=== PATIENT | female | born 1950 | race Caucasian/White ===

== ENCOUNTER 2020-05-12 12:24 | Outpatient (CLI) | payer MEDICARE, OTHER, SELFPAY ==
[2020-05-12 12:57] LABS: Hematocrit 37.7 % (37.0-47.0); Hemoglobin 12.9 g/dL (12.0-15.0); Mean Corpuscular HGB Conc 34.2 g/dl (32-36); Mean Corpuscular Hemoglobin 32.7 pg (26-34); Mean Corpuscular Volume 95.4 fl (80-100); Mean Platelet Volume 9.7 fl (7.4-10.4); Platelet Count Result 253 k/mm3 (150-375); Red Blood Count 3.95 M/mm3 (4.2-5.4); Red Cell Distribution Width 12.2 % (11.5-14.5); White Blood Count 6.7 K/mm3 (4.5-10.0)
[2020-05-12 13:00] LABS: Hemoglobin A1C 5.9 % (<5.7)
[2020-05-12 13:06] LABS: Alanine Aminotransferase 15 U/L (4-35); Albumin Level 4.2 g/dL (3.5-5.1); Alkaline Phosphatase 93 U/L (38-126); Anion Gap 4 mmol/L (8-16); Aspartate Amino Transferase 22 U/L (14-36); Bilirubin,Total 0.6 mg/dL (0.2-1.3); Blood Urea Nitrogen 18 mg/dL (7-17); Calcium 9.1 mg/dL (8.4-10.2); Carbon Dioxide 35 mmol/L (22-30); Chloride 94 mmol/L (98-107); Cholesterol 136 mg/dL (0-200); Estimated Glomerular Filt Rate 49; Glucose 95 mg/dL (65-105); HDL Direct 84 mg/dL; Potassium 5.2 mmol/L (3.4-5.0); Sodium 133 mmol/L (137-145); Triglycerides 80 mg/dL (<150)
[2020-05-12 13:17] LABS: LDL Cholesterol Direct 44 mg/dL
[2020-05-12 13:37] LABS: Vitamin D 25 Hydroxy 61.6 ng/mL
== END 2020-05-12 12:25 | disposition home or self-care (01) ==
PROVIDERS: PCP Internal Medicine; Referring Provider Nurse Practitioner; Visit Provider Internal Medicine
DX: E78.5 Hyperlipidemia, unspecified (principal); D64.9 Anemia, unspecified; E55.9 Vitamin D deficiency, unspecified; R73.9 Hyperglycemia, unspecified
CPT/HCPCS: 36415; 80053; 80061; 82306; 83036; 85027

== ENCOUNTER 2020-05-24 10:23 | Outpatient (CLI) | payer MEDICARE, OTHER, SELFPAY ==
--- NOTE | ~2020-05-24 | CT_ITS ---
EXAMINATION: CT thoracic lumbar wo con EXAM DATE: 05/24/2020 11:48 INDICATION: Postlaminectomy syndrome. Lumbar radiculopathy. TECHNIQUE: Spiral CT thoracolumbar spine was performed without contrast. Axial, coronal and sagittal images of the thoracic spine were reviewed. Axial, coronal and sagittal images of the lumbar spine we re reviewed. The dose-length product (DLP) for this examination was 794.81 mGy-cm. The exposure was tailored according to patient size (auto mA exposure control), and iterative reconstruction (ASIR) wa s used as additional dose reduction technique. Comparison is made to prior examination from 10/11/2018 . FINDINGS: THORACIC SPINE: Again there is lower cervical fusion hardware. There is 2 to 3 mm anterolisthesis C7 on T1. Chronic moderate compression fracture of T7, unchanged compared to prior study, contributing t o some mid thoracic kyphosis. Mild chronic compression fractures at the superior endplates of T11 and T12. Mild to moderate thoracic dextroscoliosis. There are no osteoblastic or osteolytic lesions iden tified. There is moderate lower thoracic neural foraminal stenosis, left T10-11 and 11-12 most narrow ed on exam. Mild thoracic disc disease. Pacemaker. Sternotomy wires. Paraspinal soft tissue is unrema rkable. Mild to moderate emphysema. LUMBAR SPINE: Transitional L5 segment which is fused to the sacrum. There is mild thoracic levoscolio sis. No more than than mild to moderate neural foraminal stenosis at any given lumbar level. Paraspin al soft tissue is unremarkable. There is no significant interval change. There is pain pump device entering at the L4-5 level, tip at the T12-L1 level. There is moderate to severe chronic central comp ression of L3, some retropulsion of the superior endplate up to 4 mm, burst fracture has been treated with methylmethacrylate injection. The other lumbar vertebral bodies appear maintained. No spondylol ysis. Lumbar disc heights are maintained. The vertebral bodies are aligned in the AP dimension. Left iliac bone harvest site. IMPRESSION: 1. Thoracolumbar scoliosis. 2. Chronic thoracic compression fracture and L2 burst fracture. 3. No appreciable interval change. Reviewed, dictated and finalized at location A.
== END 2020-05-24 10:24 | disposition home or self-care (01) ==
PROVIDERS: PCP Internal Medicine; Visit Provider Physician Assistant
DX: M96.1 Postlaminectomy syndrome, not elsewhere classified (principal); M54.17 Radiculopathy, lumbosacral region; G89.29 Other chronic pain; M41.85 Other forms of scoliosis, thoracolumbar region; M48.54XA Collapsed vertebra, not elsewhere classified, thoracic region, initial encounter for fracture
CPT/HCPCS: 72128; 72131

== ENCOUNTER 2020-07-14 14:56 | Outpatient (CLI) | payer MEDICARE, OTHER, SELFPAY ==
--- NOTE | ~2020-07-14 | XR_ITS ---
EXAMINATION: XR knee LT 3V EXAM DATE: 07/14/2020 15:30 INDICATION: Initial encounter following injury, with pain of the left knee. Injury 3 weeks ago. TECHNIQUE: Left knee lateral, frontal AP, frontal PA tunnel, sunrise projections. There is no prior study for comparison. FINDINGS: No evidence osteochondral defect or joint body in the left knee joint. There is mild tric ompartmental left knee primary osteoarthritis. No joint effusion. There are no acute fractures or dis locations identified. There is no subcutaneous gas. There are arterial calcifications, arterioscler osis. There are no radiopaque foreign bodies. IMPRESSION: Mild left knee osteoarthritis. Reviewed, dictated and finalized at location A. [facility]
--- NOTE | ~2020-07-14 | XR_ITS ---
EXAMINATION: XR hip LT min 2V EXAM DATE: 07/14/2020 15:30 INDICATION: Initial encounter following injury, with pain of the left hip. TECHNIQUE: Left hip frontal, crosstable lateral and 'frog-leg' projections for interpretation. Compar justino is made to prior examination from 03/29/2016. FINDINGS: There is total left hip arthroplasty. Hardware is in expected position. There are no acute fractures identified. There is pain pump overlying the left iliac crest. There are arterial calcific ations, arteriosclerosis. IMPRESSION: Intact left hip arthroplasty. No acute findings or interval change. Reviewed, dictated and finalized at location A. DIGGER IMPRESSION: Intact left hip arthroplasty. No acute findings or interval change .
== END 2020-07-14 14:57 | disposition home or self-care (01) ==
LOC: ANHIMG 15:04
PROVIDERS: PCP Internal Medicine; Visit Provider Nurse Practitioner
DX: M25.552 Pain in left hip (principal); M17.12 Unilateral primary osteoarthritis, left knee
CPT/HCPCS: 73502; 73562

== ENCOUNTER 2020-12-22 11:56 | Inpatient (IN) | payer MEDICARE, OTHER, SELFPAY ==
[2020-12-22] VITALS (26 sets, daily range): BP systolic 71–163; BP diastolic 50–91; PULSE 75–109; RESP 11–26; TEMP 36.6–36.7; O2SAT 89–100; BMI 22.7
--- NOTE | ~2020-12-22 | XR_ITS ---
XR chest port-a-cath/central 12/22/2020 17:07 Indication: Central line placement Procedure: Supine view of the chest Comparison: Comparison to multiple prior studies sequentially, with oldest reviewed study dated 09/2016. Findings: Status post median sternotomy for CABG. Heart size upper normal. Central venous catheter ti p in the SVC. Patchy bilateral infiltrates. No significant pleural effusion or pneumothorax. Pacemake r leads are stable. No acute osseous abnormality. There are surgical changes consistent with cervical fusion. Impression: 1: Patchy bilateral airspace disease which may represent pneumonia or asymmetric edema. Reviewed, dictated and finalized at location A. Impression: 1: Patchy bilateral airspace disease which may represent pneumonia or asymmetri c edema.
--- NOTE | ~2020-12-22 | CT_ITS ---
EXAMINATION: CT abdomen pelvis wo con DATE: 12/23/2020 12:07 INDICATION: Fall, assess position pain pump TECHNIQUE: Computed tomography (CT) of the abdomen and pelvis was performed without intravenous contr ast. The dose-length product (DLP) was 628.39 mGy-cm. Automated exposure control and iterative recons truction technique were employed. COMPARISON: 10/10/2018 FINDINGS: There is mild atelectasis of the lung bases. Cardiomegaly is noted. There are changes of pr ior cardiac surgery. Small pleural effusions are noted. The liver, spleen, pancreas, and adrenal glan ds are normal. Stones or sludge are present in the nondistended gallbladder. There is mild atrophy of the kidneys. The bladder is decompressed by Cedeno catheter. There is calcified atherosclerosis of th e aorta and many of the other arteries. A pain pump is present in the subcutaneous tissues of the lef t lower abdominal wall. The pump appears to be intact. Tubing courses into the central spinal canal a t the level of L3 on the left. There is fat stranding adjacent to the descending colon. Streak artifa ct from bilateral hip arthroplasties obscures visualization of the pelvis. There is a moderate volume of colonic stool. No pathologically enlarged abdominal or pelvic lymph nodes are identified. There i s no free intraperitoneal gas or evidence of bowel obstruction. There is atrophy of the left iliopsoa s muscle. There is an L3 compression fracture with vertebroplasty change. A chronic L1 compression fr acture is stable. There are chronic bilateral sacral insufficiency fractures. IMPRESSION: 1. Patent, grossly unchanged in position. 2. Bilateral inflammatory change adjacent to the descending colon which could reflect colitis. Reviewed, dictated and finalized at location A. IMPRESSION: 1. Patent, grossly unchanged in position. 2. Bilateral inflammatory change adjacent to the descending colon which could r eflect colitis.
--- NOTE | ~2020-12-22 | CT_ITS ---
EXAMINATION: CT cervical spine wo con DATE: 12/22/2020 13:04 INDICATION: Neck injury. TECHNIQUE: Computed tomography (CT) of the cervical spine was performed without intravenous contrast. Automated exposure control and iterative reconstruction technique were employed. The dose-length pro duct was 262.45 mGy-cm. COMPARISON: None FINDINGS: There is mild emphysema. There is 2 mm anterolisthesis of C7 on T1. There are changes of an terior fusion procedure from C3 to C7 with healed interbody bone graft and anterior plate and screws. Vertebral body heights are normal. No fracture. Intervertebral disc heights are normal. There is a b enign bone island in T1 spinous process. The following disc levels are specifically discussed: C2-C3: There is mild bilateral uncovertebral joint osteoarthritis. There is severe bilateral facet shakir int osteoarthritis. There is mild right neural foraminal stenosis. There is mild central canal stenos is. C3-C4: There is mild left uncovertebral joint hypertrophy. There is severe bilateral facet joint oste oarthritis. There is mild bilateral neural foraminal stenosis. There is no central canal stenosis. C4-C5: There is mild left uncovertebral joint hypertrophy. There is mild bilateral facet joint hypert rophy. There is no neural foraminal stenosis. There is no central canal stenosis. C5-C6: There is no uncovertebral joint hypertrophy. There is no facet joint hypertrophy. There is no neural foraminal stenosis. There is no central canal stenosis. C6-C7: There is no uncovertebral joint hypertrophy. There is mild bilateral facet joint hypertrophy. There is mild bilateral neural foraminal stenosis. There is no central canal stenosis. C7-T1: There is mild bilateral uncovertebral joint hypertrophy. There is severe bilateral facet joint osteoarthritis. There is mild bilateral neural foraminal stenosis. There is no central canal stenosi s. IMPRESSION: 1. No fracture. 2. Mild cervical spondylosis. 3. Anterior fusion procedure from C3 to C7. Reviewed, dictated and finalized at location B.
--- NOTE | ~2020-12-22 | CT_ITS ---
EXAMINATION: CT brain wo con INDICATION: Dizziness and fall COMPARISON: 11/08/2018 TECHNIQUE: Standard unenhanced head CT. The dose-length product (DLP) was 1210.66 mGy-cm. The mA was adjusted according to patient size. Iterative reconstruction technique was employed. FINDINGS: There is no acute intraparenchymal hemorrhage. No evidence of mass lesion. No evidence of a cute infarction. There is mild periventricular and subcortical hypodensity probably related to small vessel ischemic disease. There is mild prominence of the sulci and ventricles related to cerebral atr ophy. Intracranial calcified cerebral atherosclerosis is noted. There are no extra-axial collections. There is no mass effect or midline shift. Changes in the globes are likely from ocular lens surgery. There are surgical changes in the sinuses. IMPRESSION: 1. No acute intracranial abnormality. 2. Age related findings. Reviewed, dictated and finalized at location A.
--- NOTE | ~2020-12-22 | XR_ITS ---
EXAMINATION: XR hip LT min 3V w AP pelvis DATE: 12/22/2020 12:52 INDICATION: Left hip pain. Fall. TECHNIQUE: An anteroposterior view of the pelvis and 3 views of left hip were obtained. COMPARISON: Left hip radiographs 07/14/2020 FINDINGS: There is a total left hip arthroplasty in near-anatomic alignment. There is a bipolar right hip hemiarthroplasty in near-anatomic alignment. No periprosthetic lucency to suggest loosening or i nfection. A pump overlies left abdomen. The pump tubing terminates to the left of midline. There are surgical clips in right thigh. There are old healed fractures of right superior and inferior pubic ra mi. No acute fracture. IMPRESSION: 1. Total left hip arthroplasty in near-anatomic alignment. 2. Bipolar right hip hemiarthroplasty in near-anatomic alignment. 3. Partially visualized pump tubing with terminus to the left of midline, which is a change from prio r imaging. Reviewed, dictated and finalized at location B. IMPRESSION: 1. Total left hip arthroplasty in near-anatomic alignment. 2. Bipolar right hip hemiarthroplasty in near-anatomic alignment. 3. Partially visualized pump tubing with terminus to the left of midline, which is a change from prior imaging.
--- NOTE | ~2020-12-22 | XR_ITS ---
EXAMINATION: XR chest 2V DATE: 12/22/2020 12:52 INDICATION: Shortness of breath. Weakness. TECHNIQUE: Frontal and lateral views of the chest were obtained. COMPARISON: Chest single view 11/08/2018, thoracic spine CT 05/24/2020 FINDINGS: Lung volumes are small. There is mild atelectasis in the lower lung zones. No pleural effus ion or pneumothorax. The heart size is normal. Median sternotomy wires and mediastinal surgical clips are seen, likely from prior coronary artery bypass grafting. There is a left chest wall pacer with l yvan in the right atrium and right ventricle. There are surgical clips in the abdomen. There are castillo ges of anterior fusion procedure in cervical spine. There is a chronic burst fracture of T7. A pump o verlies the left abdomen. IMPRESSION: 1. Small lung volumes with mild atelectasis in the lower lung zones. Reviewed, dictated and finalized at location B.
--- NOTE | 2020-12-22 12:18 | ECG_ITS ---
Measurements Intervals Irmo Rate: 79 P: 17 RI: 197 QRS: 5 QRSD: 118 T: 259 QT: 395 QTc: 455 Interpretive Statements SINUS RHYTHM INCOMPLETE RIGHT BUNDLE BRANCH BLOCK CONSIDER INFERIOR INFARCT, AGE INDETERMINATE BORDERLINE ST-T WAVE ABNORMALITY- ANTEROLAT/HIGH LAT LEADS BASELINE ARTIFACT- I, II, III, AVR, AVL, AVF, V4-V6 ABNORMAL ECG Electronically Signed On 12-22-2020 12:45:02 CDT by Marcos Figueroa D.O.
[2020-12-22 12:47] LABS: Basophils Percent Auto 0.4 % (0.2-1.2); Eosinophils Absolute Auto 0.3 K/mm3 (0-0.3); Hematocrit 35.5 % (37.0-47.0); Hemoglobin 11.6 g/dL (12.0-15.0); Immature Granulocyte Absolute 0.02 K/mm3 (0.00-0.031); Immature Granulocyte Percent A 0.2 % (0-0.5); Lymphocytes Absolute Auto 0.59 K/mm3 (0.9-3.2); Lymphocytes Percent Auto 6.4 % (18.3-44.2); Mean Corpuscular HGB Conc 32.7 g/dl (32-36); Mean Corpuscular Hemoglobin 33.3 pg (26-34); Monocytes Absolute Auto 0.4 K/mm3 (0.1-0.6); Monocytes Percent Auto 4.3 % (2.6-8.5); Neutrophils Absolute Auto 7.9 K/mm3 (1.3-6.7); Neutrophils Percent Auto 85.7 % (45.5-73.1); Platelet Count Result 262 k/mm3 (150-375); Red Blood Count 3.48 M/mm3 (4.2-5.4); Red Cell Distribution Width 13.8 % (11.5-14.5); White Blood Count 9.2 K/mm3 (4.5-10.0)
[2020-12-22 12:59] LABS: Alanine Aminotransferase 16 U/L (4-35); Alkaline Phosphatase 94 U/L (38-126); Anion Gap 10 mmol/L (8-16); Aspartate Amino Transferase 70 U/L (14-36); Bilirubin,Total 0.3 mg/dL (0.2-1.3); Blood Urea Nitrogen 57 mg/dL (7-17); Calcium 8.6 mg/dL (8.4-10.2); Carbon Dioxide 21 mmol/L (22-30); Chloride 104 mmol/L (98-107); Estimated CRCL calculation 23 ml/min; Estimated Glomerular Filt Rate 25; Glucose 90 mg/dL (65-105); Potassium 4.1 mmol/L (3.4-5.0); Sodium 135 mmol/L (137-145)
[2020-12-22] MEDS: SODIUM CHLORIDE 0.9% IV 1,000 ML 999 ML IV CONT (13:20)
[2020-12-22 13:46] LABS: Add Urine Microscopic? YES; Appearance Urine Clear (Clear); Bacteria Urine Trace /hpf; Bilirubin Urine Negative (Negative); Blood Urine 1+ (Negative); Color Urine Yellow (Yellow); Glucose Urine UA Negative (Negative); Ketones Urine Negative (Negative); Leukocyte Esterase Ur Negative LEU/UL (Negative); Nitrate Urine Negative (Negative); Protein Urine Negative (Negative); RBC Urine 0-2 /hpf (0-2); Specific Grav Ur 1.012 (1.001-1.035); Urobilinogen Urine Negative mg/dL (<2.0); WBC Urine 0-3 /hpf
--- NOTE | 2020-12-22 14:39 | ED.GENADULT ---
HPI - General Adult General Chief complaint: Weakness Stated complaint: Falls,L hip and leg pain Time Seen by Provider: 12/22/20 12:24 Source: patient and family History of Present Illness HPI narrative: Patient is a 70 y/o female complaining of generalized weakness for 1 week. There is no alleviating or exacerbating factor. Son states that patient fell 1 week ago and has some left hip pain. Patient also hit her head. She has some right forehead bruise. She has no nausea or vomiting. Related Data Home Medications Medication Instructions Recorded Confirmed mirtazapine 30 mg tablet 30 mg PO HS 06/19/19 12/22/20 morphine 30 mg capsule,extended 30 mg PO Q12H cap 06/19/19 12/22/20 release 24 hr multiphase duloxetine 30 mg capsule,delayed 30 mg PO DAILY cap 07/04/19 12/22/20 release naloxegol 25 mg tablet 25 mg PO QAM 07/04/19 12/22/20 quetiapine 300 mg tablet 100 mg PO BID 07/04/19 12/22/20 atorvastatin 40 mg PO DAILY 12/22/20 12/22/20 bisacodyl 5 mg PO BID 12/22/20 12/22/20 buspirone 7.5 mg PO TID 12/22/20 12/22/20 carvedilol 6.25 mg PO Q12H 12/22/20 12/22/20 cetirizine 10 mg PO DAILY 12/22/20 12/22/20 cholecalciferol (vitamin D3) 50 mcg PO DAILY 12/22/20 12/22/20 [Vitamin D3] cyclobenzaprine 10 mg PO TID 12/22/20 12/22/20 diclofenac sodium 75 mg PO BID 12/22/20 12/22/20 duloxetine 60 mg PO DAILY 12/22/20 12/22/20 ferrous sulfate 325 mg PO DAILY 12/22/20 12/22/20 furosemide 20 mg PO DAILY 12/22/20 12/22/20 hydrocodone-acetaminophen 1 tablet PO Q4-6H PRN 12/22/20 12/22/20 lisinopril 5 mg PO DAILY 12/22/20 12/22/20 nabumetone 500 mg PO DAILY 12/22/20 12/22/20 oxycodone-acetaminophen 1 tablet PO Q8H 12/22/20 12/22/20 pantoprazole 40 mg PO DAILY 12/22/20 12/22/20 quetiapine 200 mg PO DAILY 12/22/20 12/22/20 Allergies Allergy/AdvReac Type Severity Reaction Status Date / Time ciprofloxacin Allergy Severe Unresponsiv Verified 10/28/20 08:44 e Review of Systems Constitutional: Constitutional: Denies chills, Denies fever(s), Denies headache(s) and Reports weakness Eyes: Eyes: Denies blurry vision ENT: Denies headache(s) and Denies neck pain Cardiovascular: Cardiovascular: Denies chest pain and Denies dyspnea Respiratory: Respiratory: Denies cough and Denies dyspnea Gastrointestinal: Gastrointestinal: Denies abdominal pain, Denies diarrhea, Denies nausea and Denies vomiting Genitourinary: Genitourinary: Denies hematuria and Denies dysuria Musculoskeletal: Musculoskeletal: Denies back pain, Reports arthralgias (hip pain) and Denies neck pain Neurologic: Denies headache(s) and Reports weakness PMFSH Past Medical History Medical History Anemia, unspecified Anxiety Cervical fusion syndrome Chronic pain Hyperlipidemia Hyponatremia 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) Serum potassium elevated Surgical History Surgical History Cataract extraction status H/O abdominal hysterectomy H/O colonoscopy H/O laminectomy H/O lumbar discectomy H/O Spinal surgery History of bilateral hip arthroplasty I am not sure if they replaced or repaired Hx of cholecystectomy S/P CABG (coronary artery bypass graft) S/P CABG x 3 Family History Family History Mother Depression Cerebrovascular accident Sibling Depression Father Cerebrovascular accident, Onset Age: 83 Family history of coronary artery disease Patient's father is Other Diabetes mellitus Family history of arthritis Hypertension Social History Social History Social History: The patient tells me that she recently quit smoking. She denies any alcohol except she does occasionally have a beer 2. She has 2 sons. She is disabled. She desires to be a full code. She says her sons are the durable power at
[2020-12-22] MEDS: oxyCODONE/ACETAMINOPHEN (*CRX) 5-325 MG TABLET 1 TABLET PO (15:38)
--- NOTE | 2020-12-22 15:55 | PC.NURSE ---
Report given to IMU, however pt blood pressure still low and Dr Forde stating that pt may have to go to ICU
--- NOTE | 2020-12-22 16:31 | PC.NURSE ---
called pharmacy about Lyrica. They state they will send it up
[2020-12-22] MEDS: PREGABALIN (*CRX) 50 MG CAPSULE PO ×2 (17:16→21:04)
[2020-12-22 17:37] LABS: Acetaminophen < 10 ug/mL (10-30)
[2020-12-22] MEDS: NOREPINEPHRINE 8 MG/D5W 250 ML 8 MG/250 ML BAG 15 MG IV CONT (17:48)
[2020-12-22] MEDS: SODIUM CHLORIDE 0.9% IV 1,000 ML 125 ML IV CONT (17:48)
[2020-12-22 17:50] LABS: Troponin I 0.013 ng/mL (0.000-0.034)
--- NOTE | 2020-12-22 18:00 | PC.NURSE ---
This patient, Domonique Gonzales, was admitted to Intensive Care Unit-6. Patient/family oriented to hospital policies and general routines including ID bracelet, bed and alarms, visiting hours, pain management, procedures, bathroom and other care routines, personal items, smoking policy, room service/diet, and visiting hours. Information on how to activate the Rapid Response Team has been discussed. Patient/Family are encouraged to report perceived risks to care and to ask questions if they do not understand what they are told or what they should do.
[2020-12-22 18:15] LABS: Lactic Acid Reflex < 0.5 mmol/L (0.7-2.1)
[2020-12-22] MEDS: NOREPINEPHRINE 8 MG/D5W 250 ML 8 MG/250 ML BAG 13.13 MG IV CONT (18:30)
[2020-12-22] MEDS: hydrOXYzine HCL 25 MG TABLET PO (19:45)
--- NOTE | 2020-12-22 20:00 | PM.IMHP ---
H&P: HPI History of Present Illness Date/Time: 12/22/20 20:00 this is a 70-year-old female who has a history of chronic pain and has a pain pump. The patient tells me that she has fallen several times over last couple days. She has a bruise to her right forehead her knees and her right foot. The patient has chronic pain medication. She said she fell and hurt her hip last week she hit her head and is confused. The patient is quite anxious today. Her speech is slurred. Intracranial abnormality. Age-related findings. Spine was read as no fracture mild cervical spondylosis. Anterior fusion procedure from C3-C7. Chest x-ray was read as patchy bilateral airspace disease which may represent pneumonia or asymmetric edema. The patient was given IV fluids, Lyrica, Percocet and then started on Levophed drip from the emergency room. A central line was placed in the emergency room. Patient's creatinine is 2.0 which was last reported as 1.1 a year ago. Was normal and her troponin was normal. The patient is very anxious and her bed. The patient stated that she quit smoking several weeks ago. The patient is being admitted to ICU observation on the date of service of 12/22/2020 Chief Complaint: Confusion Review of Systems Review of Systems: All systems reviewed & are unremarkable except as noted in HPI and below Constitutional: Constitutional: Reports as per HPI and Reports no additional constitutional complaints Eyes: Eyes: Reports as per HPI and Reports no additional eye complaints ENT: Reports system reviewed and no additional complaints, except as documented and Reports Normal hearing present Cardiovascular: Cardiovascular: Reports no additional cardiovascular complaints Respiratory: Respiratory: Reports no additional respiratory complaints and Reports no additional respiratory complaints Gastrointestinal: Gastrointestinal: Reports as per HPI and Reports no additional gastrointestinal complaints Musculoskeletal: Musculoskeletal: Reports no additional musculoskeletal complaints Integumentary/Breasts: Skin/Breast: Reports system reviewed and no additional complaints, except as docu and Reports as per HPI Neurologic: Reports system reviewed and no additional complaints, except as documented, Reports as per HPI and Reports Normal hearing present Psychiatric: Psychiatric: Reports no additional psychiatric complaints and Reports as per HPI Endocrine: Endocrine: Reports no additional endocrine complaints Hematologic/Lymphatic: Hematologic/Lymphatic: Reports no additional hematologic/lymphatic complaints Allergic/Immunologic: Allergic/Immunologic: Reports no additional allergic/immunologic complaints [facility] Past Medical History Medical History (Updated 12/22/20 @ 20:17 by Jessica Epstein NP) Anemia, unspecified Anxiety Cervical fusion syndrome Chronic pain Hyperlipidemia Hyponatremia 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) Serum potassium elevated Surgical History Surgical History (Updated 12/22/20 @ 20:10 by Jessica Epstein NP) Cataract extraction status H/O abdominal hysterectomy H/O colonoscopy H/O laminectomy H/O lumbar discectomy H/O Spinal surgery History of bilateral hip arthroplasty I am not sure if they replaced or repaired Hx of cholecystectomy S/P CABG (coronary artery bypass graft) S/P CABG x 3 Family History Family History Mother Depression Cerebrovascular accident Sibling Depression Father Cerebrovascular accident, Onset Age: 83 Family history of coronary artery disease Patient's father is Other Diabetes mellitus Family history of arthritis Hypertension Social History Social History (Updated 12/22/20 @ 20:11 by Jessica Epstein NP) Social History: The patient tells me that she recently quit smoking. She denies any alcohol except she does occasionally have a beer 2. She has 2 sons. She is disabled. She d
[2020-12-22] MEDS: LORazepam INJ (*CRX) 2 MG/ML VIAL IV PUSH (21:05)
[2020-12-22 21:59] LABS: Troponin I 0.101 ng/mL (0.000-0.034)
--- NOTE | 2020-12-22 23:22 | PC.NURSE ---
Addendum entered by Vance Lawson RN 12/22/20 23:26: 2040 12/22/20 Original Note: Dr. Yates notified of anxiety complaint, patient trying to get out of bed and seems very anxious. States she just can't sit still. Patient noted to have extreme random movements and cannot remain in bed. Order for PRN ativan received. Continue to titrate down levophed. Patient also unable to void after multiple attempts on bed crowe. May place mejía catheter.
[2020-12-23] VITALS (20 sets, daily range): BP systolic 88–125; BP diastolic 54–84; PULSE 66–98; RESP 11–20; TEMP 36.2–36.9; O2SAT 90–100
[2020-12-23] MEDS: SODIUM CHLORIDE 0.9% IV 1,000 ML 125 ML IV CONT ×3 (01:43→18:20)
[2020-12-23] MEDS: ONDANSETRON INJ 4 MG/2 ML VIAL IV PUSH (03:50)
[2020-12-23 04:05] LABS: Hematocrit 31.6 % (37.0-47.0); Hemoglobin 10.2 g/dL (12.0-15.0); Mean Corpuscular HGB Conc 32.3 g/dl (32-36); Mean Corpuscular Hemoglobin 33.4 pg (26-34); Mean Corpuscular Volume 103.6 fl (80-100); Mean Platelet Volume 9.7 fl (7.4-10.4); Platelet Count Result 223 k/mm3 (150-375); Red Blood Count 3.05 M/mm3 (4.2-5.4); Red Cell Distribution Width 13.7 % (11.5-14.5)
[2020-12-23 04:28] LABS: Alanine Aminotransferase 18 U/L (4-35); Albumin Level 3.2 g/dL (3.5-5.1); Alkaline Phosphatase 83 U/L (38-126); Anion Gap 7 mmol/L (8-16); Aspartate Amino Transferase 88 U/L (14-36); Bilirubin,Total 0.3 mg/dL (0.2-1.3); Blood Urea Nitrogen 36 mg/dL (7-17); Carbon Dioxide 23 mmol/L (22-30); Chloride 111 mmol/L (98-107); Estimated CRCL calculation 30 ml/min; Estimated Glomerular Filt Rate 35; Glucose 83 mg/dL (65-105); Lactate Dehydrogenase 687 U/L (313-618); Magnesium 1.8 mg/dL (1.6-2.3); Potassium 3.8 mmol/L (3.4-5.0); Sodium 141 mmol/L (137-145)
[2020-12-23 05:13] LABS: Troponin I 0.091 ng/mL (0.000-0.034)
--- NOTE | 2020-12-23 07:46 | ECHO_ITS ---
Patient Info Name: Domonique Gonzales Age: 70 years : 1950 Gender: Female Ht: 66 in Wt: 144 lbs BSA: 1.75 m2 HR: 92 bpm BP: 94 / 56 mmHg Heart Rhythm: Sinus Rhythm Technical Quality: Good Exam Date: 12/23/2020 8:13 AM Exam Location: [facility] Pulmonary Patient Status: Inpatient Admit Date: 12/22/2020 Staff Ordering Physician: Benjamín Yates MD Field Handyman: Hipolito Levin RDCS, RT Attending Provider: Dave Reyes MD Referring Physician: Milan FARFAN; Exam Type: CA echo dop color flow w con Study Info Indications I50.9 - Heart failure, unspecified Complete two-dimensional, color flow and Doppler transthoracic echocardiogram is performed with contrast to opacify the left ventricle and to improve the deliniation of the left ventricle endocardial borders. Strain analysis performed. Summary 1. Left ventricular chamber size, systolic function and diastolic function are normal with no regional wall motion abnormalities with an estimated ejection fraction of >70%. Calculated ejection fraction 76%. Mild LVH. Normal global longitudinal strain,-20%. 2. Right ventricular chamber dimension is mildly enlarged with normal systolic function. 3. Left atrial chamber dimension is moderately enlarged. 4. There is mild to moderate mitral valve regurgitation. 5. Mild pulmonary hypertension, estimated pulmonary arterial systolic pressure is 39 mmHg. 6. There is moderate tricuspid valve regurgitation which appears induced by the pacing wire. 7. Normal sinus rhythm. 8. Somewhat technically difficult study, IV definity echo contrast used. Left Ventricle Left ventricular chamber dimension is normal. Left ventricular systolic function is normal, estimated at Empty. There is mildly increased left ventricular wall thickness. Left ventricular septal wall motion is normal. The left ventricular diastolic function is normal. Global longitudinal strain is normal at -20 %. Left ventricular chamber size, systolic function and diastolic function are normal with no regional wall motion abnormalities with an estimated ejection fraction of >70%. Calculated ejection fraction 76%. Mild LVH. Normal global longitudinal strain,-20%. Right Ventricle Right ventricular chamber dimension is mildly enlarged with normal systolic function. Right ventricular systolic function is normal. Left Atria Left atrial chamber dimension is moderately enlarged. Right Atria Right atrial chamber dimension is normal. Linear artifact in the right atrium suggestive of catheter(s), pacemaker lead(s), or ICD lead(s). Aortic Valve The aortic valve is trileaflet. There is mild aortic valve sclerosis. There is no aortic valve stenosis. There is no aortic valve regurgitation. Pulmonic Valve The pulmonic valve is normal. There is no pulmonic valve stenosis. There is no pulmonic regurgitation. Mitral Valve The mitral valve has normal leaflets. There is no mitral valve stenosis. There is mild to moderate mitral valve regurgitation. Tricuspid Valve The tricuspid valve leaflets are normal. There is no significant tricuspid valve stenosis. There is moderate tricuspid valve regurgitation which appears induced by the pacing wire. Mild pulmonary hypertension, estimated pulmonary arterial systolic pressure is 39 mmHg. Pericardium/Pleural The pericardium appears normal. There is no pericardial effusion. Inferior Vena Cava Normal inferior vena cava with >50% collapse upon inspiration c
[2020-12-23] MEDS: SODIUM CHLORIDE 0.9% IV 1,000 ML 999 ML IV CONT (08:15)
[2020-12-23] MEDS: PERFLUTREN LIPID MICROSPHERES 1.5 ML VIAL DILUTED TO 10 ML TOTAL VOLUME IV PUSH (08:45)
[2020-12-23] MEDS: FERROUS SULFATE 324 MG TABLET PO (09:20)
[2020-12-23] MEDS: PREGABALIN (*CRX) 50 MG CAPSULE PO ×3 (09:20→17:45)
[2020-12-23] MEDS: ATORVASTATIN 40 MG TABLET PO (09:20)
[2020-12-23] MEDS: DULoxetine HCL 60 MG CAPSULE.DR PO (09:20)
[2020-12-23] MEDS: BISACODYL 5 MG TABLET EC PO ×2 (09:20→17:44)
[2020-12-23] MEDS: PANTOPRAZOLE 40 MG TABLET PO (09:20)
--- NOTE | 2020-12-23 11:50 | WPDCNINT ---
Assessment and Plan Assessment and plan (1) Shock: Code(s): R57.9 - Shock, unspecified Status: Acute Assessment and Plan: Patient presented with generalized weakness, was hypotensive in the ER requiring 30 mL/kilogram body weight IV fluids -hypotension was refractory to fluids central line inserted and patient was started on Levophed -Levophed was discontinued early this morning, blood pressures are stable but borderline with adequate mean arterial pressures -will continue to monitor in ICU today -shows partially visualized pain pump tubing with terminus to the left of midline which is a change from prior imaging. -will obtain CT scan of the abdomen and pelvis is to see if there is any rupture of the tubing from the pain pump. Which may be the cause of her hypotension (2) Dehydration: Code(s): E86.0 - Dehydration Status: Acute Assessment and Plan: Patient could also be dehydrated because her creatinine was much elevated from baseline -patient has been adequately fluid-resuscitated and now tolerating p.o. diet (3) Acute kidney injury: Code(s): N17.9 - Acute kidney failure, unspecified Status: Acute Assessment and Plan: Could be related to hypotension, shock, hypovolemia -patient adequately fluid-resuscitated with improvement in creatinine and urine function -additional IV fluids were given this morning -continue to monitor renal function, electrolytes and urine output (4) Chronic pain: Code(s): G89.29 - Other chronic pain Status: Chronic Assessment and Plan: Patient has had multiple back surgeries, has chronic back pain, on a pain pump Additional Plan Nutrition: Tolerating p.o. diet DVT prophylaxis: SCD, lovenox Discussed with patient updated her with her condition and plan of care. I answered all questions Code status: Full code Critical care time spent: 45 minutes This dictation may have been done utilizing a voice recognition system. Attempts have been made to correct errors. However, there may be uncorrected grammatical, spelling, and recognition errors present. Due to a high probability of clinically significant, life threatening deterioration, the patient required my highest level of preparedness to intervene emergently and I personally spent this critical care time directly and personally managing the patient. This critical care time included obtaining a history; examining the patient; pulse oximetry; ordering and review of studies; arranging urgent treatment with development of a management plan; evaluation of patient's response to treatment; frequent reassessment; and discussions with other providers. It was exclusive of separately billable procedures and treating other patients and teaching time. Please see Assessment and Plan section and the rest of the note for further information on patient assessment and treatment [employer] Inspector Consult Note Consult date: 12/23/20 Time Seen: 07:03 Reason for consult: Hypotension, shock, fall HPI: Domonique Gonzales is a 70 year old female multiple spine surgeries on a pain pump with oral narcotics at home, CABG, presented to the ED on 12/22/2020 complains of generalized weakness for a week. She also had a fall has been complaining of some left hip pain. She did hit her head and has a bruise on the right side of the forehead. Denied nausea vomiting, no fevers, no chills. CT brain did not show any acute intracranial abnormalities, volumes with mild atelectasis in the lower lung zones. Left hip x-ray showed Total left hip arthroplasty in near-anatomic alignment.2. Bipolar right hip hemiarthroplasty in near-anatomic alignment.3. Partially visualized pump tubing with terminus to the left of midline, which is a change from prior imaging. Cervical CT spine with no fracture, mild cervical spondylosis, anterior fusion procedure from C3 to C7 in the ER despite giving her IV fluids at 30 mL/kilogram of body weight. Patient was
[2020-12-23] MEDS: CENTRAL LINE FLUSH 10 ML IV PUSH ×3 (14:27→17:45)
--- NOTE | 2020-12-23 15:11 | PM.IMPN ---
Progress Note: A&P Assessment and Plan (1) Shock: Code(s): R57.9 - Shock, unspecified Status: Acute Assessment and Plan: Patient with BP dropping to 71/50 requiring central line placement. Levophed started and patient admitted to the ICU. Consider related to dehydration and/or sepsis and/or narcotics. Levophed able to be weaned off. Remains in the ICU due to BP still being soft. Contineu close observation. (2) Altered mental state: Code(s): R41.82 - Altered mental status, unspecified Status: Acute Assessment and Plan: Mental status better overall but still confused. Unclear if related to the shock/dehydration or from the narcotics. May need to turn down the pain pump. Continue to monitor (3) Elevated troponin: Code(s): R77.8 - Other specified abnormalities of plasma proteins Status: Acute Assessment and Plan: Troponin peaked at 0.10. SHe does have chronic chest pain associates with anxiety and feel less likely related to ischemia. Nik repeat EKG and compare. Repeat Trop to see if it is climbing again. Echo ordered and is pending - follow up on echo results. Add ASA. Contineu tele. COnsider ischemic eval before discharge. Repeat Trop normal. EKG showing no change. Continue to folow. (4) Colitis: Code(s): K52.9 - Noninfective gastroenteritis and colitis, unspecified Status: Acute Assessment and Plan: CT scan showing possible descending colitis. Suspect this is either a false reading or related to ischemia from the HoTN. Agree with abx at this time given the HoTN. Monitor. Stool studies if she develops diarrhea. (5) Acute kidney injury: Code(s): N17.9 - Acute kidney failure, unspecified Status: Acute Assessment and Plan: Creatinine is 2.0 on admission. She was treated with IV fluids and Cr better today. Suspect related to dehydration/pre-renal. continue with IV fluid. Avoid any nephrotoxic medications. Continue to monitor (6) Anxiety: Code(s): F41.9 - Anxiety disorder, unspecified Status: Chronic Assessment and Plan: Mode stable but does have anxiety at times. Cymbalta resumed. Seroquel added back. Lorazepam available as needed. Resume Buspirone. Monitor. (7) Anemia, unspecified: Code(s): D64.9 - Anemia, unspecified Status: Chronic Assessment and Plan: Hgb 11.6 on admission. Has normal Hgb in the past. Macrocytosis noted. No signs and symptoms of bleeding at this time. Check B12/folate. Will continue to monitor. (8) Chronic pain: Code(s): G89.29 - Other chronic pain Status: Chronic Assessment and Plan: Pain appears to be reasonably well controlled. Lyrica resumed. Still has pain pump in place with hip xray showing that tubing may have been displaced. Abd CT showing that pump and tubing appeared to be intact. May need to have pump turned down/off if no change in her mental status. (9) Essential (primary) hypertension: Code(s): I10 - Essential (primary) hypertension Status: Acute Assessment and Plan: The patient is hypotensive on presentation. As above. Lisinopril. Coreg and Lasix on hold. (10) DVT prophylaxis: Code(s): Z29.9 - Encounter for prophylactic measures, unspecified Status: Acute Assessment and Plan: Lovenox Subjective Date/time seen: 12/23/20 15:11 Interval history: 70yo female with chronic pain syndrome and pain pump in place here for generalized weakness and falls and found to be HoTN. Patient slept okay last night. She is complaining of chest pain that comes and goes and feels like pressure. She has had this for 2 weeks. Patient alert but confuse. Chest pain worse when she is nervous/upset. She is unclear if she has had a stress test (later states she has a 'stress test' in her chest and points to her pacemaker). Review of Syste
--- NOTE | 2020-12-23 15:15 | ECG_ITS ---
Measurements Intervals [place] Rate: 71 P: 60 IA: 205 QRS: 33 QRSD: 123 T: 73 QT: 439 QTc: 480 Interpretive Statements SINUS RHYTHM BORDERLINE T WAVE ABNORMALITY- ANT/HIGH LAT LEADS BASELINE ARTIFACT- I, II, III, AVR, AVL, AVF BORDERLINE ECG Electronically Signed On 12-23-2020 16:20:25 CDT by Marcos Figueroa D.O.
[2020-12-23 16:34] LABS: Troponin I 0.032 ng/mL (0.000-0.034)
[2020-12-23] MEDS: busPIRone HCL 2.5 MG TABLET PO (17:44)
[2020-12-23] MEDS: ASPIRIN 81 MG CHEWABLE TABLET PO (17:44)
[2020-12-23] MEDS: busPIRone HCL 5 MG TABLET PO (17:45)
--- NOTE | 2020-12-23 21:21 | PC.NURSE ---
This patient, Domonique Gonzales, was transferred to [facility] on 12/23/20 at 2121. Personal belongings sent with patient. Report given to LISA Herrera.
[2020-12-24] VITALS (18 sets, daily range): BP systolic 100–148; BP diastolic 56–89; PULSE 60–72; RESP 12–18; TEMP 36.6–36.9; O2SAT 91–99
[2020-12-24] MEDS: ACETAMINOPHEN 500 MG TABLET 1000 MG PO (00:41)
[2020-12-24] MEDS: SODIUM CHLORIDE 0.9% IV 1,000 ML 125 ML IV CONT (03:16)
[2020-12-24 05:15] LABS: Basophils Percent Auto 0.5 % (0.2-1.2); Eosinophils Absolute Auto 0.5 K/mm3 (0-0.3); Eosinophils Percent Auto 8.9 % (0-4.4); Hematocrit 26.8 % (37.0-47.0); Hemoglobin 8.6 g/dL (12.0-15.0); Immature Granulocyte Absolute 0.01 K/mm3 (0.00-0.031); Immature Granulocyte Percent A 0.2 % (0-0.5); Lymphocytes Absolute Auto 0.87 K/mm3 (0.9-3.2); Lymphocytes Percent Auto 15.8 % (18.3-44.2); Mean Corpuscular HGB Conc 32.1 g/dl (32-36); Mean Corpuscular Hemoglobin 33.6 pg (26-34); Mean Corpuscular Volume 104.7 fl (80-100); Mean Platelet Volume 10.1 fl (7.4-10.4); Monocytes Absolute Auto 0.4 K/mm3 (0.1-0.6); Monocytes Percent Auto 7.4 % (2.6-8.5); Neutrophils Absolute Auto 3.7 K/mm3 (1.3-6.7); Neutrophils Percent Auto 67.2 % (45.5-73.1); Platelet Count Result 181 k/mm3 (150-375); Red Blood Count 2.56 M/mm3 (4.2-5.4); Red Cell Distribution Width 14.3 % (11.5-14.5); White Blood Count 5.5 K/mm3 (4.5-10.0)
[2020-12-24 05:43] LABS: Alanine Aminotransferase 15 U/L (4-35); Albumin Level 2.7 g/dL (3.5-5.1); Alkaline Phosphatase 63 U/L (38-126); Anion Gap 3 mmol/L (8-16); Aspartate Amino Transferase 58 U/L (14-36); Bilirubin,Total 0.2 mg/dL (0.2-1.3); Blood Urea Nitrogen 18 mg/dL (7-17); Calcium 7.8 mg/dL (8.4-10.2); Carbon Dioxide 27 mmol/L (22-30); Chloride 111 mmol/L (98-107); Estimated CRCL calculation 41 ml/min; Estimated Glomerular Filt Rate 49; Glucose 82 mg/dL (65-105); Magnesium 1.6 mg/dL (1.6-2.3); Phosphorus 2.5 mg/dL (2.5-4.5); Potassium 3.7 mmol/L (3.4-5.0); Sodium 141 mmol/L (137-145)
[2020-12-24] MEDS: CENTRAL LINE FLUSH 10 ML IV PUSH ×4 (05:55→21:20)
[2020-12-24 06:28] LABS: Thyroid Stimulating Hormone Reflex 0.897 uIU/mL (0.465-4.68)
[2020-12-24 06:35] LABS: Folic Acid 6.7 ng/mL (2.76->20)
[2020-12-24] MEDS: ASPIRIN 81 MG CHEWABLE TABLET PO (08:07)
[2020-12-24] MEDS: FERROUS SULFATE 324 MG TABLET PO (08:07)
[2020-12-24] MEDS: PREGABALIN (*CRX) 50 MG CAPSULE PO ×3 (08:07→16:57)
[2020-12-24] MEDS: BISACODYL 5 MG TABLET EC PO ×2 (08:08→16:57)
[2020-12-24] MEDS: busPIRone HCL 2.5 MG TABLET PO ×3 (08:08→16:57)
[2020-12-24] MEDS: DULoxetine HCL 60 MG CAPSULE.DR PO (08:08)
[2020-12-24] MEDS: ENOXAPARIN 40 MG/0.4 ML SYRINGE SUB-Q (08:08)
[2020-12-24] MEDS: ATORVASTATIN 40 MG TABLET PO (08:08)
[2020-12-24] MEDS: PANTOPRAZOLE 40 MG TABLET PO (08:08)
[2020-12-24] MEDS: busPIRone HCL 5 MG TABLET PO ×3 (08:09→16:57)
[2020-12-24 08:21] LABS: Iron 28 ug/dL (37-170)
[2020-12-24 08:30] LABS: Percent Iron Saturation 14 % (20-50)
[2020-12-24] MEDS: ACETAMINOPHEN 325 MG TABLET 650 MG PO ×2 (09:36→19:22)
--- NOTE | 2020-12-24 11:00 | PCOTNOTE ---
Attempted to see patient twice this am. First attempt, patient was eating. Second attempt, patient was with physical therapy.
[2020-12-24] MEDS: SODIUM CHLORIDE 0.9% IV 1,000 ML 75 ML IV CONT (11:23)
[2020-12-24] MEDS: LORazepam INJ (*CRX) 2 MG/ML VIAL IV PUSH (12:01)
--- NOTE | 2020-12-24 12:07 | WPDINTPN ---
Progress Note: A&P Assessment and Plan (1) Shock: Code(s): R57.9 - Shock, unspecified Status: Acute Assessment and Plan: Patient presented with generalized weakness, was hypotensive in the ER requiring 30 mL/kilogram body weight IV fluids -hypotension was refractory to fluids central line inserted and patient was started on Levophed -Off Levophed for > 36 hrs, CT abdomen and pelvis 12/23: Bilateral inflammatory change adjacent to the descending colon which could reflect colitis - Started on Zosyn on 12/23 (2) Dehydration: Code(s): E86.0 - Dehydration Status: Acute Assessment and Plan: Resolved Patient could also be dehydrated because her creatinine was much elevated from baseline -patient has been adequately fluid-resuscitated and now tolerating p.o. diet (3) Acute kidney injury: Code(s): N17.9 - Acute kidney failure, unspecified Status: Acute Assessment and Plan: Could be related to hypotension, shock, hypovolemia. -patient adequately fluid-resuscitated with improvement in creatinine and urine function -continue to monitor renal function, electrolytes and urine output (4) Chronic pain: Code(s): G89.29 - Other chronic pain Status: Chronic Assessment and Plan: Patient has had multiple back surgeries, has chronic back pain, on a pain pump Additional Plan Nutrition: Tolerating p.o. diet DVT prophylaxis: SCD, lovenox Discussed with patient updated her with her condition and plan of care. I answered all questions Code status: Full code Critical care time spent: 31 minutes This dictation may have been done utilizing a voice recognition system. Attempts have been made to correct errors. However, there may be uncorrected grammatical, spelling, and recognition errors present. Due to a high probability of clinically significant, life threatening deterioration, the patient required my highest level of preparedness to intervene emergently and I personally spent this critical care time directly and personally managing the patient. This critical care time included obtaining a history; examining the patient; pulse oximetry; ordering and review of studies; arranging urgent treatment with development of a management plan; evaluation of patient's response to treatment; frequent reassessment; and discussions with other providers. It was exclusive of separately billable procedures and treating other patients and teaching time. Please see Assessment and Plan section and the rest of the note for further information on patient assessment and treatment Subjective Date/time seen: 12/24/20 12:07 Interval history: Reason for consult: Hypotension, shock, fall, colitis 12/24/20: Pt seen and examined in the ICU, remains off Levophed for > 36 hours. Very good UO, Good PO intake. Complains of headache. On room air with good O2 sats. Patient has been awake, alert. States she is hungry. Denies any chest pain, abdominal pain, nausea vomiting at this time Review of Systems Review of Systems: All systems reviewed & are unremarkable except as noted in HPI and below Exam Const: General: comfortable and no acute distress HENMT: Mouth: Yes moist mucous membranes Eyes: Sclera: sclerae normal Pupils: Equal, round and reactive pupils present Neck: Neck: supple Resp: Effort & Inspection: normal respiratory effort Auscultation: clear to auscultation bilaterally and diminished lung sounds Cardio: Rate: regular rate Rhythm: regular rhythm GI: Inspection: non-distended GI Palp: Yes Soft to palpation and No Tenderness to palpation present (GI) Auscultation: normal bowel sounds : Other: Cedeno catheter in place Urinary Catheter: Urinary Catheter: patent and draining and urine clear Skin: General skin exam: normal color and no rashes or lesions noted Neuro: Cranial nerves: Yes Equal, round and reactive pupils present Other: Patient is awake, alert, oriented x3, follow
--- NOTE | 2020-12-24 13:36 | PM.IMPN ---
Progress Note: A&P Assessment and Plan (1) Shock: Code(s): R57.9 - Shock, unspecified Status: Acute Assessment and Plan: Patient with BP dropping to 71/50 requiring central line placement. Levophed started and patient admitted to the ICU. Consider related to dehydration and/or sepsis and/or narcotics. Levophed able to be weaned off stenotypist hours of 12/23. Okay to move out of ICU. Will need tele. (2) Bacteremia: Code(s): R78.81 - Bacteremia Status: Acute Assessment and Plan: BCx have returned positive with Gram positive cocci in clusters from aerobic bottle only in 1 of 2 bottles. Vanco added. Could explain some of her symptoms. Echo showing no obvious vegetations. Follow up on final culture (3) Altered mental state: Code(s): R41.82 - Altered mental status, unspecified Status: Acute Assessment and Plan: Mental status better overall. Unclear if related to the shock/dehydration and/or from the narcotics. Continue to monitor. (4) Elevated troponin: Code(s): R77.8 - Other specified abnormalities of plasma proteins Status: Acute Assessment and Plan: Troponin peaked at 0.10. She does have chronic chest pain associates with anxiety and feel less likely related to ischemia. Repeat EKGshowing no change. Repeat Trop trending down. Echo showing EF 76% with no wall motion abnormalities, mild-mod MR, mild pulm HTN and moderate TR. Continue ASA. Continue tele. Consider ischemic evaluation before discharge. (5) Colitis: Code(s): K52.9 - Noninfective gastroenteritis and colitis, unspecified Status: Acute Assessment and Plan: CT scan showing possible descending colitis. Suspect this is either a false reading or related to ischemia from the HoTN. WBC normal. Will continue with abx at this time given the HoTN. Monitor. Stool studies if she develops diarrhea. (6) Acute kidney injury: Code(s): N17.9 - Acute kidney failure, unspecified Status: Acute Assessment and Plan: Creatinine is 2.0 on admission. She was treated with IV fluids and Cr better today at 1.1. Suspect related to dehydration/pre-renal. Will stop IV fluid. Avoid any nephrotoxic medications. Continue to monitor (7) Anxiety: Code(s): F41.9 - Anxiety disorder, unspecified Status: Chronic Assessment and Plan: Mode stable but does have anxiety at times. Continue Cymbalta, Buspar and Seroquel. Lorazepam available as needed. Contineu to monitor. (8) Anemia, unspecified: Code(s): D64.9 - Anemia, unspecified Status: Chronic Assessment and Plan: Hgb 11.6 on admission. Has normal Hgb in the past. Macrocytosis noted. B12/folate normal. No signs and symptoms of bleeding at this time. Hgb dropped to 8.6 today. Will continue to monitor. (9) Chronic pain: Code(s): G89.29 - Other chronic pain Status: Chronic Assessment and Plan: Pain appears to be reasonably well controlled. Lyrica resumed. Still has pain pump in place with hip xray showing that tubing may have been displaced. Abd CT showing that pump and tubing appeared to be intact and well positioned. Pain worsening and she is requesting that her oral pain medications be resumed. BP better but will still monitor for now. (10) Essential (primary) hypertension: Code(s): I10 - Essential (primary) hypertension Status: Acute Assessment and Plan: The patient is hypotensive on presentation. As above. Lisinopril, Coreg and Lasix on hold. (11) DVT prophylaxis: Code(s): Z29.9 - Encounter for prophylactic measures, unspecified Status: Acute Assessment and Plan: Lovenox Subjective Date/time seen: 12/24/20 13:36 Interval history: 70yo female with chronic pain syndrome and pain pump in place here for generalized weakness and falls and found to be HoTN. Up t
--- NOTE | 2020-12-24 14:15 | PCOTNOTE ---
Attempted therapy session with patient, but patient declined as she was eating lunch.
--- NOTE | 2020-12-24 21:11 | PC.NURSE ---
This patient, Domonique Gonzales, was received from [ ICU] on 12/24/20 at 2100. Patient/family oriented to unit policies and routines
--- NOTE | 2020-12-24 21:16 | PC.NURSE ---
transferred to [facility] in a wheel chair on room air one assist to bed
[2020-12-24 21:50] LABS: IFOB Positive Control Positive; Immunochemical Fecal Occult Bl Negative (N)
[2020-12-25] VITALS (11 sets, daily range): BP systolic 138–165; BP diastolic 73–90; PULSE 64–79; RESP 16–22; TEMP 35.7–37.1; O2SAT 94–99
[2020-12-25] MEDS: ACETAMINOPHEN 325 MG TABLET 650 MG PO (02:49)
[2020-12-25] MEDS: LORazepam INJ (*CRX) 2 MG/ML VIAL IV PUSH ×2 (04:38→23:30)
[2020-12-25] MEDS: CENTRAL LINE FLUSH 10 ML IV PUSH ×4 (04:40→21:31)
[2020-12-25] MEDS: CENTRAL LINE FLUSH 20 ML IV PUSH (04:40)
[2020-12-25 04:42] LABS: Basophils Absolute Auto 0.1 K/mm3 (0.0-0.1); Basophils Percent Auto 0.9 % (0.2-1.2); Eosinophils Absolute Auto 0.5 K/mm3 (0-0.3); Eosinophils Percent Auto 5.9 % (0-4.4); Hematocrit 28.6 % (37.0-47.0); Hemoglobin 9.5 g/dL (12.0-15.0); Immature Granulocyte Absolute 0.02 K/mm3 (0.00-0.031); Immature Granulocyte Percent A 0.2 % (0-0.5); Lymphocytes Absolute Auto 0.58 K/mm3 (0.9-3.2); Lymphocytes Percent Auto 7.2 % (18.3-44.2); Mean Corpuscular HGB Conc 33.2 g/dl (32-36); Mean Corpuscular Hemoglobin 33.5 pg (26-34); Mean Corpuscular Volume 100.7 fl (80-100); Mean Platelet Volume 9.7 fl (7.4-10.4); Monocytes Absolute Auto 0.5 K/mm3 (0.1-0.6); Monocytes Percent Auto 5.9 % (2.6-8.5); Neutrophils Absolute Auto 6.5 K/mm3 (1.3-6.7); Neutrophils Percent Auto 79.9 % (45.5-73.1); Platelet Count Result 205 k/mm3 (150-375); Red Blood Count 2.84 M/mm3 (4.2-5.4); Red Cell Distribution Width 13.7 % (11.5-14.5); White Blood Count 8.1 K/mm3 (4.5-10.0)
[2020-12-25 04:53] LABS: Alanine Aminotransferase 17 U/L (4-35); Albumin Level 3.4 g/dL (3.5-5.1); Alkaline Phosphatase 73 U/L (38-126); Anion Gap 5 mmol/L (8-16); Aspartate Amino Transferase 56 U/L (14-36); Bilirubin,Total 0.4 mg/dL (0.2-1.3); Blood Urea Nitrogen 13 mg/dL (7-17); CRP 2.5 mg/dL (<1.0); Calcium 8.5 mg/dL (8.4-10.2); Carbon Dioxide 27 mmol/L (22-30); Chloride 106 mmol/L (98-107); Estimated CRCL calculation 45 ml/min; Estimated Glomerular Filt Rate 55; Glucose 96 mg/dL (65-105); Magnesium 1.5 mg/dL (1.6-2.3); Phosphorus 2.1 mg/dL (2.5-4.5); Potassium 3.3 mmol/L (3.4-5.0); Sodium 138 mmol/L (137-145)
[2020-12-25] MEDS: POTASSIUM CHLORIDE 20 MEQ TABLET 40 MEQ PO (07:51)
[2020-12-25] MEDS: DULoxetine HCL 60 MG CAPSULE.DR PO (07:52)
[2020-12-25] MEDS: PANTOPRAZOLE 40 MG TABLET PO (07:53)
[2020-12-25] MEDS: busPIRone HCL 5 MG TABLET PO ×3 (07:53→16:26)
[2020-12-25] MEDS: busPIRone HCL 2.5 MG TABLET PO ×3 (07:56→16:25)
[2020-12-25] MEDS: ASPIRIN 81 MG CHEWABLE TABLET PO (07:56)
[2020-12-25] MEDS: FERROUS SULFATE 324 MG TABLET PO (07:56)
[2020-12-25] MEDS: ENOXAPARIN 40 MG/0.4 ML SYRINGE SUB-Q (07:57)
[2020-12-25] MEDS: ATORVASTATIN 40 MG TABLET PO (07:57)
[2020-12-25] MEDS: BISACODYL 5 MG TABLET EC PO ×2 (07:57→16:26)
[2020-12-25] MEDS: PREGABALIN (*CRX) 50 MG CAPSULE PO ×3 (08:03→16:28)
--- NOTE | 2020-12-25 10:37 | PM.IMPN ---
Progress Note: A&P Assessment and Plan (1) Shock: Code(s): R57.9 - Shock, unspecified Status: Acute Assessment and Plan: Patient with BP dropping to 71/50 requiring central line placement. Levophed started and patient admitted to the ICU. Consider related to dehydration and/or sepsis and/or narcotics. Levophed able to be weaned off early childhood director hours of 12/23. Moved out of ICU on 12/24. Monitor BP closely. (2) Bacteremia: Code(s): R78.81 - Bacteremia Status: Acute Assessment and Plan: BCx have returned positive with Gram positive cocci in clusters from aerobic bottle only in 1 of 2 bottles. Vanco added. Could explain some of her symptoms. Could also be contaminate Echo showing no obvious vegetations. Follow up on final culture (3) Altered mental state: Code(s): R41.82 - Altered mental status, unspecified Status: Acute Assessment and Plan: Mental status better overall. Unclear if related to the shock/dehydration/infection and/or from the narcotics. Continue to monitor. (4) Elevated troponin: Code(s): R77.8 - Other specified abnormalities of plasma proteins Status: Acute Assessment and Plan: Troponin peaked at 0.10 felt related to the HoTN. She does have chronic chest pain that her diet supervisor is aware of. Repeat EKG showing no change. Repeat Trop trending down. Echo showing EF 76% with no wall motion abnormalities, mild-mod MR, mild pulm HTN and moderate TR. Tele showing ?AFib. Continue ASA. Continue tele. Interrogate the PM. Cards consult. Replace Mag and Potassium. (5) Colitis: Code(s): K52.9 - Noninfective gastroenteritis and colitis, unspecified Status: Acute Assessment and Plan: CT scan showing possible descending colitis. Suspect this is either a false reading or related to ischemia from the HoTN. WBC normal. Will continue with abx at this time given the HoTN and positive BCx. Monitor. Stool studies if she develops diarrhea. (6) Acute kidney injury: Code(s): N17.9 - Acute kidney failure, unspecified Status: Acute Assessment and Plan: Creatinine is 2.0 on admission. She was treated with IV fluids and Cr better today at 1.0. Suspect related to dehydration/pre-renal. IV fluids stopped. Avoid any nephrotoxic medications. Continue to monitor (7) Depression with anxiety: Code(s): F41.8 - Other specified anxiety disorders Status: Acute Assessment and Plan: Mode stable but still anxious. Continue Cymbalta, Buspar. Lorazepam available as needed. Seroquel started but has since been stopped. Continue to monitor. Resume Seroquel. (8) Anemia, unspecified: Code(s): D64.9 - Anemia, unspecified Status: Chronic Assessment and Plan: Hgb 11.6 on admission. Has normal Hgb in the past. Macrocytosis noted. B12/folate normal. No signs and symptoms of bleeding at this time. Hgb dropped to 8.6 yesterday but better now at 9.5. Will continue to monitor. (9) Chronic pain: Code(s): G89.29 - Other chronic pain Status: Chronic Assessment and Plan: Pain becoming worse overnight. Lyrica resumed. Still has pain pump in place with hip xray showing that tubing may have been displaced. Abd CT showing that pump and tubing appeared to be intact and well positioned. Pt is requesting that her oral pain medications be resumed. BP better so will add back prn meds. Add back slowly. Will need to have home meds clarified as well (10) Essential (primary) hypertension: Code(s): I10 - Essential (primary) hypertension Status: Acute Assessment and Plan: The patient is hypotensive on presentation. As above. Lisinopril, Coreg and Lasix remain on hold. (11) DVT prophylaxis: Code(s): Z29.9 - Encounter for prophylactic measures, unspecified Status: Acute Assessment and Plan: Lovenox
[2020-12-25] MEDS: MAGNESIUM SULF 2 GM/WATER 50ML 2 GM/50 ML BAG IVPB (11:43)
--- NOTE | 2020-12-25 11:59 | PC.NURSE ---
Call to Dr. Jacobsen to request current medication prescriptions.
[2020-12-25] MEDS: DICLOFENAC SOD 75 MG TABLET.EC PO ×2 (12:55→16:26)
[2020-12-25] MEDS: CYCLOBENZAPRINE HCL 10 MG TABLET PO ×2 (12:55→16:26)
--- NOTE | 2020-12-25 13:09 | PM.CNCAR ---
Assessment and Plan Assessment and plan (1) Atrial fibrillation, transient: Code(s): I48.91 - Unspecified atrial fibrillation Status: Acute Assessment and Plan: Questionable atrial fibrillation noted on telemetry this morning. It does look like there were two periods of time where the patient was in Afib with RVR. It does appear that she began pacing and regained sinus rhythm. Currently, remains is in normal sinus rhythm. Upon telemetry review throughout the day she has not sustained any more episodes of possible AFib or arrhythmias of any sort. She does have some frequent PVCs. Pacemaker internal rotation complaint. She does have a dual-chamber pacemaker/ICD. pacemaker mode is DDDR with VVI backup at 60. settings for ventricular arrhythmias are as follows: 190 beats per minute, 170 beats per minute for ventricular fibrillation and ventricular tachycardia respectively. For bradycardia shows a lower rate limit of 60, maximum tracking rate of 120. She has not had any ventricular episodes since her last reset. She has less than 1% of atrial arrhythmias in the last year on her device interrogation. In sinus rhythm now. It appears that her pacemaker is functioning properly and mediated her atrial arrhythmia noted on telemetry today. I do not have any cardiac recommendations for her at this time. (2) History of implantable cardioverter-defibrillator (ICD) placement: Code(s): Z95.810 - Presence of automatic (implantable) cardiac defibrillator Status: Acute Assessment and Plan: See above. When she is discharged from the hospital she certainly needs to follow up with her sales development executive. Is unable to identify who follows her for her device care. Additional Plan I saw this patient at the request of the hospitalist in consultation for possible atrial fibrillation. she did have 2 brief episodes of atrial fibrillation on telemetry this morning. She is in sinus rhythm now. It appears that her pacemaker is functioning properly and mediated her atrial arrhythmia noted on telemetry today. I do not have any cardiac recommendations for her at this time. We will sign off. Thank you for the consultation. We appreciate the opportunity to participate in the care of this patient. Please do not hesitate to contact us if you require assistance with the care of this patient in the future. MANE Trejo- History of Present Illness History of Present Illness Consult date/time: 12/25/20 13:09 Cardiology consultation for questionable AFib noted on telemetry. This is a 70-year-old patient with a past medical history of chronic pain with a pain pump, cervical fusion syndrome, hyperlipidemia, anxiety, permanent pacemaker. She presented to the emergency department following a fall. She tells me that the reason that she was admitted to the hospital with was because she had low blood pressure. She seems a bit confused and very drowsy, occasionally falling asleep during this interview. History is somewhat difficult to obtain. Upon questioning she does state that she has a history of a permanent pacemaker. She states that she received a permanent pacemaker following 3 episodes of what she describes as her heart just stopping. She is unable to tell me exactly when the pacemaker was placed but she states it was a long time ago. She is unsure if it has defibrillator capabilities. She is also unsure the brand of the pacemaker. Aside from having this pacemaker she denies any other cardiac history. However, chart review revealed that she does have a history of coronary artery disease and had a CABG x2 in 2013. I was unable to find who follows her for her pacemaker care. She denies any chest pain, palpitations, shortness of breath. Reason For Visit: martha/hypotension Review of Systems Constitutional: Constitutional: Reports body ache(s) and Reports fatigue Eyes: Eyes: Denies blurry vision ENT:
[2020-12-25] MEDS: HYDROcodone/acetaminophen (*CRX) 5-325 MG TABLET 1 TAB PO ×2 (14:04→21:31)
--- NOTE | 2020-12-25 15:52 | PC.NURSE ---
On 12/25/20, the student, [Mone Sheppard ], provided care and completed [facility] documentation on this patient. I have reviewed the student's documentation and agree with the findings.
--- NOTE | 2020-12-25 15:53 | PC.NURSE ---
On 12/25/20, the student, [ Nu Gilmore], provided care and completed [facility] documentation on this patient. I have reviewed the student's documentation and agree with the findings.
[2020-12-25] MEDS: QUEtiapine FUMARATE 100 MG TABLET PO (16:27)
[2020-12-25] MEDS: QUEtiapine FUMARATE XR 200 MG TAB.ER.24H PO (21:31)
[2020-12-26] VITALS (13 sets, daily range): BP systolic 138–157; BP diastolic 75–94; PULSE 60–89; RESP 14–18; TEMP 36.3–36.6; O2SAT 95–97
[2020-12-26] MEDS: HYDROcodone/acetaminophen (*CRX) 5-325 MG TABLET 1 TAB PO ×3 (05:13→18:36)
[2020-12-26] MEDS: CENTRAL LINE FLUSH 10 ML IV PUSH ×4 (05:17→21:35)
[2020-12-26] MEDS: CENTRAL LINE FLUSH 20 ML IV PUSH (05:17)
[2020-12-26 05:42] LABS: Hematocrit 31.5 % (37.0-47.0); Hemoglobin 10.6 g/dL (12.0-15.0); Mean Corpuscular HGB Conc 33.7 g/dl (32-36); Mean Corpuscular Hemoglobin 33.4 pg (26-34); Mean Corpuscular Volume 99.4 fl (80-100); Mean Platelet Volume 10.4 fl (7.4-10.4); Platelet Count Result 252 k/mm3 (150-375); Red Blood Count 3.17 M/mm3 (4.2-5.4); Red Cell Distribution Width 13.6 % (11.5-14.5); White Blood Count 5.7 K/mm3 (4.5-10.0)
[2020-12-26 05:57] LABS: Anion Gap 3 mmol/L (8-16); Blood Urea Nitrogen 12 mg/dL (7-17); Calcium 8.8 mg/dL (8.4-10.2); Carbon Dioxide 32 mmol/L (22-30); Chloride 105 mmol/L (98-107); Estimated CRCL calculation 41 ml/min; Estimated Glomerular Filt Rate 49; Glucose 89 mg/dL (65-105); Potassium 3.6 mmol/L (3.4-5.0); Sodium 140 mmol/L (137-145)
[2020-12-26] MEDS: ATORVASTATIN 40 MG TABLET PO (09:00)
[2020-12-26] MEDS: DULoxetine HCL 60 MG CAPSULE.DR PO (09:00)
[2020-12-26] MEDS: PREGABALIN (*CRX) 50 MG CAPSULE PO ×3 (09:00→16:12)
[2020-12-26] MEDS: FERROUS SULFATE 324 MG TABLET PO (09:00)
[2020-12-26] MEDS: CYCLOBENZAPRINE HCL 10 MG TABLET PO ×3 (09:00→16:12)
[2020-12-26] MEDS: ASPIRIN 81 MG CHEWABLE TABLET PO (09:00)
[2020-12-26] MEDS: BISACODYL 5 MG TABLET EC PO ×2 (09:00→16:12)
[2020-12-26] MEDS: busPIRone HCL 2.5 MG TABLET PO ×3 (09:00→16:12)
[2020-12-26] MEDS: DICLOFENAC SOD 75 MG TABLET.EC PO ×2 (09:01→16:12)
[2020-12-26] MEDS: QUEtiapine FUMARATE 100 MG TABLET PO ×2 (09:01→16:15)
[2020-12-26] MEDS: ENOXAPARIN 40 MG/0.4 ML SYRINGE SUB-Q (09:01)
[2020-12-26] MEDS: busPIRone HCL 5 MG TABLET PO ×3 (09:01→16:12)
[2020-12-26] MEDS: PANTOPRAZOLE 40 MG TABLET PO (09:01)
--- NOTE | 2020-12-26 10:51 | PM.IMPN ---
Progress Note: A&P Assessment and Plan (1) Shock: Code(s): R57.9 - Shock, unspecified Status: Acute Assessment and Plan: Patient with BP dropping to 71/50 requiring central line placement. Levophed started and patient admitted to the ICU. Consider related to dehydration and/or sepsis and/or narcotics. Levophed able to be weaned off medical physiologist hours of 12/23. Moved out of ICU on 12/24. BP now robust. (2) Bacteremia: Code(s): R78.81 - Bacteremia Status: Acute Assessment and Plan: BCx have returned positive with Gram positive cocci in clusters from aerobic bottle only in 1 of 2 bottles. Vanco added. Could explain some of her symptoms. Could also be contaminate Echo showing no obvious vegetations. 12/26 only results still 1/2 with GPC in clusters. Follow up on final culture (3) Altered mental state: Code(s): R41.82 - Altered mental status, unspecified Status: Acute Assessment and Plan: Mental status better overall. Unclear if related to the shock/dehydration/infection and/or from the narcotics. (4) Elevated troponin: Code(s): R77.8 - Other specified abnormalities of plasma proteins Status: Acute Assessment and Plan: Troponin peaked at 0.10 felt related to the HoTN. 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 Repeat EKG showing no change. Repeat Trop trending down. Echo showing EF 76% with no wall motion abnormalities, mild-mod MR, mild pulm HTN and moderate TR. Tele showing ?AFib. Continue ASA. Continue tele. Interrogate the PM. Cards consult noted. Mag and Potassium replaced (5) Colitis: Code(s): K52.9 - Noninfective gastroenteritis and colitis, unspecified Status: Acute Assessment and Plan: CT scan showing possible descending colitis. Suspect this is either a false reading or related to ischemia from the HoTN. WBC normal. Will continue with abx at this time given the HoTN and positive BCx. Monitor. Stool studies if she develops diarrhea. (6) Acute kidney injury: Code(s): N17.9 - Acute kidney failure, unspecified Status: Acute Assessment and Plan: Creatinine is 2.0 on admission. She was treated with IV fluids and Cr better today at 1.0. Suspect related to dehydration/pre-renal. IV fluids stopped. Avoid any nephrotoxic medications. Continue to monitor (7) Depression with anxiety: Code(s): F41.8 - Other specified anxiety disorders Status: Acute Assessment and Plan: Continue home regimen. Reviewed with charge nurse and son. (8) Anemia, unspecified: Code(s): D64.9 - Anemia, unspecified Status: Chronic Assessment and Plan: Hgb 11.6 on admission. Has normal Hgb in the past. Macrocytosis noted. B12/folate normal. No signs and symptoms of bleeding at this time. 12/26 10.6 (9) Chronic pain: Code(s): G89.29 - Other chronic pain Status: Chronic Assessment and Plan: Continue home regimen (10) Essential (primary) hypertension: Code(s): I10 - Essential (primary) hypertension Status: Acute Assessment and Plan: 12/26 BP robust Lisinopril, Coreg and Lasix remain on hold Continue to monitor (11) DVT prophylaxis: Code(s): Z29.9 - Encounter for prophylactic measures, unspecified Status: Acute Assessment and Plan: Lovenox Subjective Date/time seen: 12/26/20 10:51 Interval history: 70yo female with chronic pain syndrome and pain pump in place here for generalized weakness and falls and found to be hypotensive. Blood cultre / with GPC in clusters. Zosyn 12/23, Vanc 12/24. 12/26: Chronic back pain. No other c/o. Tolerated AM meal and OT. Review of Systems Review of Systems: All systems reviewed & are unremarkable except as noted in HPI and below Exam Narrative: Exam Narrative: AF 98.0 156/88 77 16 94% RA Gen - Alert. NAD.
[2020-12-26] MEDS: carvediloL 6.25 MG TABLET PO ×2 (11:48→21:33)
[2020-12-26] MEDS: lisinopriL 5 MG TABLET PO (11:48)
[2020-12-26] MEDS: LORazepam INJ (*CRX) 2 MG/ML VIAL IV PUSH (21:33)
[2020-12-26] MEDS: QUEtiapine FUMARATE XR 200 MG TAB.ER.24H PO (21:33)
[2020-12-27] VITALS (11 sets, daily range): BP systolic 153–174; BP diastolic 76–87; PULSE 60–112; RESP 18; TEMP 36.2–36.8; O2SAT 94–96
[2020-12-27] MEDS: HYDROcodone/acetaminophen (*CRX) 5-325 MG TABLET 1 TAB PO ×5 (00:37→22:29)
[2020-12-27] MEDS: CENTRAL LINE FLUSH 10 ML IV PUSH ×4 (06:15→22:32)
[2020-12-27] MEDS: PREGABALIN (*CRX) 50 MG CAPSULE PO ×3 (08:18→16:33)
[2020-12-27] MEDS: lisinopriL 5 MG TABLET PO (08:18)
[2020-12-27] MEDS: CYCLOBENZAPRINE HCL 10 MG TABLET PO ×3 (08:18→16:32)
[2020-12-27] MEDS: DICLOFENAC SOD 75 MG TABLET.EC PO ×2 (08:19→16:33)
[2020-12-27] MEDS: carvediloL 6.25 MG TABLET PO ×2 (08:19→20:58)
[2020-12-27] MEDS: QUEtiapine FUMARATE 100 MG TABLET PO ×2 (08:19→16:33)
[2020-12-27] MEDS: DULoxetine HCL 60 MG CAPSULE.DR PO (08:19)
[2020-12-27] MEDS: ATORVASTATIN 40 MG TABLET PO (08:19)
[2020-12-27] MEDS: BISACODYL 5 MG TABLET EC PO ×2 (08:19→16:33)
[2020-12-27] MEDS: busPIRone HCL 5 MG TABLET PO ×3 (08:19→16:33)
[2020-12-27] MEDS: ASPIRIN 81 MG CHEWABLE TABLET PO (08:19)
[2020-12-27] MEDS: PANTOPRAZOLE 40 MG TABLET PO (08:19)
[2020-12-27] MEDS: busPIRone HCL 2.5 MG TABLET PO ×3 (08:19→16:32)
[2020-12-27] MEDS: FERROUS SULFATE 324 MG TABLET PO (08:19)
[2020-12-27] MEDS: ENOXAPARIN 40 MG/0.4 ML SYRINGE SUB-Q (08:20)
--- NOTE | 2020-12-27 12:59 | PM.IMPN ---
Progress Note: A&P Assessment and Plan (1) Shock: Code(s): R57.9 - Shock, unspecified Status: Acute Assessment and Plan: Patient with BP dropping to 71/50 requiring central line placement. Levophed started and patient admitted to the ICU. Consider related to dehydration and/or sepsis and/or narcotics. Levophed able to be weaned off work manager hours of 12/23. Moved out of ICU on 12/24. BP now robust. (2) Bacteremia: Code(s): R78.81 - Bacteremia Status: Acute Assessment and Plan: BCx have returned positive with Gram positive cocci in clusters from aerobic bottle only in 1 of 2 bottles. Vanco added. Could explain some of her symptoms. Could also be contaminate Echo showing no obvious vegetations. 12/27 only results still /2 with GPC in clusters. Follow up on final culture (3) Altered mental state: Code(s): R41.82 - Altered mental status, unspecified Status: Acute Assessment and Plan: Mental status better overall. Unclear if related to the shock/dehydration/infection and/or from the narcotics. (4) Elevated troponin: Code(s): R77.8 - Other specified abnormalities of plasma proteins Status: Acute Assessment and Plan: Troponin peaked at 0.10 felt related to the HoTN. She does have chronic chest pain that her order runner is aware of. Repeat EKG showing no change. Repeat Trop trending down. Echo showing EF 76% with no wall motion abnormalities, mild-mod MR, mild pulm HTN and moderate TR. Tele showing ?AFib. Continue ASA. Continue tele. Interrogate the PM. Cards consult noted. Mag and Potassium replaced (5) Colitis: Code(s): K52.9 - Noninfective gastroenteritis and colitis, unspecified Status: Acute Assessment and Plan: CT scan showing possible descending colitis. Suspect this is either a false reading or related to ischemia from the HoTN. WBC normal. Will continue with abx at this time given the HoTN and positive BCx. Monitor. Stool studies if she develops diarrhea. (6) Acute kidney injury: Code(s): N17.9 - Acute kidney failure, unspecified Status: Acute Assessment and Plan: Creatinine is 2.0 on admission. She was treated with IV fluids and Cr better today at 1.0. Suspect related to dehydration/pre-renal. IV fluids stopped. Avoid any nephrotoxic medications. Continue to monitor (7) Depression with anxiety: Code(s): F41.8 - Other specified anxiety disorders Status: Acute Assessment and Plan: Continue home regimen. Reviewed with charge nurse and son. (8) Anemia, unspecified: Code(s): D64.9 - Anemia, unspecified Status: Chronic Assessment and Plan: Hgb 11.6 on admission. Has normal Hgb in the past. Macrocytosis noted. B12/folate normal. No signs and symptoms of bleeding at this time. 12/26 10.6 (9) Chronic pain: Code(s): G89.29 - Other chronic pain Status: Chronic Assessment and Plan: Continue home regimen (10) Essential (primary) hypertension: Code(s): I10 - Essential (primary) hypertension Status: Acute Assessment and Plan: 12/26 BP robust Lisinopril, Coreg and Lasix remain on hold Continue to monitor (11) DVT prophylaxis: Code(s): Z29.9 - Encounter for prophylactic measures, unspecified Status: Acute Assessment and Plan: Lovenox Subjective Date/time seen: 12/27/20 12:59 Interval history: 70yo female with chronic pain syndrome and pain pump in place here for generalized weakness and falls and found to be hypotensive. Blood cultre 1/2 with GPC in clusters. Zosyn 12/23, Vanc 12/24. 12/27: Chronic back pain. Chronic left chest wall pain with pressure to the area or use of the left arm. No other c/o. Eating well. Some RIBEIRO with ambulation, otherwise tolerated PT/OT well. Review of Systems Review of Systems: All systems reviewed & are unremarkabl
[2020-12-27] MEDS: CENTRAL LINE FLUSH 20 ML IV PUSH (13:54)
[2020-12-27 14:28] LABS: Vancomycin Trough 9.5 ug/mL (10.0-20.0)
[2020-12-27] MEDS: LORazepam INJ (*CRX) 2 MG/ML VIAL IV PUSH (18:42)
[2020-12-27] MEDS: QUEtiapine FUMARATE XR 200 MG TAB.ER.24H PO (20:58)
[2020-12-28] VITALS (11 sets, daily range): BP systolic 130–166; BP diastolic 65–89; PULSE 60–98; RESP 16; TEMP 36.2–36.6; O2SAT 93–97
[2020-12-28] MEDS: LORazepam INJ (*CRX) 2 MG/ML VIAL IV PUSH ×2 (02:08→20:09)
[2020-12-28] MEDS: HYDROcodone/acetaminophen (*CRX) 5-325 MG TABLET 1 TAB PO ×2 (05:27→10:41)
[2020-12-28] MEDS: CENTRAL LINE FLUSH 10 ML IV PUSH ×4 (05:27→20:10)
[2020-12-28] MEDS: CENTRAL LINE FLUSH 20 ML IV PUSH (05:27)
[2020-12-28 05:52] LABS: Hematocrit 28.8 % (37.0-47.0); Hemoglobin 9.7 g/dL (12.0-15.0); Mean Corpuscular HGB Conc 33.7 g/dl (32-36); Mean Platelet Volume 10.4 fl (7.4-10.4); Platelet Count Result 240 k/mm3 (150-375); Red Blood Count 2.94 M/mm3 (4.2-5.4); Red Cell Distribution Width 13.3 % (11.5-14.5); White Blood Count 5.5 K/mm3 (4.5-10.0)
[2020-12-28 06:03] LABS: Anion Gap 7 mmol/L (8-16); Blood Urea Nitrogen 7 mg/dL (7-17); Calcium 8.8 mg/dL (8.4-10.2); Carbon Dioxide 30 mmol/L (22-30); Chloride 98 mmol/L (98-107); Estimated CRCL calculation 45 ml/min; Estimated Glomerular Filt Rate 55; Glucose 89 mg/dL (65-105); Potassium 2.9 mmol/L (3.4-5.0); Sodium 135 mmol/L (137-145)
[2020-12-28] MEDS: POTASSIUM CHLORIDE 20 MEQ TABLET 40 MEQ PO (09:19)
[2020-12-28] MEDS: ASPIRIN 81 MG CHEWABLE TABLET PO (09:20)
[2020-12-28] MEDS: BISACODYL 5 MG TABLET EC PO ×2 (09:20→17:31)
[2020-12-28] MEDS: PANTOPRAZOLE 40 MG TABLET PO (09:20)
[2020-12-28] MEDS: DULoxetine HCL 60 MG CAPSULE.DR PO (09:20)
[2020-12-28] MEDS: CYCLOBENZAPRINE HCL 10 MG TABLET PO ×3 (09:20→17:30)
[2020-12-28] MEDS: lisinopriL 5 MG TABLET PO (09:20)
[2020-12-28] MEDS: busPIRone HCL 5 MG TABLET PO ×3 (09:20→17:31)
[2020-12-28] MEDS: FERROUS SULFATE 324 MG TABLET PO (09:21)
[2020-12-28] MEDS: ATORVASTATIN 40 MG TABLET PO (09:21)
[2020-12-28] MEDS: busPIRone HCL 2.5 MG TABLET PO ×3 (09:21→17:31)
[2020-12-28] MEDS: DICLOFENAC SOD 75 MG TABLET.EC PO ×2 (09:21→17:32)
[2020-12-28] MEDS: QUEtiapine FUMARATE 100 MG TABLET PO ×2 (09:22→17:31)
[2020-12-28] MEDS: ENOXAPARIN 40 MG/0.4 ML SYRINGE SUB-Q (09:22)
[2020-12-28] MEDS: carvediloL 6.25 MG TABLET PO ×2 (09:22→20:10)
[2020-12-28] MEDS: PREGABALIN (*CRX) 50 MG CAPSULE PO ×3 (09:24→17:30)
--- NOTE | 2020-12-28 14:05 | PM.IMPN ---
Progress Note: A&P Assessment and Plan (1) Shock: Code(s): R57.9 - Shock, unspecified Status: Acute Assessment and Plan: Patient with BP dropping to 71/50 requiring central line placement. Levophed started and patient admitted to the ICU. Consider related to dehydration and/or sepsis and/or narcotics. Levophed able to be weaned off indexer hours of 12/23. Moved out of ICU on 12/24. BP now robust. 12/28/20 14:05 patient is 70-year-old female with history multiple spinal surgeries on chronic pain medication and pain pump however patient is not receiving any pain medication from the Pump, presented emergency depart with complaint of weakness status post fall and patient was found to have hypotension, patient was started on IV fluid, central line was placed, started on Levophed, since then patient blood pressure has improved and patient is now out of ICU, most likely hypotension secondary to dehydration as well as chronic pain medications, there is also concern for sepsis as 1 of the blood culture bottle is growing Gram-positive cocci in clusters the patient is being treated Zosyn and vancomycin, patient blood pressure now close to normal, patient still complains of pain which is not controlled as patient had been taking morphine 30 mg twice a day and for breakthrough pain patient was taking [place] as needed every 6 hours currently patient is only receiving [place] 5 mg every 6 hours as needed and no morphine, patient is also receiving cyclobenzaprine and Cymbalta, diclofenac, will continue to monitor may start patient on morphine lower dose possibly tomorrow and reassess. (2) Bacteremia: Code(s): R78.81 - Bacteremia Status: Acute Assessment and Plan: BCx have returned positive with Gram positive cocci in clusters from aerobic bottle only in 1 of 2 bottles. Vanco added. Could explain some of her symptoms. Could also be contaminate Echo showing no obvious vegetations. 12/27 only results still 1/2 with GPC in clusters. Follow up on final culture (3) Altered mental state: Code(s): R41.82 - Altered mental status, unspecified Status: Acute Assessment and Plan: Mental status better overall. Unclear if related to the shock/dehydration/infection and/or from the narcotics. (4) Elevated troponin: Code(s): R77.8 - Other specified abnormalities of plasma proteins Status: Acute Assessment and Plan: Troponin peaked at 0.10 felt related to the HoTN. 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 Repeat EKG showing no change. Repeat Trop trending down. Echo showing EF 76% with no wall motion abnormalities, mild-mod MR, mild pulm HTN and moderate TR. Tele showing ?AFib. Continue ASA. Continue tele. Interrogate the PM. Cards consult noted. Mag and Potassium replaced (5) Colitis: Code(s): K52.9 - Noninfective gastroenteritis and colitis, unspecified Status: Acute Assessment and Plan: CT scan showing possible descending colitis. Suspect this is either a false reading or related to ischemia from the HoTN. WBC normal. Will continue with abx at this time given the HoTN and positive BCx. Monitor. Stool studies if she develops diarrhea. (6) Acute kidney injury: Code(s): N17.9 - Acute kidney failure, unspecified Status: Acute Assessment and Plan: Creatinine is 2.0 on admission. She was treated with IV fluids and Cr better today at 1.0. Suspect related to dehydration/pre-renal. IV fluids stopped. Avoid any nephrotoxic medications. Continue to monitor (7) Depression with anxiety: Code(s): F41.8 - Other specified anxiety disorders Status: Acute Assessment and Plan: Continue home regimen. Reviewed with charge nurse and son. (8) Anemia, unspecified: Code(s): D64.9 - Anemia, unspecified Status: Chronic Assessment and Plan: Hgb 11.6 on admission. Has norm
[2020-12-28 15:04] LABS: Anion Gap 6 mmol/L (8-16); Blood Urea Nitrogen 6 mg/dL (7-17); Calcium 8.9 mg/dL (8.4-10.2); Carbon Dioxide 27 mmol/L (22-30); Chloride 102 mmol/L (98-107); Estimated CRCL calculation 49 ml/min; Estimated Glomerular Filt Rate > 60; Glucose 115 mg/dL (65-105); Magnesium 1.9 mg/dL (1.6-2.3); Sodium 135 mmol/L (137-145)
[2020-12-28] MEDS: HYDROcodone/acetaminophen (*CRX) 7.5-325 MG TABLET 1 TAB PO ×2 (15:13→21:42)
[2020-12-28] MEDS: QUEtiapine FUMARATE XR 200 MG TAB.ER.24H PO (20:09)
[2020-12-29] VITALS (9 sets, daily range): BP systolic 147–166; BP diastolic 62–86; PULSE 60–76; RESP 16; TEMP 35.9–36.6; O2SAT 93–98
[2020-12-29] MEDS: HYDROcodone/acetaminophen (*CRX) 7.5-325 MG TABLET 1 TAB PO ×4 (03:41→22:11)
[2020-12-29] MEDS: CENTRAL LINE FLUSH 20 ML IV PUSH (05:26)
[2020-12-29] MEDS: CENTRAL LINE FLUSH 10 ML IV PUSH ×2 (05:26→12:20)
[2020-12-29 05:41] LABS: Hematocrit 27.1 % (37.0-47.0); Hemoglobin 9.2 g/dL (12.0-15.0); Mean Corpuscular HGB Conc 33.9 g/dl (32-36); Mean Corpuscular Hemoglobin 33.7 pg (26-34); Mean Corpuscular Volume 99.3 fl (80-100); Mean Platelet Volume 10.1 fl (7.4-10.4); Platelet Count Result 221 k/mm3 (150-375); Red Blood Count 2.73 M/mm3 (4.2-5.4); Red Cell Distribution Width 13.6 % (11.5-14.5); White Blood Count 4.7 K/mm3 (4.5-10.0)
[2020-12-29 05:52] LABS: Anion Gap 7 mmol/L (8-16); Blood Urea Nitrogen 7 mg/dL (7-17); Calcium 8.4 mg/dL (8.4-10.2); Carbon Dioxide 28 mmol/L (22-30); Chloride 99 mmol/L (98-107); Estimated CRCL calculation 45 ml/min; Estimated Glomerular Filt Rate 55; Glucose 114 mg/dL (65-105); Magnesium 1.8 mg/dL (1.6-2.3); Potassium 3.2 mmol/L (3.4-5.0); Sodium 134 mmol/L (137-145)
[2020-12-29] MEDS: PREGABALIN (*CRX) 50 MG CAPSULE PO ×3 (08:24→16:04)
[2020-12-29] MEDS: MAGNESIUM SULF 2 GM/WATER 50ML 2 GM/50 ML BAG IVPB (08:24)
[2020-12-29] MEDS: POTASSIUM CHLORIDE 20 MEQ TABLET 40 MEQ PO (08:24)
[2020-12-29] MEDS: carvediloL 6.25 MG TABLET PO ×2 (08:25→20:26)
[2020-12-29] MEDS: ATORVASTATIN 40 MG TABLET PO (08:25)
[2020-12-29] MEDS: QUEtiapine FUMARATE 100 MG TABLET PO ×2 (08:25→16:06)
[2020-12-29] MEDS: ENOXAPARIN 40 MG/0.4 ML SYRINGE SUB-Q (08:25)
[2020-12-29] MEDS: FERROUS SULFATE 324 MG TABLET PO (08:25)
[2020-12-29] MEDS: PANTOPRAZOLE 40 MG TABLET PO (08:25)
[2020-12-29] MEDS: busPIRone HCL 5 MG TABLET PO ×3 (08:25→16:05)
[2020-12-29] MEDS: CYCLOBENZAPRINE HCL 10 MG TABLET PO ×3 (08:25→16:05)
[2020-12-29] MEDS: BISACODYL 5 MG TABLET EC PO ×2 (08:26→16:05)
[2020-12-29] MEDS: ASPIRIN 81 MG CHEWABLE TABLET PO (08:26)
[2020-12-29] MEDS: DULoxetine HCL 60 MG CAPSULE.DR PO (08:26)
[2020-12-29] MEDS: lisinopriL 5 MG TABLET PO (08:27)
[2020-12-29] MEDS: busPIRone HCL 2.5 MG TABLET PO ×3 (08:27→16:05)
[2020-12-29] MEDS: hydrOXYzine HCL 10 MG TABLET PO (08:27)
[2020-12-29] MEDS: DICLOFENAC SOD 75 MG TABLET.EC PO ×2 (08:34→16:06)
--- NOTE | 2020-12-29 12:09 | PCNWS ---
Weekly nutritional screen. Patient is tolerating current diet with adequate intake. No weight loss reported. No nutritional needs at this time.
--- NOTE | 2020-12-29 12:14 | PCNSR ---
On 12/29/20, the student,Birgit Plascencia, provided care and completed [facility] documentation on this patient. I have reviewed the student's documentation and agree with the findings.
--- NOTE | 2020-12-29 14:20 | PM.IMPN ---
Progress Note: A&P Assessment and Plan (1) Shock: Code(s): R57.9 - Shock, unspecified Status: Acute Assessment and Plan: Patient with BP dropping to 71/50 requiring central line placement. Levophed started and patient admitted to the ICU. Consider related to dehydration and/or sepsis and/or narcotics. Levophed able to be weaned off poultry tender hours of 12/23. Moved out of ICU on 12/24. BP now robust and her anti-HTN medications able to added back. (2) Bacteremia: Code(s): R78.81 - Bacteremia Status: Acute Assessment and Plan: BCx have returned positive with Gram positive cocci in clusters from aerobic bottle only in 1 of 2 bottles. Vanco added 12/24 to Zosyn 12/23. Could explain some of her symptoms. Could also be contaminate Echo showing no obvious vegetations. Called lab and the BCx had to be sent out (prelim result was Dolosigranulum pigrum). Remove central line. (3) Altered mental state: Code(s): R41.82 - Altered mental status, unspecified Status: Acute Assessment and Plan: Mental status better overall. Unclear if related to the shock/dehydration/infection and/or from the narcotics. (4) Elevated troponin: Code(s): R77.8 - Other specified abnormalities of plasma proteins Status: Acute Assessment and Plan: Troponin peaked at 0.10 felt related to the HoTN. 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 Repeat EKG showing no change. Repeat Trop trending down. Echo showing EF 76% with no wall motion abnormalities, mild-mod MR, mild pulm HTN and moderate TR. Tele showing AFib and Cardiology did not have any further recommendations. Continue ASA. Okay to stop tele. (5) Colitis: Code(s): K52.9 - Noninfective gastroenteritis and colitis, unspecified Status: Acute Assessment and Plan: CT scan showing possible descending colitis. Suspect this is either a false reading or related to ischemia from the HoTN. WBC normal. Will continue with abx at this time given the HoTN and positive BCx. Monitor. (6) Acute kidney injury: Code(s): N17.9 - Acute kidney failure, unspecified Status: Acute Assessment and Plan: Creatinine is 2.0 on admission. She was treated with IV fluids and Cr better today at 1.0. Suspect related to dehydration/pre-renal. Avoid any nephrotoxic medications. Continue to monitor (7) Depression with anxiety: Code(s): F41.8 - Other specified anxiety disorders Status: Acute Assessment and Plan: Continue home regimen. (8) Anemia, unspecified: Code(s): D64.9 - Anemia, unspecified Status: Chronic Assessment and Plan: Hgb 11.6 on admission. Has normal Hgb in the past. Macrocytosis noted. B12/folate normal. No signs and symptoms of bleeding at this time. Hgb stable in the 9-10 range now (9) Chronic pain: Code(s): G89.29 - Other chronic pain Status: Chronic Assessment and Plan: Continue a majority of her home regiment. (10) Essential (primary) hypertension: Code(s): I10 - Essential (primary) hypertension Status: Acute Assessment and Plan: BP robust. Lisinopril, Coreg resumed. Lasix remains on hold. Continue to monitor (11) DVT prophylaxis: Code(s): Z29.9 - Encounter for prophylactic measures, unspecified Status: Acute Assessment and Plan: Lovenox Subjective Date/time seen: 12/29/20 14:20 Interval history: 70yo female with chronic pain syndrome and pain pump in place here for generalized weakness and falls and found to be hypotensive. Blood cultre 1/2 with GPC in clusters. Zosyn 12/23, Vanc 12/24. Feels well. No CP or SOB. She is up walking to the BR. Complains of diffuse pain Exam Narrative: Exam Narrative: AF 97.9 147/62 73 16 93% ra Gen - NARD Chest - CTA bilaterally CV - RRR S1/S2; Tele showing PVCs GI - soft,
[2020-12-29] MEDS: NEOMYCIN/POLYMYXIN/BACITRACIN OINTMENT PACKET 1 PACKET (16:04)
[2020-12-29] MEDS: ACETAMINOPHEN 325 MG TABLET 650 MG PO (19:52)
[2020-12-29] MEDS: LORazepam INJ (*CRX) 2 MG/ML VIAL IV PUSH (19:54)
[2020-12-29 20:23] LABS: Vancomycin Trough 14.6 ug/mL (10.0-20.0)
[2020-12-29] MEDS: QUEtiapine FUMARATE XR 200 MG TAB.ER.24H PO (20:26)
[2020-12-29] MEDS: MIRTAZAPINE 30 MG TABLET PO (20:26)
[2020-12-30] MEDS: HYDROcodone/acetaminophen (*CRX) 7.5-325 MG TABLET 1 TAB PO ×2 (04:21→10:43)
[2020-12-30 05:08] VITALS: BP 146/72; PULSE 77; RESP 16; TEMP 36.8; O2SAT 97
[2020-12-30 05:42] LABS: Hematocrit 28.5 % (37.0-47.0); Hemoglobin 9.5 g/dL (12.0-15.0); Mean Corpuscular HGB Conc 33.3 g/dl (32-36); Mean Corpuscular Hemoglobin 33.2 pg (26-34); Mean Corpuscular Volume 99.7 fl (80-100); Mean Platelet Volume 10.5 fl (7.4-10.4); Platelet Count Result 248 k/mm3 (150-375); Red Blood Count 2.86 M/mm3 (4.2-5.4); Red Cell Distribution Width 13.7 % (11.5-14.5); White Blood Count 4.7 K/mm3 (4.5-10.0)
[2020-12-30 05:56] LABS: Anion Gap 6 mmol/L (8-16); Blood Urea Nitrogen 9 mg/dL (7-17); Calcium 8.6 mg/dL (8.4-10.2); Carbon Dioxide 26 mmol/L (22-30); Chloride 102 mmol/L (98-107); Estimated CRCL calculation 45 ml/min; Estimated Glomerular Filt Rate 55; Glucose 92 mg/dL (65-105); Magnesium 2.2 mg/dL (1.6-2.3); Phosphorus 4.4 mg/dL (2.5-4.5); Potassium 3.8 mmol/L (3.4-5.0); Sodium 134 mmol/L (137-145)
[2020-12-30] MEDS: busPIRone HCL 2.5 MG TABLET PO ×3 (08:37→17:23)
[2020-12-30] MEDS: DULoxetine HCL 60 MG CAPSULE.DR PO (08:37)
[2020-12-30] MEDS: ENOXAPARIN 40 MG/0.4 ML SYRINGE SUB-Q (08:37)
[2020-12-30] MEDS: ATORVASTATIN 40 MG TABLET PO (08:37)
[2020-12-30] MEDS: CHOLECALCIFEROL 1,000 UNITS TABLET 2000 UNITS PO (08:37)
[2020-12-30] MEDS: ASPIRIN 81 MG CHEWABLE TABLET PO (08:37)
[2020-12-30] MEDS: CYCLOBENZAPRINE HCL 10 MG TABLET PO ×3 (08:38→17:23)
[2020-12-30] MEDS: QUEtiapine FUMARATE 100 MG TABLET PO ×2 (08:38→17:23)
[2020-12-30] MEDS: lisinopriL 5 MG TABLET PO (08:38)
[2020-12-30] MEDS: PANTOPRAZOLE 40 MG TABLET PO (08:38)
[2020-12-30] MEDS: PREGABALIN (*CRX) 50 MG CAPSULE PO ×3 (08:38→17:23)
[2020-12-30] MEDS: busPIRone HCL 5 MG TABLET PO ×3 (08:38→17:23)
[2020-12-30 08:39] VITALS: PULSE 80
[2020-12-30] MEDS: FERROUS SULFATE 324 MG TABLET PO (08:39)
[2020-12-30] MEDS: DICLOFENAC SOD 75 MG TABLET.EC PO ×2 (08:39→17:23)
[2020-12-30] MEDS: BISACODYL 5 MG TABLET EC PO ×2 (08:39→17:23)
[2020-12-30] MEDS: carvediloL 6.25 MG TABLET PO (08:39)
[2020-12-30] MEDS: LORazepam INJ (*CRX) 2 MG/ML VIAL IV PUSH (10:01)
--- NOTE | 2020-12-30 12:39 | WPDINFPN2 ---
Progress Note: A&P Assessment and Plan (1) Bacteremia: Code(s): R78.81 - Bacteremia Status: Acute Assessment and Plan: Bacteremia, preliminary ident = a respiratory commensal. Immunocompetent. Analgesic pump and AICD in place REC Repeat BCs now that CVC is out. No antibiotics needed unless still +. Call if Qs Subjective Date/time seen: 12/30/20 12:39 Objective Data Vital Signs Vital Signs: Vital Signs - 24 hr 12/29/20 14:00 12/29/20 20:03 12/29/20 20:26 Temperature 35.9 C L 36.4 C Pulse Rate 66 76 70 Respiratory Rate 16 16 Blood Pressure 166/86 H 147/75 H Pulse Oximetry 98 94 12/30/20 05:08 12/30/20 08:39 Temperature 36.8 C Pulse Rate 77 80 Respiratory Rate 16 Blood Pressure 146/72 H Pulse Oximetry 97 Intake/Output Intake/Output: Intake & Output 12/27/20 12/28/20 12/29/20 12/30/20 23:59 23:59 23:59 23:59 Intake Total 1999 3520 2040 890 Output Total 1675 2850 4950 1900 Balance 325 670 -2910 -1010 Meds/Results Medications: Active Medications Generic Name Dose Route Start Last Admin Trade Name Freq PRN Reason Stop Dose Admin Acetaminophen 650 mg 12/24/20 09:22 12/29/20 19:52 Acetaminophen 325 Mg Tablet PO 650 mg Q6H PRN Administration Mild Pain (1-3) or Fever Hydrocodone Bitart/Acetaminophen 1 tab 12/25/20 11:05 12/28/20 10:41 Hydrocodone/Acetaminophen (*Crx) 5-325 Mg Tablet PO 1 tab Q4-6H PRN Administration Pain RATED 4-6 Hydrocodone Bitart/Acetaminophen 1 tab 12/28/20 14:50 12/30/20 10:43 Hydrocodone/Acetaminophen (*Crx) 7.5-325 Mg Tablet PO 1 tab Q6H PRN Administration Pain Rated 7-10 Aspirin 81 mg 12/23/20 15:50 12/30/20 08:37 Aspirin 81 Mg Chewable Tablet PO 81 mg DAILY@0800 PADMINI Administration Atorvastatin Calcium 40 mg 12/23/20 09:00 12/30/20 08:37 Atorvastatin 40 Mg Tablet PO 40 mg DAILY PADMINI Administration Bisacodyl 5 mg 12/23/20 09:00 12/30/20 08:39 Bisacodyl 5 Mg Tablet Ec PO 5 mg BID PADMINI Administration Buspirone HCl 2.5 mg 12/23/20 17:00 12/30/20 08:37 Buspirone Hcl 2.5 Mg Tablet PO 2.5 mg TID PADMINI Administration Buspirone HCl 5 mg 12/23/20 17:00 12/30/20 08:38 Buspirone Hcl 5 Mg Tablet PO 5 mg TID PADMINI Administration Carvedilol 6.25 mg 12/26/20 11:20 12/30/20 08:39 Carvedilol 6.25 Mg Tablet PO 6.25 mg Q12HR PADMINI Administration Cyclobenzaprine HCl 10 mg 12/25/20 13:00 12/30/20 08:38 Cyclobenzaprine Hcl 10 Mg Tablet PO 10 mg TID PADMINI Administration Diclofenac Sodium 75 mg 12/25/20 11:05 12/30/20 08:39 Diclofenac Sod 75 Mg Tablet.Ec PO 75 mg BID PADMINI Administration Duloxetine HCl 60 mg 12/23/20 09:00 12/30/20 08:37 Duloxetine Hcl 60 Mg Capsule.Dr PO 60 mg DAILY PADMINI Administration Enoxaparin Sodium 40 mg 12/24/20 09:00 12/30/20 08:37 Enoxaparin 40 Mg/0.4 Ml Syringe SUB-Q 40 mg DAILY PADMINI Administration Ferrous Sulfate 324 mg 12/23/20 08:00 12/30/20 08:39 Ferrous Sulfate 324 Mg Tablet PO 324 mg DAILY@0800 PADMINI Administration Hydroxyzine HCl 10 mg 12/22/20 19:45 12/29/20 08:27 Hydroxyzine Hcl 10 Mg Tablet PO 10 mg Q6H PRN Administration Itching Lisinopril 5 mg 12/26/20 09:00 12/30/20 08:38 Lisinopril 5 Mg Tablet PO 5 mg DAILY PADMINI Administration Lorazepam 2 mg 12/22/20 20:41 12/30/20 10:01 Lorazepam Inj (*Crx) 2 Mg/Ml Vial IV PUSH 2 mg Q6H PRN Administration Anxiety Mirtazapine 30 mg 12/29/20 21:00 12/29/20 20:26 Mirtazapine 30 Mg Tablet PO 30 mg HS PADMINI Administration Non-Formulary Medication 25 mg 12/30/20 09:00 Naloxegol [Movantik] PO 01/29/21 09:01 QAM PADMINI Ondansetron HCl 4 mg 12/23/20 04:07 12/23/20 03:50 Ondansetron Inj 4 Mg/2 Ml Vial IV PUSH 4 mg Q6H PRN Administration Nausea And Vomiting Pantoprazole Sodium 40 mg 12/23/20 09:00 12/30/20 08:38 Pantoprazole 40 Mg Tablet PO 40 mg DAILY PADMINI
[2020-12-30 13:40] VITALS: BP 160/91; PULSE 70; RESP 18; TEMP 36.3; O2SAT 97
--- NOTE | 2020-12-30 14:16 | PM.DS ---
DS: Admitting Diagnosis Admitting Diagnosis Admitting Diagnosis: Falls DS: Discharge Diagnosis Discharge Diagnosis (1) Shock: Code(s): R57.9 - Shock, unspecified Status: Acute Assessment and Plan: Patient with BP dropping to 71/50 requiring central line placement. Levophed started and patient admitted to the ICU. [place] related to dehydration and/or sepsis and/or narcotics. 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 Moved out of ICU on 12/24. BP now robust and her anti-HTN medications able to added back. (2) Bacteremia: Code(s): R78.81 - Bacteremia Status: Acute Assessment and Plan: BCx have returned positive with Gram positive cocci in clusters from aerobic bottle only in 1 of 2 bottles. Vanco added 12/24 to Zosyn 12/23. Could explain some of her symptoms. Could also be contaminate. Echo showing no obvious vegetations. BCx had to be sent out to another lab (prelim result was Dolosigranulum pigrum). ID consulted who felt this was either a skin contaminant vs transient bacteremia of no clinical consequence. Abx stopped. (3) Altered mental state: Code(s): R41.82 - Altered mental status, unspecified Status: Acute Assessment and Plan: Mental status better overall. Unclear if related to the shock/dehydration/infection and/or from the narcotics. We slowly added back her narcotics and her mental status remained stable. We used [place] but did not add back her morphine or Percocet. (4) Elevated troponin: Code(s): R77.8 - Other specified abnormalities of plasma proteins Status: Acute Assessment and Plan: Troponin peaked at 0.10 felt related to the HoTN. She does have chronic chest pain that her rand sewer is aware of. Repeat EKG showing no change. Repeat Trop trending down. Echo showing EF 76% with no wall motion abnormalities, mild-mod MR, mild pulm HTN and moderate TR. Tele showing brief AFib and Cardiology did not have any further recommendations. Continue ASA. (5) Colitis: Code(s): K52.9 - Noninfective gastroenteritis and colitis, unspecified Status: Acute Assessment and Plan: CT scan showing possible descending colitis. Suspect this is either a false reading or related to ischemia from the HoTN. WBC normal. She was treated with abx given the HoTN and positive BCx. She completed a course of abx. (6) Acute kidney injury: Code(s): N17.9 - Acute kidney failure, unspecified Status: Acute Assessment and Plan: Creatinine is 2.0 on admission. She was treated with IV fluids and Cr improved. Suspect related to dehydration/pre-renal. (7) Depression with anxiety: Code(s): F41.8 - Other specified anxiety disorders Status: Acute Assessment and Plan: Mood remained stable majority of the time. She did have some anxiety at times. Ativan available prn and she used this 1-2x/day on average. We continued home regimen. (8) Anemia, unspecified: Code(s): D64.9 - Anemia, unspecified Status: Chronic Assessment and Plan: Hgb 11.6 on admission. Has normal Hgb in the past. Macrocytosis noted. B12/folate normal. No signs and symptoms of bleeding at this time. Hgb stable in the 9-10 range now (9) Chronic pain: Code(s): G89.29 - Other chronic pain Status: Chronic Assessment and Plan: As above. We continued a majority of her home regiment. (10) Essential (primary) hypertension: Code(s): I10 - Essential (primary) hypertension Status: Acute Assessment and Plan: BP robust. Lisinopril, Coreg resumed. Lasix remained on hold. We added back lasix at discharge. DS: Summary Hospital Course Reason for hospitalization: 70yo female with chronic pain syndrome here for falls and had HoTN in the ED requiring central line placement and Levophed started. Please see H&P for details. Hospital Cou
--- NOTE | 2020-12-30 14:57 | CONS_ITS ---
DATE OF CONSULTATION: 12/30/2020 REASON FOR CONSULTATION: Bacteremia. HISTORY OF PRESENT ILLNESS: 70-year-old female known to me from the past. She was recently admitted to the hospital on December 22 with several falls, confusion, anxiety, and apparently slurred speech as well. She had abnormal chest x-ray on admission and required pressors. Her hospital course has been complicated by resolution in her hypotension, resolution in her altered mental status, elevated troponin, renal insufficiency, now resolved, stable anemia. Due to her presenting illness, she was started on piperacillin tazobactam after positive blood cultures on December 23 and vancomycin was added the following day. She remains on both now. Identity of the blood cultures is not yet available, but preliminary analysis from microbiology indicates dolosigranulum pigrum. To my recollection, patient has had no previous bacteremias. The patient denies fever, chills, sweats. Her pain pump was last refilled about 31 days ago. By her report, the AICD has been in place for about 1 year, has not been exhibiting any cutaneous symptoms. The patient denies shortness of breath, cough, or dyspnea on exertion. ALLERGIES: CIPROFLOXACIN, DECREASED LEVEL OF CONSCIOUSNESS. PRESENT MEDICATIONS: List reviewed. No immunosuppressants. HABITS: Tobacco until recently. Occasional alcohol. PAST MEDICAL HISTORY: CABG, cholecystectomy, hip arthroplasties, spinal surgery, hysterectomy, hyperlipidemia, chronic pain, cervical fusion, anemia, and anxiety. FAMILY HISTORY: Diabetes, hypertension, stroke, depression. SOCIAL HISTORY: She is , lives locally. Does not work outside the home. REVIEW OF SYSTEMS: 14-point review otherwise negative other than recent right dorsal foot operation with residual pain. PHYSICAL EXAMINATION: GENERAL: This is a middle age female, who appears older than her actual age. No acute distress. VITAL SIGNS: Afebrile since arrival, 77, 16, 146/72, 96% on room air. SKIN: Few ecchymoses consistent with phlebotomy. No rashes. Warm and dry. She has no ulcerations. The right dorsal foot is normal to inspection and palpation. NODES: No cervical adenopathy. EENT: Conjunctivae are normal. Oropharynx, oral mucosa normal. NECK: No masses, thyromegaly, or meningismus. LUNGS: Clear to auscultation and percussion. CARDIAC: Regular rate and rhythm. No murmur or gallop. Pulses are 2+ and equal. ABDOMEN: Nontender, soft. No organomegaly. No masses. Nondistended. EXTREMITIES: No clubbing, cyanosis, or edema. CHEST: AICD in place without hematoma, fluctuance, or skin breakdown. Analgesic pump, left upper quadrant, also without skin breakdown, fluctuance, or tenderness. LABORATORY DATA: Blood culture 1 out of 2 sets for the above gram-positive cocci in clusters. Blood culture #2 final no growth. White count has been consistently normal. Hemoglobin 9.5, platelets are 248. She has mild hyponatremia. Remainder of chemistry panel is normal. Urinalysis, no evidence of infection. CRP 4 days ago was 2.5. RADIOLOGY: Abdomen and pelvic CT, no acute changes, chronic changes seen as described. Chest x-ray, patchy bilateral airspace disease. ASSESSMENT: 1. Gram-positive bacteremia. Suspect a skin contaminant versus a transient bacteremia of no clinical consequence. This organism has only recently been identified and appears to be a respiratory commensal organism. A brief literature search indicated no observed bacteremias in immunocompetent patients. 2. Gait disturbance and weakness and decreased level of consciousness, perhaps due to narcotic. She also was hypotensive, but in retrospect I doubt septic shock. 3. AICD and analgesic pump in place uninfected by exam.
[2020-12-30] MEDS: HYDROcodone/acetaminophen (*CRX) 5-325 MG TABLET 1 TAB PO (15:37)
[2020-12-30] MEDS: ONDANSETRON INJ 4 MG/2 ML VIAL IV PUSH (15:37)
--- NOTE | 2021-01-07 13:02 | PC.NURSE ---
Blood cx / are negative. Dr. Amy melvin.
--- NOTE | 2021-01-20 12:14 | PC.NURSE ---
Called [facility] to obtain ID for Aerobic bottle. ID was DOLOSIGRANULUM PIGRUM. Dr. Reyes aware of findings.
== END 2020-12-30 17:30 | DRG 641 ==
LOC: ANHED 12:43 → ANHICU 19:48 → ANH3MED 12-24 22:50 → ANHICU 12-31 16:05 → ANHIMU 12-31 16:05
PROVIDERS: Internal Medicine; Nurse Practitioner; Admitting Provider Family Medicine; Emergency Provider Emergency Medicine; PCP Internal Medicine; Visit Provider Internal Medicine
DX: E86.0 Dehydration (principal); R57.9 Shock, unspecified; N17.9 Acute kidney failure, unspecified; R78.81 Bacteremia; R41.82 Altered mental status, unspecified; R77.8 Other specified abnormalities of plasma proteins; K52.9 Noninfective gastroenteritis and colitis, unspecified; F41.8 Other specified anxiety disorders; D64.9 Anemia, unspecified; G89.4 Chronic pain syndrome; I10 Essential (primary) hypertension; I48.91 Unspecified atrial fibrillation; I25.10 Atherosclerotic heart disease of native coronary artery without angina pectoris; S00.83XA Contusion of other part of head, initial encounter; M25.552 Pain in left hip; W19.XXXA Unspecified fall, initial encounter; F41.9 Anxiety disorder, unspecified; R53.1 Weakness; E78.5 Hyperlipidemia, unspecified; Z79.899 Other long term (current) drug therapy; Z87.891 Personal history of nicotine dependence; Z98.1 Arthrodesis status; Z98.49 Cataract extraction status, unspecified eye; Z95.1 Presence of aortocoronary bypass graft; Z95.810 Presence of automatic (implantable) cardiac defibrillator; Z96.89 Presence of other specified functional implants
CPT/HCPCS: 36415; 36556; 51701; 70450; 71046; 72125; 73502; 74176; 80048; 80053; 80202; 80307; 81001; 82274; 82607; 82746; 83540; 83550; 83605; 83615; 83735; 84100; 84443; 84484; 85025; 85027; 86140; 87040; 93005; 93306; 96360; 97110; 97116; 97162; 97165; 97530; 97535; 99285; A9270; C1751; C8929; J1650; J2060; J2405; J2543; J3370; J3475; J3480; J7030; J7120; Q9957

== ENCOUNTER 2021-02-04 14:20 | Outpatient (CLI) | payer MEDICARE, OTHER, SELFPAY ==
--- NOTE | ~2021-02-04 | CT_ITS ---
EXAMINATION: CT abdomen wo con DATE: 02/04/2021 14:53 INDICATION: Ventral hernia without obstruction or gangrene TECHNIQUE: Computed tomography (CT) of the abdomen was performed without intravenous contrast. Automa марина exposure control and iterative reconstruction technique were employed. Exam dose: 253.37 mGy-cm total exam DLP. COMPARISON: 12/23/[address] abdomen pelvis FINDINGS: Status post sternotomy. Cardiac pacemaker with right atrial and ventricular leads. Normal heart size. No pericardial or pleural effusion. There is minimal atelectasis at the lung bases. Advanced healing of anterior sixth rib fracture. Left anterior abdominal subcutaneous pump device with tubing extending into lower thoracic spinal can al. No hepatic, splenic, pancreatic space-occupying mass lesion is evident. Some pancreatic calcification s suggesting chronic pancreatitis. The gallbladder is present. No bile duct or pancreatic duct dilata tion. Normal morphology of the adrenal glands. Bilateral renal atrophy. No renal calculus or hydroureteronephrosis is detected. There is diffuse irr egularity of the outline of both kidneys which may be due to chronic pyelonephritis persistent lobation. Abdominal aortic calcification, without aneurysm. Common iliac artery calcifications are noted as wel l. There are surgical clips in the central abdomen at base of the mesentery anterior to the distal abdom inal aorta and inferior vena cava. No bowel obstruction or intraperitoneal free air is detected. No ventral abdominal wall hernia is det ected. Diffuse osteopenia. The following findings are stable since 12/23/2020: Prominent burst fracture deformity and vertebroplasty at L3. Mild to moderate burst fracture deformity of L1. Mild to moderate anterior wedge compression fracture deformity of T12. Probable old sacral fracture deformities. IMPRESSION: No significant change since 12/23/2020 Reviewed, dictated and finalized at [facility]. Reviewed, dictated and finalized at [facility].
== END 2021-02-04 14:21 | disposition home or self-care (01) ==
PROVIDERS: PCP Internal Medicine; Visit Provider Internal Medicine
DX: K46.9 Unspecified abdominal hernia without obstruction or gangrene (principal)
CPT/HCPCS: 74150

== ENCOUNTER 2021-05-14 12:19 | Inpatient (IN) | payer MEDICARE, OTHER, SELFPAY ==
[2021-05-14] VITALS (8 sets, daily range): BP systolic 79–118; BP diastolic 40–88; PULSE 68–91; RESP 16–20; TEMP 36.1–37.4; O2SAT 92–100; BMI 25.0
--- NOTE | ~2021-05-14 | XR_ITS ---
EXAMINATION: XR chest 1V portable EXAM DATE: 05/14/2021 13:23 INDICATION: Cough, low blood sugar. TECHNIQUE: Portable AP frontal chest x-ray was obtained. Comparison is made to prior examination from 12/22/2020. FINDINGS: There is a dual lead pacemaker/AICD seen with leads projecting over the expected locations of the right atrial appendage and right ventricle. Sternotomy wires are present without findings to s uggest sternal dehiscence. There is some linear bibasilar airspace disease most consistent with atele ctasis. There are no pleural effusions. Cardiac silhouette is prominent but magnified on this AP yoan hnique. There is no pneumothorax suspected. The bones and soft tissues are unremarkable. Cervica l fusion hardware. IMPRESSION: Basilar subsegmental atelectasis. Reviewed, dictated and finalized at [facility].
--- NOTE | ~2021-05-14 | CT_ITS ---
EXAMINATION: CT abdomen pelvis wo con EXAM DATE: 05/14/2021 15:51 INDICATION: Low blood pressure, abdominal pain, weakness. TECHNIQUE: Spiral CT of the abdomen and pelvis was performed without contrast. Axial, coronal and s agittal images of the abdomen and pelvis were reviewed. The dose-length product (DLP) for this exami nation was 621.76 mGy-cm. The exposure was tailored according to patient size (auto mA exposure cont rol), and iterative reconstruction (ASIR) was used as additional dose reduction technique. Comparison is made to prior examination from 02/04/2021. FINDINGS: The bladder is severely distended, measuring about 16 x 16 x 10 cm. There is mild to modera te right and mild left hydronephrosis which could be from the distended bladder. Clinical correlation for possible outlet obstruction or neurogenic bladder, consider Cedeno catheter. Patient may have had hysterectomy, but pelvis poorly evaluated due to artifact from bilateral hip replacements. Mild righ t perinephric fat stranding. The liver, spleen, adrenal glands and pancreas are unremarkable. Gallbladder is distended, could be from no recent ingestion of food but check for right upper quadrant tenderness. No calcified cholelit hiasis. There is no retroperitoneal or pelvic lymphadenopathy. There is moderate scattered arterio sclerotic disease. There are no findings to suggest appendicitis. The stomach and small bowel are unremarkable. There is moderate amount of colonic stool. No free intraperitoneal gas. There are sternotomy wires. Heart is normal in size. Bibasilar linear atelectasis with progression co mpared to prior study. Pacemaker/AICD leads. Mild emphysema. There are old right rami fractures. T reated L3 burst fracture unchanged. Mild chronic burst fracture L1. Other mild compression fractures. With methylmethacrylate injection. Pain pump and catheter, tip at T7 level. There is moderate to sev ere chronic appearing anterior wedging of T8. IMPRESSION: 1. Development of severely distended bladder, could be neurogenic or outlet obstruction. Recommend m icturition attempt if able, Cedeno catheter if not. 2. Mild to moderate right, mild left hydronephrosis probably from bladder. Mild right perinephric fa t stranding. Correlate with urinalysis. 3. Development of distended gallbladder, could be from not eating recently but check for tenderness. 4. Moderate amount of colonic stool, constipation. 5. Increase in bibasilar subsegmental atelectasis. Reviewed, dictated and finalized at location [facility]. IMPRESSION: 1. Development of severely distended bladder, could be neurogenic or outlet ob struction. Recommend micturition attempt if able, Cedeno catheter if not. 2. Mild to moderate right, mild left hydronephrosis probably from bladder. Mil d right perinephric fat stranding. Correlate with urinalysis. 3. Development of distended gallbladder, could be from not eating recently but check for tenderness. 4. Moderate amount of colonic stool, constipation. 5. Increase in bibasilar subsegmental atelectasis.
--- NOTE | ~2021-05-14 | US_ITS ---
US right upper quadrant INDICATION: Gallbladder distention PROCEDURE: Realtime right upper abdominal ultrasound. COMPARISON: No prior studies for comparison. FINDINGS: Pancreas not visualized due to bowel gas. Liver echotexture is normal without focal mass o r intrahepatic biliary dilatation. There is normal directional flow in the portal vein. There is a small right pleural effusion. There is trace free fluid in the right upper abdomen. Gallbl adder is distended with gallbladder wall thickening and pericholecystic fluid. Common bile duct maxi ures 7 mm. No sonographic Levin's sign. IMPRESSION: 1: Gallbladder distention with gallbladder wall thickening and pericholecystic fluid. No definite gal lstones. Mildly dilated common duct. Findings suspicious for acalculous cholecystitis. 2: Trace ascites. Small right pleural effusion. Reviewed, dictated and finalized at location A. IMPRESSION: 1: Gallbladder distention with gallbladder wall thickening and pericholecystic fluid. No definite gallstones. Mildly dilated common duct. Findings suspicious for acalculous cholecystitis. 2: Trace ascites. Small right pleural effusion.
--- NOTE | ~2021-05-14 | NM_ITS ---
EXAMINATION: NM hepatobiliary w pharm DATE: 05/17/2021 09:40 INDICATION: Cholecystitis. COMPARISON: Ultrasound 05/16/2021, CT abdomen and pelvis 05/14/2021 TECHNIQUE: 5.34 mCi Tc-99m mebrofenin (Choletec) was administered intravenously. Scintigraphic image s of the abdomen were obtained for one hour. Then, 1.27 mcg sincalide (Kinevac) IV was administered, and imaging was continued for 30 minutes. FINDINGS: There is normal clearance of radiotracer from the blood pool. There is homogeneous tracer u ptake by the liver. Activity progresses to the bowel and gallbladder. Gallbladder ejection fraction (GBEF) was 25%. Note that most patients with gallbladder dysfunction have GBEF < 35%, which overlaps with the broad normal range of 10-90%. IMPRESSION: 1. Gallbladder ejection fraction in the lower range of normal. Note that this value overlaps with th e range of values that may be seen with gallbladder dysfunction and/or chronic cholecystitis if there is appropriate clinical correlation. Reviewed, dictated and finalized at location A. IMPRESSION: 1. Gallbladder ejection fraction in the lower range of normal. Note that this value overlaps with the range of values that may be seen with gallbladder dysfu nction and/or chronic cholecystitis if there is appropriate clinical correlatio nGermain
--- NOTE | ~2021-05-14 | US_ITS ---
US renal BI 05/18/2021 16:38 Procedure: Realtime transabdominal ultrasound of the kidneys and bladder. Indication: Bilateral hydronephrosis. Comparison: Ultrasound dated 05/16/2021 Findings: Renal echotexture is normal bilaterally without hydronephrosis, contour deforming mass or r enal calculus. The right kidney measures 10.3 cm and left kidney measures 7.5 cm. Bladder not well v isualized due to catheterization. Impression: 1: Unremarkable renal ultrasound. No stones, masses or hydronephrosis. Reviewed, dictated and finalized at location B. Impression: 1: Unremarkable renal ultrasound. No stones, masses or hydronephrosis.
--- NOTE | ~2021-05-14 | US_ITS ---
US renal BI 05/16/2021 11:28 Procedure: Realtime transabdominal ultrasound of the kidneys and bladder. Indication: Hydronephrosis Comparison: CT dated 05/14/2021 Findings: There is bilateral hydronephrosis. No focal renal masses are identified. No cysts. No stone s. There is a Cedeno catheter in the bladder which is decompressed. Bladder wall is thickened. The rig ht kidney measures 9.3 cm and left kidney measures 7.3 cm. Bladder within normal limits. Impression: 1: Bilateral hydronephrosis. 2: Bladder wall thickening measuring 1.2 cm. Reviewed, dictated and finalized at location A. Impression: 1: Bilateral hydronephrosis. 2: Bladder wall thickening measuring 1.2 cm.
--- NOTE | 2021-05-14 12:33 | ECG_ITS ---
Measurements Intervals [place] Rate: 83 P: 14 [place]: 156 QRS: 6 QRSD: 117 T: 90 QT: 391 QTc: 461 Interpretive Statements SINUS RHYTHM CONSIDER INFERIOR INFARCT, AGE INDETERMINATE ST-T WAVE ABNORMALITY IN ANTERIOR LEADS- CONSIDER ISCHEMIA BASELINE ARTIFACT- I, II, III, AVR, AVL, AVF, V3-V5 ABNORMAL ECG Electronically Signed On 05-14-2021 13:06:25 CDT by Marcos Figueroa D.O.
[2021-05-14] MEDS: SODIUM CHLORIDE 0.9% IV 1,000 ML 999 ML (12:43)
--- NOTE | 2021-05-14 12:59 | ED.WEAKNESS ---
HPI - Weakness General Chief complaint: Weakness Stated complaint: WEAK, LOW BP Time Seen by Provider: 05/14/21 12:43 Source: RN notes reviewed History of Present Illness HPI Narrative: Patient presents to the emergency department from home for weakness. History is per the patient as well as her son is present the patient's home health nurse came to the patient's house today and noted the patient does appear more weak and pale at that time she took her blood pressure and blood pressure was noted to be in the 60s. Patient does not live at home by herself per the son the patient had a history of similar episodes before with dehydration and admission as well as having urinary tract infection. Patient states she has not been eating as well she denies any fevers or chills chest pain shortness of breath nausea or vomiting states she does have some lower abdominal pain patient does states that she takes oxycodone 3 times a day for chronic back pain that she has been taking Related Data Home Medications Medication Instructions Recorded Confirmed mirtazapine 30 mg tablet 30 mg PO HS 06/19/19 05/14/21 quetiapine 300 mg tablet 100 mg PO BID 07/04/19 05/14/21 bisacodyl 5 mg PO BID 12/22/20 05/14/21 cetirizine 10 mg PO DAILY 12/22/20 05/14/21 cholecalciferol (vitamin D3) 50 mcg PO DAILY 12/22/20 05/14/21 [Vitamin D3] diclofenac sodium 75 mg PO BID 12/22/20 05/14/21 duloxetine 60 mg PO DAILY 12/22/20 05/14/21 ferrous sulfate 325 mg PO DAILY 12/22/20 05/14/21 furosemide 20 mg PO DAILY 12/22/20 05/14/21 nabumetone 500 mg PO DAILY 12/22/20 05/14/21 oxycodone-acetaminophen 10 mg-325 1 tablet PO Q8H PRN tablet 05/11/21 05/14/21 mg tablet buspirone [BuSpar] 10 mg PO TID 05/14/21 05/14/21 Allergies Allergy/AdvReac Type Severity Reaction Status Date / Time ciprofloxacin Allergy Severe Unresponsiv Verified 05/11/21 14:21 e Review of Systems Review of Systems: Gen.: Denies fevers or chills ENT: Denies congestion Respiratory: Denies shortness of breath or cough CV: Denies chest pain or palpitations GI: Denies abdominal pain nausea, emesis or diarrhea Musculoskeletal: Denies back pain or muscle pain Neuro: Reports weakness Skin: Denies rash Except as documented, all other systems reviewed and negative [facility] Past Medical History Medical History Anemia, unspecified Anxiety Cervical fusion syndrome Chronic pain Hyperlipidemia Hyponatremia Pain 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 patient-controlled analgesia (FIRER MARINE) Serum potassium elevated Surgical History Surgical History Cataract extraction status H/O abdominal hysterectomy H/O colonoscopy H/O laminectomy H/O lumbar discectomy H/O Spinal surgery History of bilateral hip arthroplasty I am not sure if they replaced or repaired Hx of cholecystectomy S/P CABG (coronary artery bypass graft) S/P CABG x 3 Family History Family History Mother Depression Cerebrovascular accident Sibling Depression Father Cerebrovascular accident, Onset Age: 83 Family history of coronary artery disease Patient's father is Other Diabetes mellitus Family history of arthritis Hypertension Social History Social History Social History: The patient tells me that she recently quit smoking. She denies any alcohol except she does occasionally have a beer 2. She has 2 sons. She is disabled. She desires to be a full code. She says her sons are the durable power attorney at law for healthcare. She is . Smoking packs per day: 0.5 Smoking cigarettes per day: 10.0 Years smoked: 30 Smoking pack-years: 15.00 Smoking status: Former smoker Second hand tobacco smoke exposure: No Alcohol intake: former Substance use: never Substance use type: does not use Gender id
[2021-05-14 13:27] LABS: Hematocrit 28.9 % (37.0-47.0); Hemoglobin 9.7 g/dL (12.0-15.0); Mean Corpuscular HGB Conc 33.6 g/dl (32-36); Mean Corpuscular Hemoglobin 33.7 pg (26-34); Mean Corpuscular Volume 100.3 fl (80-100); Mean Platelet Volume 9.4 fl (7.4-10.4); Platelet Count Result 202 k/mm3 (150-375); Red Blood Count 2.88 M/mm3 (4.2-5.4); Red Cell Distribution Width 13.3 % (11.5-14.5); White Blood Count 11.3 K/mm3 (4.5-10.0)
[2021-05-14] MEDS: SODIUM CHLORIDE 0.9% IV 1,000 ML 999 ML IV CONT (13:34)
[2021-05-14 13:40] LABS: INR 1.3; Prothrombin Time 15.5 Seconds (11.1-14.7)
[2021-05-14 13:41] LABS: Partial Thromboplastin Time 32.6 SECONDS (22.3-36.8)
[2021-05-14 13:43] LABS: Lactic Acid Reflex 0.9 mmol/L (0.7-2.1)
[2021-05-14 13:44] LABS: Alanine Aminotransferase 170 U/L (4-35); Albumin Level 3.6 g/dL (3.5-5.1); Alkaline Phosphatase 68 U/L (38-126); Anion Gap 8 mmol/L (8-16); Aspartate Amino Transferase 95 U/L (14-36); Bilirubin,Total 0.7 mg/dL (0.2-1.3); Blood Urea Nitrogen 48 mg/dL (7-17); Calcium 8.2 mg/dL (8.4-10.2); Carbon Dioxide 24 mmol/L (22-30); Chloride 89 mmol/L (98-107); Estimated CRCL calculation 23 ml/min; Estimated Glomerular Filt Rate 30; Glucose 82 mg/dL (65-110); Magnesium 1.6 mg/dL (1.6-2.3); Sodium 121 mmol/L (137-145)
[2021-05-14 13:55] LABS: Band Neutrophils Percent 14 % (0-6); Basophils Absolute Manual 0.11 K/mm3 (0.0-0.1); Basophils Percent Manual 1 % (0-1); Lymphocytes Absolute Manual 0.11 K/mm3 (1.1-4.5); Monocytes Absolute Manual 0.33 K/mm3 (0.1-0.90); Monocytes Percent Manual 3 % (3-9); Neutrophils Absolute Manual 10.73 K/mm3 (1.7-7.2); Neutrophils Percent Manual 81 % (46-73); Platelet Estimate Adequate (Adequate); Total Cells Counted 100
[2021-05-14] MEDS: SODIUM CHLORIDE 0.9% IV 500 ML 999 ML IV CONT ×2 (14:26→15:55)
[2021-05-14 14:33] LABS: Lipase 25 U/L (23-300)
[2021-05-14 15:20] LABS: Add Urine Microscopic? YES; Appearance Urine Cloudy (Clear); Bacteria Urine Trace /hpf; Bilirubin Urine Negative (Negative); Blood Urine 1+ (Negative); Color Urine Yellow (Yellow); Glucose Urine UA Negative (Negative); Ketones Urine Negative (Negative); Leukocyte Esterase Ur 3+ LEU/UL (Negative); Nitrate Urine Negative (Negative); Protein Urine 1+ mg/dL (Negative); RBC Urine 0-2 /hpf (0-2); Specific Grav Ur 1.008 (1.001-1.035); Squamous Epithelial Cell Urine Rare /hpf (Few); Urobilinogen Urine Negative mg/dL (<2.0); WBC Clumps Urine Present /HPF; WBC Urine 16-20 /hpf
[2021-05-14 17:24] LABS: Acetaminophen < 10 ug/mL (10-30)
--- NOTE | 2021-05-14 19:03 | ADMGEN ---
This patient, Domonique Gonzales, was admitted to 3 Med Surg Room 321-01 at 1820. Patient/family oriented to hospital policies and general routines including ID bracelet, bed and alarms, visiting hours, pain management, procedures, bathroom and other care routines, personal items, smoking policy, room service/diet, and visiting hours. Information on how to activate the Rapid Response Team has been discussed. Patient/Family are encouraged to report perceived risks to care and to ask questions if they do not understand what they are told or what they should do. pt orientated to use of call light. up on phone with son, with no complaints at this time.
[2021-05-14] MEDS: SODIUM CHLORIDE 0.9% IV 1,000 ML 80 ML IV CONT (19:29)
--- NOTE | 2021-05-14 21:37 | PM.IMHP ---
H&P: HPI History of Present Illness Date/Time: 05/14/21 21:37 Chief Complaint: Weakness Narrative: This is a 71-year-old female with past medical history significant for pain pump implanted, chronic pain syndrome, iron deficiency anemia, gastroesophageal reflux disease, hypertension, coronary artery disease, coronary artery bypass graft x3 vessel disease. Patient was brought in today to the emergency room after her home health nurse went in to check on her and her vitals were abnormal she had a blood pressure of systolic below 90 and diastolic below 60. Nurse immediately suggested to call an ambulance to bring her to the emergency room and patient called her son who brought her to the emergency. In emergency room preliminary workup was significant for a urinalysis with numerous wbc's present a creatinine of 1.7 a BUN of 48. Patient denies any fevers, any rigors, any chills, any nausea, any vomiting, she has constipation, she has a distended abdomen,her appetite is poor ,no shortness of breath ,no cough ,no sputum production, she has had constipation and has been incontinent of liquid stool. In emergency room patient received IV fluids which elevated her blood pressure. Decision has been made to admit the patient for further management evaluation and treatment. Review of Systems Review of Systems: Poor appetite, abdominal distention, constipation, incontinence of liquid stool. Constitutional: Constitutional: Denies chills, Denies fatigue, Denies fever(s), Denies malaise and Denies night sweats Eyes: Eyes: Reports no additional eye complaints ENT: Reports system reviewed and no additional complaints, except as documented Cardiovascular: Cardiovascular: Reports no additional cardiovascular complaints Respiratory: Respiratory: Reports no additional respiratory complaints Gastrointestinal: Gastrointestinal: Reports constipation, Denies GI cramping, Denies dyspepsia, Reports diarrhea, Denies nausea and Denies vomiting Genitourinary: Genitourinary: Reports no additional female genitourinary complaints Musculoskeletal: Musculoskeletal: Reports back pain Integumentary/Breasts: Skin/Breast: Reports system reviewed and no additional complaints, except as docu Neurologic: Reports system reviewed and no additional complaints, except as documented Psychiatric: Psychiatric: Reports no additional psychiatric complaints Endocrine: Endocrine: Reports no additional endocrine complaints Hematologic/Lymphatic: Hematologic/Lymphatic: Reports no additional hematologic/lymphatic complaints Allergic/Immunologic: Allergic/Immunologic: Reports no additional allergic/immunologic complaints [facility] Past Medical History Medical History (Updated 05/15/21 @ 01:45 by Aamir Briceño MD) Anemia, unspecified Anxiety Cervical fusion syndrome Chronic pain Hyperlipidemia Hyponatremia Pain 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 patient-controlled analgesia (LENS CUTTER) Serum potassium elevated Surgical History Surgical History (Updated 05/15/21 @ 01:45 by Aamir Briceño MD) Cataract extraction status H/O abdominal hysterectomy H/O colonoscopy H/O laminectomy H/O lumbar discectomy H/O Spinal surgery History of bilateral hip arthroplasty I am not sure if they replaced or repaired Hx of cholecystectomy S/P CABG (coronary artery bypass graft) S/P CABG x 3 Family History Family History Mother Depression Cerebrovascular accident Sibling Depression Father Cerebrovascular accident, Onset Age: 83 Family history of coronary artery disease Patient's father is Other Diabetes mellitus Family history of arthritis Hypertension Social History Social History Social History: The patient tells me that she recently quit smoking. She denies any alcohol except she does occasionally have a beer 2. She has 2 sons. She is disabled. She desires to be a full
[2021-05-15] VITALS (8 sets, daily range): BP systolic 88–110; BP diastolic 40–68; PULSE 70–77; RESP 16–18; TEMP 36.3–36.7; O2SAT 95–96
[2021-05-15] MEDS: oxyCODONE/ACETAMINOPHEN (*CRX) 5-325 MG TABLET 1 TABLET PO ×2 (01:46→14:56)
[2021-05-15 06:28] LABS: Hematocrit 27.4 % (37.0-47.0); Hemoglobin 9.1 g/dL (12.0-15.0); Mean Corpuscular HGB Conc 33.2 g/dl (32-36); Mean Corpuscular Hemoglobin 33.6 pg (26-34); Mean Corpuscular Volume 101.1 fl (80-100); Mean Platelet Volume 9.5 fl (7.4-10.4); Platelet Count Result 163 k/mm3 (150-375); Red Blood Count 2.71 M/mm3 (4.2-5.4); Red Cell Distribution Width 13.2 % (11.5-14.5); White Blood Count 10.8 K/mm3 (4.5-10.0)
[2021-05-15 06:47] LABS: Alanine Aminotransferase 126 U/L (4-35); Albumin Level 2.8 g/dL (3.5-5.1); Alkaline Phosphatase 69 U/L (38-126); Anion Gap 8 mmol/L (8-16); Aspartate Amino Transferase 55 U/L (14-36); Bilirubin,Total 0.4 mg/dL (0.2-1.3); Blood Urea Nitrogen 35 mg/dL (7-17); Calcium 7.3 mg/dL (8.4-10.2); Carbon Dioxide 19 mmol/L (22-30); Chloride 98 mmol/L (98-107); Estimated CRCL calculation 26 ml/min; Estimated Glomerular Filt Rate 34; Glucose 99 mg/dL (65-110); Potassium 3.7 mmol/L (3.4-5.0); Sodium 125 mmol/L (137-145)
[2021-05-15 08:05] LABS: Band Neutrophils Percent 18 % (0-6); Eosinophils Percent Manual 1 % (0-4); Monocytes Absolute Manual 0.21 K/mm3 (0.1-0.90); Monocytes Percent Manual 2 % (3-9); Neutrophils Absolute Manual 2.26 K/mm3 (1.7-7.2); Neutrophils Percent Manual 3 % (46-73); Total Cells Counted 100
[2021-05-15 08:06] LABS: Crenated RBC 1+ (NORMAL); Platelet Estimate Adequate (Adequate)
[2021-05-15] MEDS: busPIRone HCL 10 MG TABLET PO ×3 (08:23→17:17)
[2021-05-15] MEDS: DULoxetine HCL 60 MG CAPSULE.DR PO (08:23)
[2021-05-15] MEDS: NABUMETONE 500 MG TABLET PO (08:23)
[2021-05-15] MEDS: PANTOPRAZOLE 40 MG TABLET PO (08:23)
[2021-05-15] MEDS: carvediloL 12.5 MG TABLET PO ×2 (08:23→19:59)
[2021-05-15] MEDS: CHOLECALCIFEROL 1,000 UNITS TABLET 2000 UNITS PO (08:24)
[2021-05-15] MEDS: DICLOFENAC SOD 75 MG TABLET.EC PO ×2 (08:24→17:17)
[2021-05-15] MEDS: ASPIRIN 81 MG CHEWABLE TABLET PO (08:24)
[2021-05-15] MEDS: POTASSIUM CHLORIDE 20 MEQ TABLET.ER PO (08:24)
[2021-05-15] MEDS: FERROUS SULFATE 324 MG TABLET PO (08:25)
[2021-05-15] MEDS: QUEtiapine FUMARATE 100 MG TABLET PO ×2 (08:25→17:17)
[2021-05-15] MEDS: LORATADINE 10 MG TABLET PO (08:25)
[2021-05-15] MEDS: ATORVASTATIN 40 MG TABLET PO (08:25)
[2021-05-15] MEDS: oxyCODONE HCL (*CRX) 5 MG TAB IR PO (08:28)
[2021-05-15] MEDS: BISACODYL 5 MG TABLET EC PO ×2 (08:28→17:16)
[2021-05-15] MEDS: PREGABALIN (*CRX) 50 MG CAPSULE PO ×3 (08:29→17:16)
--- NOTE | 2021-05-15 09:50 | PM.CNGS ---
Assessment and Plan Assessment and plan (1) Abdominal pain: Code(s): R10.9 - Unspecified abdominal pain Status: Acute Assessment and Plan: Gallbladder noted to be distended on CT scan, likely secondary to poor po intake, exam largely benign at this time, cont low fat diet (2) Acute UTI: Code(s): N39.0 - Urinary tract infection, site not specified Status: Acute Assessment and Plan: continue antibiotics, likely contributing factor to ileus and anorexia (3) Ileus: Code(s): K56.7 - Ileus, unspecified Status: Acute Assessment and Plan: multifactorial given history of chronic narcotic use, also UTI contributing factor History of Present Illness Consult details Consult date: 05/15/21 Reason for consult: abdominal pain Requesting physician: Sinai Reynolds MD Narrative: The patient is a 71-year-old female with multiple medical issues, including CAD and chronic pain syndrome, presenting to the emergency department with weakness, hypotension. The patient responded well to resuscitation in the emergency department. The patient was found by her home health nurse to be hypotensive and lethargic. The patient report she has not been feeling well over the last week. The patient reports she has really not eaten over the same time span. Patient has a history of chronic constipation and reports incontinent liquid stools. Review of Systems Constitutional: Constitutional: Reports anorexia, Reports body ache(s), Denies chills, Reports fatigue, Denies fever(s), Reports lethargy, Reports malaise, Reports poor appetite, Reports weakness, Denies weight gain and Denies weight loss Eyes: Eyes: Reports no additional eye complaints ENT: Reports system reviewed and no additional complaints, except as documented Cardiovascular: Cardiovascular: Reports no additional cardiovascular complaints Respiratory: Respiratory: Reports no additional respiratory complaints Gastrointestinal: Gastrointestinal: Reports as per HPI, Reports abdominal pain, Denies belching, Denies melena, Denies bloating, Denies hematochezia, Denies change in bowel habits, Denies change in stool character, Reports constipation, Reports fecal incontinence, Reports diarrhea, Reports loose stools, Reports nausea and Denies vomiting Genitourinary: Genitourinary: Reports no additional female genitourinary complaints Musculoskeletal: Musculoskeletal: Reports no additional musculoskeletal complaints Integumentary/Breasts: Skin/Breast: Reports system reviewed and no additional complaints, except as docu Neurologic: Reports system reviewed and no additional complaints, except as documented Psychiatric: Psychiatric: Reports no additional psychiatric complaints Endocrine: Endocrine: Reports no additional endocrine complaints Hematologic/Lymphatic: Hematologic/Lymphatic: Reports no additional hematologic/lymphatic complaints Allergic/Immunologic: Allergic/Immunologic: Reports no additional allergic/immunologic complaints PMFSH Past Medical History Medical History Anemia, unspecified Anxiety Cervical fusion syndrome Chronic pain Hyperlipidemia Hyponatremia 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
[2021-05-15] MEDS: SODIUM CHLORIDE 0.9% IV 1,000 ML 80 ML IV CONT ×2 (11:09→19:59)
--- NOTE | 2021-05-15 17:01 | PM.IMPN ---
Progress Note: A&P Assessment and Plan (1) Acute UTI: Code(s): N39.0 - Urinary tract infection, site not specified Status: Acute Assessment and Plan: Patient received ceftriaxone in the emergency room Cultures in progress Currently on Zosyn Deescalate antibiotics as needed (2) Acute renal insufficiency: Code(s): N28.9 - Disorder of kidney and ureter, unspecified Status: Acute Assessment and Plan: Likely secondary to hypotensive episode Holding lisinopril Holding Lasix IV fluid resuscitation on as needed Daily intake and output Renal failure slightly improved today (3) History of implantable cardioverter-defibrillator (ICD) placement: Code(s): Z95.810 - Presence of automatic (implantable) cardiac defibrillator Status: Acute Assessment and Plan: Unchanged Continue to monitor (4) 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): Code(s): R52 - Pain, unspecified Status: Acute Assessment and Plan: Unchanged Continue to monitor Continue pain pump Continue home meds (5) S/P CABG (coronary artery bypass graft): Code(s): Z95.1 - Presence of aortocoronary bypass graft Status: Acute Assessment and Plan: Stable Continue to monitor (6) Hypotension: Code(s): I95.9 - Hypotension, unspecified Status: Acute Assessment and Plan: IV fluid resuscitation to continue (7) Anemia: Code(s): D64.9 - Anemia, unspecified Status: Acute Assessment and Plan: chronic hemoglobin at baseline noted (8) Hyponatremia: Code(s): E87.1 - Hypo-osmolality and hyponatremia Status: Acute Assessment and Plan: sodium level on admission is 121 baseline 134 improved to 125 with hydration will recheck it again this afternoon (9) Elevated liver enzymes: Code(s): R74.8 - Abnormal levels of other serum enzymes Status: Acute Assessment and Plan: AST ALT elevated. ALT elevation is new from previous lab results. CT abdomen with distended gallbladder (10) Urinary retention: Code(s): R33.9 - Retention of urine, unspecified Status: Acute Assessment and Plan: status post Cedeno catheter placement likely from UTI associated bilateral hydronephrosis mild to moderate right mild left problem from bladder retention (11) Hydronephrosis: Code(s): N13.30 - Unspecified hydronephrosis Status: Acute Assessment and Plan: recheck renal ultrasound to ensure hydronephrosis resolved (12) Bacteremia: Code(s): R78.81 - Bacteremia Status: Acute Assessment and Plan: Gram-negative bacilli in anaerobic bottle currently on Zosyn await identification likely source urine Subjective Date/time seen: 05/15/21 17:01 Interval history: HPI:This is a 71-year-old female with past medical history significant for pain pump implanted, chronic pain syndrome, iron deficiency anemia, gastroesophageal reflux disease, hypertension, coronary artery disease, coronary artery bypass graft x3 vessel disease. Patient was brought in today to the emergency room after her home health nurse went in to check on her and her vitals were abnormal she had a blood pressure of systolic below 90 and diastolic below 60. Nurse immediately suggested to call an ambulance to bring her to the emergency room and patient called her son who brought her to the emergency. In emergency room preliminary workup was significant for a urinalysis with numerous wbc's present a creatinine of 1.7 a BUN of 48. Patient denies any fevers, any rigors, any chills, any nausea, any vomiting, she has constipation, she has a distended abdomen,her appetite is poor ,no shortness of breath ,no cough ,no sputum production, she has had constipation and has been incontinent of liquid stool. In emergency room patient received IV fluids which elevated her blood pressure. Decision has been made to admit the patient for
[2021-05-15] MEDS: SODIUM CHLORIDE 0.9% IV 500 ML 999 ML IV CONT ×3 (17:08→23:13)
[2021-05-15] MEDS: QUEtiapine FUMARATE 100 MG TABLET 200 MG PO (19:58)
[2021-05-15] MEDS: MIRTAZAPINE 30 MG TABLET PO (19:59)
[2021-05-16] VITALS (7 sets, daily range): BP systolic 88–122; BP diastolic 48–63; PULSE 71–90; RESP 16–18; TEMP 35.9–36.4; O2SAT 93–95
[2021-05-16] MEDS: SODIUM CHLORIDE 0.9% IV 1,000 ML 80 ML IV CONT ×2 (02:57→17:40)
[2021-05-16 06:38] LABS: Basophils Percent Auto 0.5 % (0.2-1.2); Eosinophils Absolute Auto 0.5 K/mm3 (0-0.3); Eosinophils Percent Auto 5.6 % (0-4.4); Hematocrit 25.4 % (37.0-47.0); Hemoglobin 8.5 g/dL (12.0-15.0); Immature Granulocyte Absolute 0.02 K/mm3 (0.00-0.031); Immature Granulocyte Percent A 0.2 % (0-0.5); Lymphocytes Percent Auto 2.4 % (18.3-44.2); Mean Corpuscular HGB Conc 33.5 g/dl (32-36); Mean Corpuscular Volume 101.6 fl (80-100); Mean Platelet Volume 9.7 fl (7.4-10.4); Monocytes Absolute Auto 0.4 K/mm3 (0.1-0.6); Monocytes Percent Auto 4.4 % (2.6-8.5); Neutrophils Absolute Auto 7.3 K/mm3 (1.3-6.7); Neutrophils Percent Auto 86.9 % (45.5-73.1); Platelet Count Result 142 k/mm3 (150-375); Red Cell Distribution Width 13.7 % (11.5-14.5); White Blood Count 8.4 K/mm3 (4.5-10.0)
[2021-05-16 06:46] LABS: Alanine Aminotransferase 94 U/L (4-35); Albumin Level 2.4 g/dL (3.5-5.1); Alkaline Phosphatase 70 U/L (38-126); Anion Gap 6 mmol/L (8-16); Aspartate Amino Transferase 41 U/L (14-36); Bilirubin,Total 0.3 mg/dL (0.2-1.3); Blood Urea Nitrogen 31 mg/dL (7-17); Calcium 7.2 mg/dL (8.4-10.2); Carbon Dioxide 18 mmol/L (22-30); Chloride 107 mmol/L (98-107); Estimated CRCL calculation 28 ml/min; Estimated Glomerular Filt Rate 37; Glucose 78 mg/dL (65-110); Potassium 3.4 mmol/L (3.4-5.0); Sodium 131 mmol/L (137-145)
[2021-05-16 07:48] LABS: Anisocytosis 1+ (NORMAL); Band Neutrophils Percent 16 % (0-6); Crenated RBC 1+ (NORMAL); Eosinophils Absolute Manual 0.08 K/mm3 (0.02-0.5); Eosinophils Percent Manual 1 % (0-4); Lymphocytes Absolute Manual 0.08 K/mm3 (1.1-4.5); Neutrophils Absolute Manual 8.23 K/mm3 (1.7-7.2); Neutrophils Percent Manual 82 % (46-73); Platelet Estimate Adequate (Adequate); Total Cells Counted 100
--- NOTE | 2021-05-16 08:44 | PM.PNGS ---
Progress Note: A&P Assessment and Plan (1) Ileus: Code(s): K56.7 - Ileus, unspecified Status: Acute Assessment and Plan: exam benign, cont to caren diet, multifactorial ileus seems to be improving, await U/S Subjective Subjective Date/Time Seen: 05/16/21 08:45 pt getting bedside U/S this am, reports some mild upper abd pain, caren low fat diet Review of Systems Review of Systems: All systems reviewed & are unremarkable except as noted in HPI and below Exam Const: General: cooperative and no acute distress Orientation/consciousness: patient oriented x3 Resp: Effort & Inspection: normal respiratory effort Auscultation: clear to auscultation bilaterally Cardio: Rate: regular rate Rhythm: regular rhythm GI: Inspection: normal to inspection and distended GI Palp: Yes Soft to palpation, Yes Tenderness to palpation present (GI), No Guarding due to palpation present (GI) and No Rigid due to palpation Objective Data Vital Signs Vital Signs: Vital Signs - 24 hr 05/15/21 16:19 05/15/21 18:14 05/15/21 19:59 Temperature 36.4 C Pulse Rate 71 72 Respiratory Rate 16 Blood Pressure 88/48 L 110/68 Pulse Oximetry 96 05/15/21 21:31 05/15/21 22:52 05/16/21 00:08 Temperature 36.3 C L Pulse Rate 77 Respiratory Rate 18 Blood Pressure 89/48 L 88/40 L 122/63 Pulse Oximetry 96 05/16/21 06:00 Temperature 35.9 C L Pulse Rate 71 Respiratory Rate 18 Blood Pressure 92/52 L Pulse Oximetry 93 Intake/Output Intake/Output: Intake & Output 05/13/21 05/14/21 05/15/21 05/16/21 23:59 23:59 23:59 23:59 Intake Total 3100 3600 1800 Output Total 2000 2850 1600 Balance 1100 750 200 Meds/Results Medications: Active Medications Generic Name Dose Route Start Last Admin Trade Name Freq PRN Reason Stop Dose Admin Acetaminophen 650 mg 05/15/21 01:25 Acetaminophen 325 Mg Tablet PO Q6H PRN Mild Pain (1-3) Or Fever Aspirin 81 mg 05/15/21 08:00 05/15/21 08:24 Aspirin 81 Mg Chewable Tablet PO 81 mg DAILY@0800 PADMINI Administration Atorvastatin Calcium 40 mg 05/15/21 09:00 05/15/21 08:25 Atorvastatin 40 Mg Tablet PO 40 mg DAILY PADMINI Administration Bisacodyl 5 mg 05/15/21 09:00 05/15/21 17:16 Bisacodyl 5 Mg Tablet Ec PO 5 mg BID PADMINI Administration Buspirone HCl 10 mg 05/15/21 09:00 05/15/21 17:17 Buspirone Hcl 10 Mg Tablet PO 10 mg TID PADMINI Administration Carvedilol 12.5 mg 05/15/21 09:00 05/15/21 19:59 Carvedilol 12.5 Mg Tablet PO 12.5 mg Q12HR PADMINI Administration Diclofenac Sodium 75 mg 05/15/21 08:00 05/15/21 17:17 Diclofenac Sod 75 Mg Tablet.Ec PO 75 mg BIDWM PADMINI Administration Duloxetine HCl 60 mg 05/15/21 09:00 05/15/21 08:23 Duloxetine Hcl 60 Mg Capsule.Dr PO 60 mg DAILY PADMINI Administration Ferrous Sulfate 324 mg 05/15/21 08:00 05/15/21 08:25 Ferrous Sulfate 324 Mg Tablet PO 324 mg DAILY@0800 PADMINI Administration Piperacillin Sod/Tazobactam Sod 2.25 gm in 50 mls @ 100 mls/hr 05/15/21 00:00 05/16/21 06:21 Zosyn 2.25 Gm/D5w 50 Ml IVPB 100 mls/hr Q6HR PADMINI Administration Sodium Chloride 1,000 mls @ 80 mls/hr 05/14/21 17:15 05/16/21 02:57 Normal Saline Iv IV CONT 80 mls/hr .[id number] PADMINI Administration Loratadine 10 mg 05/15/21 09:00 05/15/21 08:25 Loratadine 10 Mg Tablet PO 10 mg QAM PADMINI Administration Mirtazapine 30 mg 05/15/21 21:00 05/15/21 19:59 Mirtazapine 30 Mg Tablet PO 30 mg HS PADMINI Administration Nabumetone 500 mg 05/15/21 08:00 05/15/21 08:23 Nabumetone 500 Mg Tablet PO 500 mg DAILY@0800 PADMINI Administration Oxycodone HCl 5 mg 05/15/21 00:56 05/15/21 08:28 Oxycodone Hcl (*Crx) 5 Mg Tab Ir PO 5 mg Q8H PRN Administration Pain Rated 7-10 Oxycodone/Acetaminophen 1 tablet 05/15/21 00:23 05/15/21 14:56 Oxycodone/Acetaminophen (*Crx) 5-325 Mg Tablet PO 1 tablet Q8H PRN Administration Pain Rated 7-10
[2021-05-16] MEDS: QUEtiapine FUMARATE 100 MG TABLET PO (08:57)
[2021-05-16] MEDS: PANTOPRAZOLE 40 MG TABLET PO (08:57)
[2021-05-16] MEDS: busPIRone HCL 10 MG TABLET PO (08:57)
[2021-05-16] MEDS: CHOLECALCIFEROL 1,000 UNITS TABLET 2000 UNITS PO (08:57)
[2021-05-16] MEDS: FERROUS SULFATE 324 MG TABLET PO (08:57)
[2021-05-16] MEDS: DICLOFENAC SOD 75 MG TABLET.EC PO (08:57)
[2021-05-16] MEDS: NABUMETONE 500 MG TABLET PO (08:57)
[2021-05-16] MEDS: DULoxetine HCL 60 MG CAPSULE.DR PO (08:57)
[2021-05-16] MEDS: ATORVASTATIN 40 MG TABLET PO (08:57)
[2021-05-16] MEDS: ASPIRIN 81 MG CHEWABLE TABLET PO (08:58)
[2021-05-16] MEDS: PREGABALIN (*CRX) 50 MG CAPSULE PO (08:58)
[2021-05-16] MEDS: LORATADINE 10 MG TABLET PO (08:58)
[2021-05-16] MEDS: BISACODYL 5 MG TABLET EC PO ×2 (08:58→17:37)
--- NOTE | 2021-05-16 09:42 | PCPTNOTE ---
Attempted PT evaluation this date. Pt declined due to pain, will attempt at a later date/time.
--- NOTE | 2021-05-16 09:49 | PCOTNOTE ---
Attempted OT evaluation this AM. Patient declined due to pain. Will continue to attempt.
--- NOTE | 2021-05-16 10:20 | PM.IMPN ---
Progress Note: A&P Assessment and Plan (1) Acute UTI: Code(s): N39.0 - Urinary tract infection, site not specified Status: Acute Assessment and Plan: Patient received ceftriaxone in the emergency room Cultures in progress Currently on Zosyn Deescalate antibiotics as needed Urine also positive for E coli (2) Acute renal insufficiency: Code(s): N28.9 - Disorder of kidney and ureter, unspecified Status: Acute Assessment and Plan: Likely secondary to hypotensive episode Holding lisinopril Holding Lasix IV fluid resuscitation on as needed Daily intake and output Renal failure continues to improve (3) History of implantable cardioverter-defibrillator (ICD) placement: Code(s): Z95.810 - Presence of automatic (implantable) cardiac defibrillator Status: Acute Assessment and Plan: Unchanged Continue to monitor (4) 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): Code(s): R52 - Pain, unspecified Status: Acute Assessment and Plan: Unchanged Continue to monitor Continue pain pump Continue home meds (5) S/P CABG (coronary artery bypass graft): Code(s): Z95.1 - Presence of aortocoronary bypass graft Status: Acute Assessment and Plan: Stable Continue to monitor (6) Hypotension: Code(s): I95.9 - Hypotension, unspecified Status: Acute Assessment and Plan: IV fluid resuscitation to continue Improved from admission (7) Anemia: Code(s): D64.9 - Anemia, unspecified Status: Acute Assessment and Plan: chronic hemoglobin at baseline noted (8) Hyponatremia: Code(s): E87.1 - Hypo-osmolality and hyponatremia Status: Acute Assessment and Plan: sodium level on admission is 121 baseline 134 improved to 125 with hydration will recheck it again this afternoon Continues to improve 131 today (9) Elevated liver enzymes: Code(s): R74.8 - Abnormal levels of other serum enzymes Status: Acute Assessment and Plan: AST ALT elevated. ALT elevation is new from previous lab results. CT abdomen with distended gallbladder Right upper quadrant ultrasound with acute acalculous cholecystitis Will keep NPO General surgery on board likely needs cholecystectomy or at least a cholecystostomy tube placement (10) Urinary retention: Code(s): R33.9 - Retention of urine, unspecified Status: Acute Assessment and Plan: status post Cedeno catheter placement likely from UTI associated bilateral hydronephrosis mild to moderate right mild left problem from bladder retention (11) Hydronephrosis: Code(s): N13.30 - Unspecified hydronephrosis Status: Acute Assessment and Plan: recheck renal ultrasound to ensure hydronephrosis resolved (12) Bacteremia: Code(s): R78.81 - Bacteremia Status: Acute Assessment and Plan: Gram-negative bacilli in anaerobic bottle currently on Zosyn await identification likely source urine Identified as E coli Urine also positive to bacteremia could be related to your tract infection underlying Also has acute acalculous cholecystitis. And/or calculous cholecystitis with passage of gallbladder stone LFT continues to improve Subjective Date/time seen: 05/16/21 10:20 Interval history: HPI:This is a 71-year-old female with past medical history significant for pain pump implanted, chronic pain syndrome, iron deficiency anemia, gastroesophageal reflux disease, hypertension, coronary artery disease, coronary artery bypass graft x3 vessel disease. Patient was brought in today to the emergency room after her home health nurse went in to check on her and her vitals were abnormal she had a blood pressure of systolic below 90 and diastolic below 60. Nurse immediately suggested to call an ambulance to bring her to the emergency room and patient called her son who brought her to the emergency. In emergency room pr
[2021-05-16] MEDS: ACETAMINOPHEN 325 MG TABLET 650 MG PO (17:37)
[2021-05-16] MEDS: QUEtiapine FUMARATE 100 MG TABLET 200 MG PO (20:55)
[2021-05-16] MEDS: carvediloL 12.5 MG TABLET PO (20:56)
[2021-05-16] MEDS: MIRTAZAPINE 30 MG TABLET PO (20:56)
[2021-05-17 06:00] VITALS: BP 99/49; PULSE 89; RESP 18; TEMP 37.1; O2SAT 94
[2021-05-17 06:35] LABS: Hematocrit 27.4 % (37.0-47.0); Mean Corpuscular HGB Conc 32.8 g/dl (32-36); Mean Corpuscular Hemoglobin 33.6 pg (26-34); Mean Corpuscular Volume 102.2 fl (80-100); Mean Platelet Volume 9.5 fl (7.4-10.4); Platelet Count Result 151 k/mm3 (150-375); Red Blood Count 2.68 M/mm3 (4.2-5.4); Red Cell Distribution Width 14.6 % (11.5-14.5); White Blood Count 9.3 K/mm3 (4.5-10.0)
[2021-05-17 06:55] LABS: Alanine Aminotransferase 94 U/L (4-35); Albumin Level 2.6 g/dL (3.5-5.1); Alkaline Phosphatase 101 U/L (38-126); Anion Gap 10 mmol/L (8-16); Aspartate Amino Transferase 45 U/L (14-36); Bilirubin,Total 0.5 mg/dL (0.2-1.3); Blood Urea Nitrogen 23 mg/dL (7-17); Calcium 8.1 mg/dL (8.4-10.2); Carbon Dioxide 17 mmol/L (22-30); Chloride 115 mmol/L (98-107); Estimated CRCL calculation 26 ml/min; Estimated Glomerular Filt Rate 34; Glucose 79 mg/dL (65-110); Potassium 3.5 mmol/L (3.4-5.0); Sodium 142 mmol/L (137-145)
--- NOTE | 2021-05-17 07:32 | PC.NURSE ---
Medications found on floor in patients room. Voltaren, and Lyrica. Medications undone on MAR as administered and documented as not given. Provider notified
[2021-05-17 07:39] LABS: Band Neutrophils Percent 3 % (0-6); Eosinophils Absolute Manual 0.09 K/mm3 (0.02-0.5); Eosinophils Percent Manual 1 % (0-4); Lymphocytes Absolute Manual 0.55 K/mm3 (1.1-4.5); Monocytes Absolute Manual 0.09 K/mm3 (0.1-0.90); Monocytes Percent Manual 1 % (3-9); Neutrophils Absolute Manual 8.55 K/mm3 (1.7-7.2); Neutrophils Percent Manual 89 % (46-73); Platelet Estimate Adequate (Adequate); Total Cells Counted 100
[2021-05-17 07:40] LABS: Anisocytosis 1+ (NORMAL); Hypochromasia 1+ (NORMAL)
[2021-05-17 08:00] VITALS: PULSE 89; RESP 18; O2SAT 94
[2021-05-17] MEDS: ASPIRIN 81 MG CHEWABLE TABLET PO (09:35)
[2021-05-17] MEDS: DICLOFENAC SOD 75 MG TABLET.EC PO ×2 (09:35→17:11)
[2021-05-17 09:36] VITALS: PULSE 88
[2021-05-17] MEDS: FERROUS SULFATE 324 MG TABLET PO (09:36)
[2021-05-17] MEDS: busPIRone HCL 10 MG TABLET PO ×3 (09:36→17:12)
[2021-05-17] MEDS: ATORVASTATIN 40 MG TABLET PO (09:36)
[2021-05-17] MEDS: carvediloL 12.5 MG TABLET PO ×2 (09:36→20:44)
[2021-05-17] MEDS: POTASSIUM CHLORIDE 20 MEQ TABLET.ER PO (09:37)
[2021-05-17] MEDS: NABUMETONE 500 MG TABLET PO (09:37)
[2021-05-17] MEDS: CHOLECALCIFEROL 1,000 UNITS TABLET 2000 UNITS PO (09:37)
[2021-05-17] MEDS: DULoxetine HCL 60 MG CAPSULE.DR PO (09:37)
[2021-05-17] MEDS: LORATADINE 10 MG TABLET PO (09:38)
[2021-05-17] MEDS: PANTOPRAZOLE 40 MG TABLET PO (09:38)
[2021-05-17] MEDS: SODIUM CHLORIDE 0.9% IV 1,000 ML 80 ML IV CONT ×2 (09:38→23:56)
[2021-05-17] MEDS: BISACODYL 5 MG TABLET EC PO ×2 (09:41→17:13)
[2021-05-17] MEDS: PREGABALIN (*CRX) 50 MG CAPSULE PO ×3 (09:41→17:08)
[2021-05-17] MEDS: QUEtiapine FUMARATE 100 MG TABLET PO (09:42)
[2021-05-17] MEDS: oxyCODONE HCL (*CRX) 5 MG TAB IR PO (10:24)
--- NOTE | 2021-05-17 10:34 | P.CDI_ITS ---
CDI Query Clarification Request -Sepsis and UTI documented by EDP -Urine and blood cultures both growing E coli -BP MAP 56 and creatinine 1.7 on arrival for SOFA 2 -Bacteremia documented with no more mention of sepsis Please clarify if sepsis was ruled in or ruled out. <Pippa Barfield RN - Last Filed: 05/18/21 05:54> Sepsis * Patient meet sepsis criteria * QSofa score is 1 which is not high risk * Sirs she did have some hypotension, blood and Urine cultures grew Ecoli, WBC boarder line at 11.3, lactic 0.9, known source of infection, she did have elevated liver enzymes. * IV antibiotics started upon arrival * Will need IV antibiotics for a total of five days and five days of oral <DG Miller - Last Filed: 05/18/21 15:36>
--- NOTE | 2021-05-17 11:23 | PM.PNGS ---
Progress Note: A&P Assessment and Plan (1) Chronic cholecystitis: Code(s): K81.1 - Chronic cholecystitis Status: Acute Assessment and Plan: US suggests acalculous cholecystitis. HIDA today showed low ejection fraction. Cystic duct patent. Okay to start advancing diet as tolerated to low fat. Discussed with patient. Continue to treat conservatively. (2) Ileus: Code(s): K56.7 - Ileus, unspecified Status: Acute Assessment and Plan: Improving. Will add miralax. Start advancing diet as tolerated. Additional Plan I have discussed the patient's case and plan of care with Dr. Lyman. Subjective Subjective Date/Time Seen: 05/17/21 11:23 Patient reports: no new complaints, pain is less, flatus, no bowel movement and afebrile Interval history: Patient seen this morning without any new complaints. Still has epigastric and lower abdominal pain, but feels it is somewhat better. Had some nausea earlier, but this has resolved. No vomiting. Feels bloated and has not had a BM since admission. Reports flatus. No other complaints at this time other than feeling hungry. Review of Systems Review of Systems: All systems reviewed & are unremarkable except as noted in HPI and below Exam Const: General: comfortable and no acute distress Orientation/consciousness: patient oriented x3 Resp: Effort & Inspection: normal respiratory effort Auscultation: clear to auscultation bilaterally Cardio: Rate: regular rate Rhythm: regular rhythm GI: Inspection: non-distended and other (LLQ pain pump palpable) GI Palp: Yes Soft to palpation, Yes Tenderness to palpation present (GI) (diffusely tender, no focal tenderness.), No Guarding due to palpation present (GI), No Rigid due to palpation and No Rebound tenderness present Auscultation: normal bowel sounds Skin: General skin exam: normal color Extrem: General: normal to inspection and no edema Psych: Mental Status: mental status grossly normal Judgement: Good judgement present (Psych) Objective Data Vital Signs Vital Signs: Vital Signs - 24 hr 05/16/21 14:00 05/16/21 15:43 05/16/21 20:56 Temperature 97.5 F L Pulse Rate 78 90 Respiratory Rate 16 Blood Pressure 88/48 L 102/58 L Pulse Oximetry 94 05/16/21 22:00 05/17/21 06:00 05/17/21 08:00 Temperature 97.6 F 98.7 F Pulse Rate 85 89 89 Respiratory Rate 18 18 18 Blood Pressure 104/52 L 99/49 L Pulse Oximetry 95 94 94 05/17/21 09:36 Temperature Pulse Rate 88 Respiratory Rate Blood Pressure Pulse Oximetry Intake/Output Intake/Output: Intake & Output 05/14/21 05/15/21 05/16/21 05/17/21 23:59 23:59 23:59 23:59 Intake Total 3100 3600 3950 1100 Output Total 2000 2850 4500 1800 Balance 1100 750 -550 -700 Meds/Results Medications: Active Medications Generic Name Dose Route Start Last Admin Trade Name Freq PRN Reason Stop Dose Admin Acetaminophen 650 mg 05/15/21 01:25 05/16/21 17:37 Acetaminophen 325 Mg Tablet PO 650 mg Q6H PRN Administration Mild Pain (1-3) Or Fever Aspirin 81 mg 05/15/21 08:00 05/17/21 09:35 Aspirin 81 Mg Chewable Tablet PO 81 mg DAILY@0800 PADMINI Administration Atorvastatin Calcium 40 mg 05/15/21 09:00 05/17/21 09:36 Atorvastatin 40 Mg Tablet PO 40 mg DAILY PADMINI Administration Bisacodyl 5 mg 05/15/21 09:00 05/17/21 09:41 Bisacodyl 5 Mg Tablet Ec PO 5 mg BID PADMINI Administration Buspirone HCl 10 mg 05/15/21 09:00 05/17/21 09:36 Buspirone Hcl 10 Mg Tablet PO 10 mg TID PADMINI Administration Carvedilol 12.5 mg 05/15/21 09:00 05/17/21 09:36 Carvedilol 12.5 Mg Tablet PO 12.5 mg Q12HR PADMINI Administration Diclofenac Sodium 75 mg 05/15/21 08:00 05/17/21 09:35 Diclofenac Sod 75 Mg Tablet.Ec PO 75 mg BIDWM PADMINI Administration Duloxetine HCl 60 mg 05/15/21 09:00 05/17/21 09:37 Duloxetine Hcl 60 Mg Capsule.Dr PO 60 mg DAILY PADMINI Administration Ferrous Sulfate 324 mg 10
[2021-05-17] MEDS: polyethylene glycoL 3350 17 GM POWD.PACK PO (12:08)
--- NOTE | 2021-05-17 13:35 | P.PNIM_ITS ---
Progress Note: A&P Assessment and Plan (1) Acute UTI: Code(s): N39.0 - Urinary tract infection, site not specified Status: Acute Assessment and Plan: * Patient received ceftriaxone in the emergency room * Cultures in progress * Currently on Zosyn * Deescalate antibiotics as needed * Urine also positive for E coli (2) Acute renal insufficiency: Code(s): N28.9 - Disorder of kidney and ureter, unspecified Status: Acute Assessment and Plan: * Likely secondary to hypotensive episode * Holding lisinopril * Holding Lasix * IV fluid resuscitation on as needed * Daily intake and output * Renal failure continues to improve (3) History of implantable cardioverter-defibrillator (ICD) placement: Code(s): Z95.810 - Presence of automatic (implantable) cardiac defibrillator Status: Acute Assessment and Plan: Unchanged Continue to monitor (4) Pain 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 patient-controlled analgesia (CAN DRYER): Code(s): R52 - Pain, unspecified Status: Acute Assessment and Plan: * Unchanged * Continue to monitor * Continue pain pump not loaded with narcotics according to the patient * Continue home meds * Roxicodone 5mg PO Q8hr, Percocet 5/325 1 tab Q8hr PRn (5) S/P CABG (coronary artery bypass graft): Code(s): Z95.1 - Presence of aortocoronary bypass graft Status: Acute Assessment and Plan: * Stable * Continue to monitor (6) Hypotension: Code(s): I95.9 - Hypotension, unspecified Status: Acute Assessment and Plan: * Current blood pressure 99/49 * IV fluid resuscitation to continue * Improved from admission * Continue to trend * Adjust medications as needed. (7) Anemia: Code(s): D64.9 - Anemia, unspecified Status: Acute Assessment and Plan: chronic hemoglobin at baseline noted (8) Hyponatremia: Code(s): E87.1 - Hypo-osmolality and hyponatremia Status: Acute Assessment and Plan: * sodium level on admission is 121 * baseline 134 * improved to 125 with hydration * Continues to improve 142 today (9) Elevated liver enzymes: Code(s): R74.8 - Abnormal levels of other serum enzymes Status: Acute Assessment and Plan: * AST ALT elevated 45/94 * CT abdomen with distended gallbladder * Right upper quadrant ultrasound with acute acalculous cholecystitis * Diet advanced per general surgery * General surgery going to treat conservatively at this time * HIDA scan showed lower side of normal EF of 35% * Continue to trend (10) Urinary retention: Code(s): R33.9 - Retention of urine, unspecified Status: Acute Assessment and Plan: * status post Cedeno catheter placement likely from UTI associated bilateral hydronephrosis * mild to moderate right mild left problem from bladder retention * Urology consult * Patient reports many problems with urination (11) Hydronephrosis: Code(s): N13.30 - Unspecified hydronephrosis Status: Acute Assessment and Plan: * recheck renal ultrasound to ensure hydronephrosis resolved (12) Bacteremia: Code(s): R78.81 - Bacteremia Status: Acute Assessment and Plan: * Identified as E coli * Urine also positive to bacteremia could be related to your tract infe
--- NOTE | 2021-05-17 13:35 | PM.IMPN ---
Progress Note: A&P Assessment and Plan (1) Acute UTI: Code(s): N39.0 - Urinary tract infection, site not specified Status: Acute Assessment and Plan: Patient received ceftriaxone in the emergency room Cultures in progress Currently on Zosyn Deescalate antibiotics as needed Urine also positive for E coli (2) Acute renal insufficiency: Code(s): N28.9 - Disorder of kidney and ureter, unspecified Status: Acute Assessment and Plan: Likely secondary to hypotensive episode Holding lisinopril Holding Lasix IV fluid resuscitation on as needed Daily intake and output Renal failure continues to improve (3) History of implantable cardioverter-defibrillator (ICD) placement: Code(s): Z95.810 - Presence of automatic (implantable) cardiac defibrillator Status: Acute Assessment and Plan: Unchanged Continue to monitor (4) Pain 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 patient-controlled analgesia (LOCAL SUPERINTENDENT): Code(s): R52 - Pain, unspecified Status: Acute Assessment and Plan: Unchanged Continue to monitor Continue pain pump not loaded with narcotics according to the patient Continue home meds Roxicodone 5mg PO Q8hr, Percocet 5/325 1 tab Q8hr PRn (5) S/P CABG (coronary artery bypass graft): Code(s): Z95.1 - Presence of aortocoronary bypass graft Status: Acute Assessment and Plan: Stable Continue to monitor (6) Hypotension: Code(s): I95.9 - Hypotension, unspecified Status: Acute Assessment and Plan: Current blood pressure 99/49 IV fluid resuscitation to continue Improved from admission Continue to trend Adjust medications as needed. (7) Anemia: Code(s): D64.9 - Anemia, unspecified Status: Acute Assessment and Plan: chronic hemoglobin at baseline noted (8) Hyponatremia: Code(s): E87.1 - Hypo-osmolality and hyponatremia Status: Acute Assessment and Plan: sodium level on admission is 121 baseline 134 improved to 125 with hydration Continues to improve 142 today (9) Elevated liver enzymes: Code(s): R74.8 - Abnormal levels of other serum enzymes Status: Acute Assessment and Plan: AST ALT elevated 45/94 CT abdomen with distended gallbladder Right upper quadrant ultrasound with acute acalculous cholecystitis Diet advanced per general surgery General surgery going to treat conservatively at this time HIDA scan showed lower side of normal EF of 35% Continue to trend (10) Urinary retention: Code(s): R33.9 - Retention of urine, unspecified Status: Acute Assessment and Plan: status post Cedeno catheter placement likely from UTI associated bilateral hydronephrosis mild to moderate right mild left problem from bladder retention Urology consult Patient reports many problems with urination (11) Hydronephrosis: Code(s): N13.30 - Unspecified hydronephrosis Status: Acute Assessment and Plan: recheck renal ultrasound to ensure hydronephrosis resolved (12) Bacteremia: Code(s): R78.81 - Bacteremia Status: Acute Assessment and Plan: Identified as E coli Urine also positive to bacteremia could be related to your tract infection underlying Also has acute acalculous cholecystitis. And/or calculous cholecystitis with passage of gallbladder stone LFT continues to improve Dr Baugh recommends 5 days of IV Ancef 2gm Q8hr following 5 days of oral Keflex 500mg for 5 days (13) Chronic cholecystitis: Code(s): K81.1 - Chronic cholecystitis Status: Acute Assessment and Plan: CT abdomen with distended gallbladder Right upper quadrant ultrasound with acute acalculous cholecystitis Diet advanced per general surgery General surgery going to treat conservatively at this time HIDA scan showed lower
[2021-05-17 14:20] VITALS: BP 114/61; PULSE 91; RESP 16; TEMP 36.4; O2SAT 97
--- NOTE | 2021-05-17 15:31 | PCOTNOTE ---
Attempted to see patient earlier this date, patient unavailable - in test. Patient unable to be attempted again this PM to see for OT. Will continue plan of care tomorrow, 05/18/21.
[2021-05-17] MEDS: oxyCODONE/ACETAMINOPHEN (*CRX) 5-325 MG TABLET 1 TABLET PO (17:10)
--- NOTE | 2021-05-17 18:41 | PCAUD ---
Talking with pt son, son stated pain pump is working, pt pump is filled with prialt (zioconotide).
[2021-05-17 20:44] VITALS: PULSE 82
[2021-05-17] MEDS: MIRTAZAPINE 30 MG TABLET PO (20:45)
[2021-05-17] MEDS: QUEtiapine FUMARATE 100 MG TABLET 200 MG PO (20:45)
[2021-05-17 22:00] VITALS: BP 127/64; PULSE 83; RESP 20; TEMP 36.2; O2SAT 98
[2021-05-18] VITALS (7 sets, daily range): BP systolic 126–143; BP diastolic 63–79; PULSE 78–92; RESP 16–18; TEMP 36.2–36.5; O2SAT 95–97
[2021-05-18] MEDS: oxyCODONE/ACETAMINOPHEN (*CRX) 5-325 MG TABLET 1 TABLET PO ×2 (06:19→15:30)
[2021-05-18 06:54] LABS: Basophils Absolute Auto 0.1 K/mm3 (0.0-0.1); Basophils Percent Auto 0.8 % (0.2-1.2); Eosinophils Absolute Auto 0.5 K/mm3 (0-0.3); Eosinophils Percent Auto 6.1 % (0-4.4); Hematocrit 30.1 % (37.0-47.0); Hemoglobin 9.9 g/dL (12.0-15.0); Immature Granulocyte Absolute 0.13 K/mm3 (0.00-0.031); Immature Granulocyte Percent A 1.7 % (0-0.5); Lymphocytes Percent Auto 6.5 % (18.3-44.2); Mean Corpuscular HGB Conc 32.9 g/dl (32-36); Mean Corpuscular Hemoglobin 33.9 pg (26-34); Mean Corpuscular Volume 103.1 fl (80-100); Mean Platelet Volume 9.4 fl (7.4-10.4); Monocytes Absolute Auto 0.7 K/mm3 (0.1-0.6); Monocytes Percent Auto 9.6 % (2.6-8.5); Neutrophils Absolute Auto 5.8 K/mm3 (1.3-6.7); Neutrophils Percent Auto 75.3 % (45.5-73.1); Platelet Count Result 146 k/mm3 (150-375); Red Blood Count 2.92 M/mm3 (4.2-5.4); Red Cell Distribution Width 15.2 % (11.5-14.5); White Blood Count 7.7 K/mm3 (4.5-10.0)
[2021-05-18 06:58] LABS: Alanine Aminotransferase 91 U/L (4-35); Albumin Level 2.8 g/dL (3.5-5.1); Alkaline Phosphatase 116 U/L (38-126); Anion Gap 10 mmol/L (8-16); Aspartate Amino Transferase 48 U/L (14-36); Bilirubin,Total 0.6 mg/dL (0.2-1.3); Blood Urea Nitrogen 18 mg/dL (7-17); Calcium 8.1 mg/dL (8.4-10.2); Carbon Dioxide 18 mmol/L (22-30); Chloride 114 mmol/L (98-107); Estimated CRCL calculation 28 ml/min; Estimated Glomerular Filt Rate 37; Glucose 93 mg/dL (65-110); Magnesium 1.8 mg/dL (1.6-2.3); Sodium 142 mmol/L (137-145)
[2021-05-18] MEDS: CHOLECALCIFEROL 1,000 UNITS TABLET 2000 UNITS PO (09:05)
[2021-05-18] MEDS: NABUMETONE 500 MG TABLET PO (09:05)
[2021-05-18] MEDS: ATORVASTATIN 40 MG TABLET PO (09:05)
[2021-05-18] MEDS: DULoxetine HCL 60 MG CAPSULE.DR PO (09:06)
[2021-05-18] MEDS: busPIRone HCL 10 MG TABLET PO ×3 (09:06→17:54)
[2021-05-18] MEDS: DICLOFENAC SOD 75 MG TABLET.EC PO ×2 (09:06→17:54)
[2021-05-18] MEDS: LORATADINE 10 MG TABLET PO (09:06)
[2021-05-18] MEDS: FERROUS SULFATE 324 MG TABLET PO (09:06)
[2021-05-18] MEDS: ASPIRIN 81 MG CHEWABLE TABLET PO (09:06)
[2021-05-18] MEDS: QUEtiapine FUMARATE 100 MG TABLET PO (09:06)
[2021-05-18] MEDS: carvediloL 12.5 MG TABLET PO ×2 (09:07→23:05)
[2021-05-18] MEDS: PANTOPRAZOLE 40 MG TABLET PO (09:07)
[2021-05-18] MEDS: polyethylene glycoL 3350 17 GM POWD.PACK PO (09:07)
[2021-05-18] MEDS: BISACODYL 5 MG TABLET EC PO (09:13)
[2021-05-18] MEDS: PREGABALIN (*CRX) 50 MG CAPSULE PO ×3 (09:13→17:56)
--- NOTE | 2021-05-18 11:30 | PM.IMPN ---
Progress Note: A&P Assessment and Plan (1) Acute UTI: Code(s): N39.0 - Urinary tract infection, site not specified Status: Acute Assessment and Plan: Patient received ceftriaxone in the emergency room Cultures found Ecoli Antibiotics changed to cefepime Deescalate antibiotics as needed Urine also positive for E coli (2) Acute renal insufficiency: Code(s): N28.9 - Disorder of kidney and ureter, unspecified Status: Acute Assessment and Plan: Likely secondary to hypotensive episode Holding lisinopril Holding Lasix IV fluid resuscitation on as needed Daily intake and output Renal failure continues to improve (3) History of implantable cardioverter-defibrillator (ICD) placement: Code(s): Z95.810 - Presence of automatic (implantable) cardiac defibrillator Status: Acute Assessment and Plan: Unchanged Continue to monitor (4) Pain 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 patient-controlled analgesia (AIRWORTHINESS SAFETY INSPECTOR): Code(s): R52 - Pain, unspecified Status: Acute Assessment and Plan: Unchanged Continue to monitor Continue pain pump not loaded with narcotics according to the patient Continue home meds Roxicodone 5mg PO Q8hr, Percocet 5/325 1 tab Q8hr PRn (5) S/P CABG (coronary artery bypass graft): Code(s): Z95.1 - Presence of aortocoronary bypass graft Status: Acute Assessment and Plan: Stable Continue to monitor (6) Hypotension: Code(s): I95.9 - Hypotension, unspecified Status: Acute Assessment and Plan: Current blood pressure 126/75 IV fluid resuscitation to continue Improved from admission Continue to trend Adjust medications as needed. (7) Anemia: Code(s): D64.9 - Anemia, unspecified Status: Acute Assessment and Plan: chronic hemoglobin at baseline noted H/H 9.9/30.1 (8) Hyponatremia: Code(s): E87.1 - Hypo-osmolality and hyponatremia Status: Acute Assessment and Plan: sodium level on admission is 121 baseline 134 Continues to improve 142 today (9) Elevated liver enzymes: Code(s): R74.8 - Abnormal levels of other serum enzymes Status: Acute Assessment and Plan: AST ALT elevated 48/91 CT abdomen with distended gallbladder Right upper quadrant ultrasound with acute acalculous cholecystitis Diet advanced: Low fat diet General surgery going to treat conservatively at this time HIDA scan showed lower side of normal EF of 35% Continue to trend (10) Urinary retention: Code(s): R33.9 - Retention of urine, unspecified Status: Acute Assessment and Plan: status post Cedeno catheter placement likely from UTI associated bilateral hydronephrosis mild to moderate right mild left problem from bladder retention Urology consult Renal duplex Voiding trail at [place] Patient reports many problems with urination (11) Hydronephrosis: Code(s): N13.30 - Unspecified hydronephrosis Status: Acute Assessment and Plan: recheck renal ultrasound to ensure hydronephrosis resolved (12) Bacteremia: Code(s): R78.81 - Bacteremia Status: Acute Assessment and Plan: Identified as E coli Urine also positive to bacteremia could be related to your tract infection underlying Also has acute acalculous cholecystitis. And/or calculous cholecystitis with passage of gallbladder stone LFT continues to improve Dr Baugh recommends 5 days of IV Cefepime 2gm Daily following 5 days of oral Keflex 500mg for 5 days (13) Chronic cholecystitis: Code(s): K81.1 - Chronic cholecystitis Status: Acute Assessment and Plan: CT abdomen with distended gallbladder Right upper quadrant ultrasound with acute acalculous cholecystitis Diet advanced per general surgery General surgery going to treat conservatively
--- NOTE | 2021-05-18 11:30 | P.PNIM_ITS ---
Progress Note: A&P Assessment and Plan (1) Acute UTI: Code(s): N39.0 - Urinary tract infection, site not specified Status: Acute Assessment and Plan: * Patient received ceftriaxone in the emergency room * Cultures found Ecoli * Antibiotics changed to cefepime * Deescalate antibiotics as needed * Urine also positive for E coli (2) Acute renal insufficiency: Code(s): N28.9 - Disorder of kidney and ureter, unspecified Status: Acute Assessment and Plan: * Likely secondary to hypotensive episode * Holding lisinopril * Holding Lasix * IV fluid resuscitation on as needed * Daily intake and output * Renal failure continues to improve (3) History of implantable cardioverter-defibrillator (ICD) placement: Code(s): Z95.810 - Presence of automatic (implantable) cardiac defibrillator Status: Acute Assessment and Plan: Unchanged Continue to monitor (4) Pain 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 patient-controlled analgesia (BORDER MEASURER AND CUTTER): Code(s): R52 - Pain, unspecified Status: Acute Assessment and Plan: * Unchanged * Continue to monitor * Continue pain pump not loaded with narcotics according to the patient * Continue home meds * Roxicodone 5mg PO Q8hr, Percocet 5/325 1 tab Q8hr PRn (5) S/P CABG (coronary artery bypass graft): Code(s): Z95.1 - Presence of aortocoronary bypass graft Status: Acute Assessment and Plan: * Stable * Continue to monitor (6) Hypotension: Code(s): I95.9 - Hypotension, unspecified Status: Acute Assessment and Plan: * Current blood pressure 126/75 * IV fluid resuscitation to continue * Improved from admission * Continue to trend * Adjust medications as needed. (7) Anemia: Code(s): D64.9 - Anemia, unspecified Status: Acute Assessment and Plan: * chronic hemoglobin at baseline noted * H/H 9.9/30.1 (8) Hyponatremia: Code(s): E87.1 - Hypo-osmolality and hyponatremia Status: Acute Assessment and Plan: * sodium level on admission is 121 * baseline 134 * Continues to improve 142 today (9) Elevated liver enzymes: Code(s): R74.8 - Abnormal levels of other serum enzymes Status: Acute Assessment and Plan: * AST ALT elevated 48/91 * CT abdomen with distended gallbladder * Right upper quadrant ultrasound with acute acalculous cholecystitis * Diet advanced: Low fat diet * General surgery going to treat conservatively at this time * HIDA scan showed lower side of normal EF of 35% * Continue to trend (10) Urinary retention: Code(s): R33.9 - Retention of urine, unspecified Status: Acute Assessment and Plan: * status post Cedeno catheter placement likely from UTI associated bilateral hydronephrosis * mild to moderate right mild left problem from bladder retention * Urology consult * Renal duplex * Voiding trail at [place] * Patient reports many problems with urination (11) Hydronephrosis: Code(s): N13.30 - Unspecified hydronephrosis Status: Acute Assessment and Plan: * recheck renal ultrasound to ensure hydronephrosis resolved (12) Bacteremia: Code(s): R78.81 - Bacteremia Status: Acute Assessment and Plan: * Identified as E coli * Urine al
--- NOTE | 2021-05-18 11:54 | WPDURCON ---
Assessment and Plan Assessment and plan (1) MARK (acute kidney injury): Code(s): N17.9 - Acute kidney failure, unspecified Status: Acute Assessment and Plan: Slightly elevated, will likely improved since catheter has been placed. Will repeat a JAZMIN to ensure resolution of hydro. (2) Bacteremia: Code(s): R78.81 - Bacteremia Status: Acute Assessment and Plan: Continue Cefepime. (3) Urinary retention: Code(s): R33.9 - Retention of urine, unspecified Status: Acute Assessment and Plan: Keep mejía in until discharge, ok to do a voiding trial s/p discharge, if unable to urinate or if she has >250cc of urine on bladder scan, replace mejía. She should f/u in our office either way for further evaluation with a urodynamics study, possible neurogenic bladder. Urology Consult Note HPI Date Seen: 05/18/21 Requesting Physician: Sinai Reynolds MD Primary Care Provider: Gerard Rahman DO Consult Narrative Narrative: Domonique Gonzales is a 71 year old female who presented to the ER on 05/14/2021 for weakness and hypotension noted on exam by her home health nurse. Throughout the course of admission she was found to have urinary retention and had a noted 2L of urine in her bladder after mejía insertion. her JAZMIN on 05/16/2021 shows bilateral hydronephrosis. She has a WBC of 7.7 and a creatinine of 1.40. Her urine and blood cultures grew E-Coli from 05/14/2021 and are sensitive to Cefepime which she has been on for 2 days. Her catheter is draining to gravity with clear yellow urine. She is a known patient of our practice from years ago (2011) that was seen for incomplete emptying. She hasn't been seen since. She states that she hasn't had urinary problems until 5 days ago and denies previous difficulty with urination. She states she does have frequency q1 hour daily and doesn't get up at night at all, but denies incontinence. She denies chronic UTI's, dysuria or hematuria. Review of Systems Cardiovascular: Cardiovascular: Denies chest pain Respiratory: Respiratory: Reports no additional respiratory complaints Gastrointestinal: Gastrointestinal: Denies abdominal pain, Denies nausea and Denies vomiting Genitourinary: Genitourinary: Denies hematuria, Reports nocturia, Denies dysuria, Denies pelvic pain, Denies flank pain, Denies urinary incontinence and Denies urinary urgency PMFSH Past Medical History Medical History Anemia, unspecified Anxiety Cervical fusion syndrome Chronic pain Hyperlipidemia Hyponatremia Pain 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 patient-controlled analgesia (PRESCHOOL AIDE) Serum potassium elevated Surgical History Surgical History Cataract extraction status H/O abdominal hysterectomy H/O colonoscopy H/O laminectomy H/O lumbar discectomy H/O Spinal surgery History of bilateral hip arthroplasty I am not sure if they replaced or repaired Hx of cholecystectomy S/P CABG (coronary artery bypass graft) S/P CABG x 3 Family History Family History Mother Depression Cerebrovascular accident Sibling Depression Father Cerebrovascular accident, Onset Age: 83 Family history of coronary artery disease Patient's father is Other Diabetes mellitus Family history of arthritis Hypertension Social History Social History Social History: The patient tells me that she recently quit smoking. She denies any alcohol except she does occasionally have a beer 2. She has 2 sons. She is disabled. She desires to be a full code. She says her sons are the durable power bankruptcy attorney for healthcare. She is . Smoking packs per day: 0.5 Smoking cigarettes per day: 10.0 Years smoked: 30 Smoking pack-years: 15.00 Smoking status: Former smoker Second hand tob
--- NOTE | 2021-05-18 12:02 | PM.PNGS ---
Progress Note: A&P Assessment and Plan (1) Chronic cholecystitis: Code(s): K81.1 - Chronic cholecystitis Status: Acute Assessment and Plan: Tolerating the low fat diet but still having some abdominal pain. Could be related to her bowels as well, will try to stimulate further today. We would recommend to continue to treat conservatively and follow a low fat diet for now. Could consider an interval cholecystectomy as an outpatient. F/u in [address] Lyman to further discuss surgery. Will sign off at this time. Call with any future surgical concerns. (2) Ileus: Code(s): K56.7 - Ileus, unspecified Status: Acute Assessment and Plan: Improving. Continue Miralax, add dulcolax supp. Additional Plan I have discussed the patient's case and plan of care with Dr. Lyman. Subjective Subjective Date/Time Seen: 05/18/21 10:02 Patient reports: still having pain (mostly in the upper abdomen), flatus, no bowel movement, nausea and afebrile Interval history: Patient seen this morning and still having epigastric abdominal pain. She reports also nausea and bloating, but no vomiting. She feels she is doing okay with her diet but she feels like eating is aggravating her pain. She also reports being constipated without having a BM since admission. No other complaints at this time. Review of Systems Review of Systems: All systems reviewed & are unremarkable except as noted in HPI and below Exam Const: General: cooperative, comfortable and no acute distress Orientation/consciousness: patient oriented x3 Resp: Effort & Inspection: normal respiratory effort Auscultation: clear to auscultation bilaterally Cardio: Rate: regular rate Rhythm: regular rhythm GI: Inspection: non-distended and other (LLQ pain pump palpable) GI Palp: Yes Soft to palpation, Yes Tenderness to palpation present (GI) (diffusely tender, states it is worse in the epigastric area), No Guarding due to palpation present (GI), No Rigid due to palpation and No Rebound tenderness present Auscultation: normal bowel sounds Neuro: General: moves all extremities and no focal motor deficits Extrem: General: no edema Psych: Mental Status: mental status grossly normal Judgement: Good judgement present (Psych) Objective Data Vital Signs Vital Signs: Vital Signs - 24 hr 05/17/21 14:20 05/17/21 20:44 05/17/21 22:00 Temperature 97.6 F 97.2 F L Pulse Rate 91 82 83 Respiratory Rate 16 20 Blood Pressure 114/61 127/64 Pulse Oximetry 97 98 05/18/21 06:00 05/18/21 09:07 Temperature 97.7 F Pulse Rate 78 86 Respiratory Rate 16 Blood Pressure 128/63 Pulse Oximetry 95 Intake/Output Intake/Output: Intake & Output 05/15/21 05/16/21 05/17/21 05/18/21 23:59 23:59 23:59 23:59 Intake Total 3600 3950 3620 600 Output Total 2850 4500 4400 1300 Balance 786 -777 -655 -692 Meds/Results Medications: Active Medications Generic Name Dose Route Start Last Admin Trade Name Freq PRN Reason Stop Dose Admin Acetaminophen 650 mg 05/15/21 01:25 05/16/21 17:37 Acetaminophen 325 Mg Tablet PO 650 mg Q6H PRN Administration Mild Pain (1-3) Or Fever Aspirin 81 mg 05/15/21 08:00 05/18/21 09:06 Aspirin 81 Mg Chewable Tablet PO 81 mg DAILY@0800 PADMINI Administration Atorvastatin Calcium 40 mg 05/15/21 09:00 05/18/21 09:05 Atorvastatin 40 Mg Tablet PO 40 mg DAILY PADMINI Administration Bisacodyl 5 mg 05/15/21 09:00 05/18/21 09:13 Bisacodyl 5 Mg Tablet Ec PO 5 mg BID PADMINI Administration Buspirone HCl 10 mg 05/15/21 09:00 05/18/21 09:06 Buspirone Hcl 10 Mg Tablet PO 10 mg TID PADMINI Administration Carvedilol 12.5 mg 05/15/21 09:00 05/18/21 09:07 Carvedilol 12.5 Mg Tablet PO 12.5 mg Q12HR PADMINI Administration Diclofenac Sodium 75 mg 05/15/21 08:00 05/18/21 09:06 Diclofenac Sod 75 Mg Tablet.Ec PO 75 mg BIDWM PADMINI Administration Duloxetine HCl 60 mg 05/15/21 09:00
[2021-05-18] MEDS: BISACODYL 10 MG SUPPOSITORY RECTAL (12:35)
[2021-05-18] MEDS: SODIUM CHLORIDE 0.9% IV 1,000 ML 80 ML IV CONT (13:22)
--- NOTE | 2021-05-18 13:33 | PCPTNOTE ---
Attempted to see patient for PT at this time, however patient declined. Patient reported she is too worn out today and she will do therapy tomorrow.
[2021-05-18] MEDS: oxyCODONE HCL (*CRX) 5 MG TAB IR PO (15:31)
[2021-05-18] MEDS: ACETAMINOPHEN 325 MG TABLET 650 MG PO (23:02)
[2021-05-18] MEDS: QUEtiapine FUMARATE 100 MG TABLET 200 MG PO (23:03)
[2021-05-18] MEDS: MIRTAZAPINE 30 MG TABLET PO (23:04)
[2021-05-19] MEDS: SODIUM CHLORIDE 0.9% IV 1,000 ML 80 ML IV CONT (05:46)
[2021-05-19 06:00] VITALS: BP 112/71; PULSE 83; RESP 18; TEMP 36; O2SAT 97
[2021-05-19 06:23] LABS: Basophils Percent Auto 0.5 % (0.2-1.2); Eosinophils Absolute Auto 0.3 K/mm3 (0-0.3); Eosinophils Percent Auto 4.2 % (0-4.4); Hematocrit 31.2 % (37.0-47.0); Hemoglobin 10.3 g/dL (12.0-15.0); Immature Granulocyte Absolute 0.14 K/mm3 (0.00-0.031); Immature Granulocyte Percent A 1.8 % (0-0.5); Lymphocytes Absolute Auto 0.67 K/mm3 (0.9-3.2); Lymphocytes Percent Auto 8.5 % (18.3-44.2); Mean Corpuscular Hemoglobin 33.4 pg (26-34); Mean Corpuscular Volume 101.3 fl (80-100); Mean Platelet Volume 10.1 fl (7.4-10.4); Monocytes Absolute Auto 0.7 K/mm3 (0.1-0.6); Monocytes Percent Auto 9.4 % (2.6-8.5); Neutrophils Absolute Auto 5.9 K/mm3 (1.3-6.7); Neutrophils Percent Auto 75.6 % (45.5-73.1); Platelet Count Result 164 k/mm3 (150-375); Red Blood Count 3.08 M/mm3 (4.2-5.4); Red Cell Distribution Width 15.5 % (11.5-14.5); White Blood Count 7.8 K/mm3 (4.5-10.0)
[2021-05-19 06:43] LABS: Alanine Aminotransferase 90 U/L (4-35); Albumin Level 2.8 g/dL (3.5-5.1); Alkaline Phosphatase 108 U/L (38-126); Anion Gap 8 mmol/L (8-16); Aspartate Amino Transferase 57 U/L (14-36); Bilirubin,Total 0.5 mg/dL (0.2-1.3); Blood Urea Nitrogen 17 mg/dL (7-17); Calcium 8.4 mg/dL (8.4-10.2); Carbon Dioxide 18 mmol/L (22-30); Chloride 115 mmol/L (98-107); Estimated CRCL calculation 30 ml/min; Estimated Glomerular Filt Rate 41; Glucose 88 mg/dL (65-110); Magnesium 1.8 mg/dL (1.6-2.3); Potassium 4.2 mmol/L (3.4-5.0); Sodium 141 mmol/L (137-145)
[2021-05-19] MEDS: ACETAMINOPHEN 325 MG TABLET 650 MG PO (06:46)
[2021-05-19] MEDS: LORATADINE 10 MG TABLET PO (09:03)
[2021-05-19] MEDS: PREGABALIN (*CRX) 50 MG CAPSULE PO ×3 (09:04→16:46)
[2021-05-19] MEDS: busPIRone HCL 10 MG TABLET PO ×3 (09:04→16:46)
[2021-05-19] MEDS: DULoxetine HCL 60 MG CAPSULE.DR PO (09:04)
[2021-05-19] MEDS: QUEtiapine FUMARATE 100 MG TABLET PO (09:04)
[2021-05-19] MEDS: POTASSIUM CHLORIDE 20 MEQ TABLET.ER PO (09:04)
[2021-05-19] MEDS: ASPIRIN 81 MG CHEWABLE TABLET PO (09:04)
[2021-05-19 09:05] VITALS: PULSE 84
[2021-05-19] MEDS: carvediloL 12.5 MG TABLET PO ×2 (09:05→20:35)
[2021-05-19] MEDS: FERROUS SULFATE 324 MG TABLET PO (09:05)
[2021-05-19] MEDS: CHOLECALCIFEROL 1,000 UNITS TABLET 2000 UNITS PO (09:05)
[2021-05-19] MEDS: DICLOFENAC SOD 75 MG TABLET.EC PO ×2 (09:05→16:46)
[2021-05-19] MEDS: ATORVASTATIN 40 MG TABLET PO (09:05)
[2021-05-19] MEDS: PANTOPRAZOLE 40 MG TABLET PO (09:05)
[2021-05-19] MEDS: NABUMETONE 500 MG TABLET PO (09:07)
[2021-05-19] MEDS: polyethylene glycoL 3350 17 GM POWD.PACK PO (09:07)
[2021-05-19 10:05] VITALS: O2SAT 94
--- NOTE | 2021-05-19 13:00 | P.PNIM_ITS ---
Progress Note: A&P Assessment and Plan (1) Acute UTI: Code(s): N39.0 - Urinary tract infection, site not specified Status: Acute Assessment and Plan: * Patient received ceftriaxone in the emergency room * Cultures found Ecoli * Antibiotics changed to cefepime * Deescalate antibiotics as needed * Urine also positive for E coli (2) Acute renal insufficiency: Code(s): N28.9 - Disorder of kidney and ureter, unspecified Status: Acute Assessment and Plan: * Likely secondary to hypotensive episode * Holding lisinopril * Holding Lasix * IV fluid resuscitation on as needed * Daily intake and output * Renal failure continues to improve (3) History of implantable cardioverter-defibrillator (ICD) placement: Code(s): Z95.810 - Presence of automatic (implantable) cardiac defibrillator Status: Acute Assessment and Plan: Unchanged Continue to monitor (4) Pain 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 patient-controlled analgesia (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): Code(s): R52 - Pain, unspecified Status: Acute Assessment and Plan: * Unchanged * Continue to monitor * Continue pain pump not loaded with narcotics according to the patient * Continue home meds * Roxicodone 5mg PO Q8hr, Percocet 5/325 1 tab Q8hr PRn (5) S/P CABG (coronary artery bypass graft): Code(s): Z95.1 - Presence of aortocoronary bypass graft Status: Acute Assessment and Plan: * Stable * Continue to monitor (6) Hypotension: Code(s): I95.9 - Hypotension, unspecified Status: Acute Assessment and Plan: * Current blood pressure 112/71 * IV fluid resuscitation to continue * Improved from admission * Continue to trend * Adjust medications as needed. (7) Anemia: Code(s): D64.9 - Anemia, unspecified Status: Acute Assessment and Plan: * chronic hemoglobin at baseline noted * H/H 10.3/31.2 (8) Hyponatremia: Code(s): E87.1 - Hypo-osmolality and hyponatremia Status: Acute Assessment and Plan: * sodium level on admission is 121 * baseline 134 * Continues to improve 141 today (9) Elevated liver enzymes: Code(s): R74.8 - Abnormal levels of other serum enzymes Status: Acute Assessment and Plan: * AST ALT elevated 57/90 * CT abdomen with distended gallbladder * Right upper quadrant ultrasound with acute acalculous cholecystitis * Diet advanced: Low fat diet * General surgery going to treat conservatively at this time * HIDA scan showed lower side of normal EF of 35% * Continue to trend (10) Urinary retention: Code(s): R33.9 - Retention of urine, unspecified Status: Acute Assessment and Plan: * status post Cedeno catheter placement likely from UTI associated bilateral hydronephrosis * mild to moderate right mild left problem from bladder retention * Urology consult * Renal duplex * Voiding trail at [place] * Patient reports many problems with urination (11) Hydronephrosis: Code(s): N13.30 - Unspecified hydronephrosis Status: Acute Assessment and Plan: * recheck renal ultrasound to ensure hydronephrosis resolved (12) Bacteremia: Code(s): R78.81 - Bacteremia Status: Acute Assessment and Plan: * Identified as E coli * Urine a
--- NOTE | 2021-05-19 13:00 | PM.IMPN ---
Progress Note: A&P Assessment and Plan (1) Acute UTI: Code(s): N39.0 - Urinary tract infection, site not specified Status: Acute Assessment and Plan: Patient received ceftriaxone in the emergency room Cultures found Ecoli Antibiotics changed to cefepime Deescalate antibiotics as needed Urine also positive for E coli (2) Acute renal insufficiency: Code(s): N28.9 - Disorder of kidney and ureter, unspecified Status: Acute Assessment and Plan: Likely secondary to hypotensive episode Holding lisinopril Holding Lasix IV fluid resuscitation on as needed Daily intake and output Renal failure continues to improve (3) History of implantable cardioverter-defibrillator (ICD) placement: Code(s): Z95.810 - Presence of automatic (implantable) cardiac defibrillator Status: Acute Assessment and Plan: Unchanged Continue to monitor (4) Pain 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 patient-controlled analgesia (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): Code(s): R52 - Pain, unspecified Status: Acute Assessment and Plan: Unchanged Continue to monitor Continue pain pump not loaded with narcotics according to the patient Continue home meds Roxicodone 5mg PO Q8hr, Percocet 5/325 1 tab Q8hr PRn (5) S/P CABG (coronary artery bypass graft): Code(s): Z95.1 - Presence of aortocoronary bypass graft Status: Acute Assessment and Plan: Stable Continue to monitor (6) Hypotension: Code(s): I95.9 - Hypotension, unspecified Status: Acute Assessment and Plan: Current blood pressure 112/71 IV fluid resuscitation to continue Improved from admission Continue to trend Adjust medications as needed. (7) Anemia: Code(s): D64.9 - Anemia, unspecified Status: Acute Assessment and Plan: chronic hemoglobin at baseline noted H/H 10.3/31.2 (8) Hyponatremia: Code(s): E87.1 - Hypo-osmolality and hyponatremia Status: Acute Assessment and Plan: sodium level on admission is 121 baseline 134 Continues to improve 141 today (9) Elevated liver enzymes: Code(s): R74.8 - Abnormal levels of other serum enzymes Status: Acute Assessment and Plan: AST ALT elevated 57/90 CT abdomen with distended gallbladder Right upper quadrant ultrasound with acute acalculous cholecystitis Diet advanced: Low fat diet General surgery going to treat conservatively at this time HIDA scan showed lower side of normal EF of 35% Continue to trend (10) Urinary retention: Code(s): R33.9 - Retention of urine, unspecified Status: Acute Assessment and Plan: status post Cedeno catheter placement likely from UTI associated bilateral hydronephrosis mild to moderate right mild left problem from bladder retention Urology consult Renal duplex Voiding trail at [place] Patient reports many problems with urination (11) Hydronephrosis: Code(s): N13.30 - Unspecified hydronephrosis Status: Acute Assessment and Plan: recheck renal ultrasound to ensure hydronephrosis resolved (12) Bacteremia: Code(s): R78.81 - Bacteremia Status: Acute Assessment and Plan: Identified as E coli Urine also positive to bacteremia could be related to your tract infection underlying Also has acute acalculous cholecystitis. And/or calculous cholecystitis with passage of gallbladder stone LFT continues to improve Dr Baugh recommends 5 days of IV Cefepime 2gm Daily following 5 days of oral Keflex 500mg for 5 days (13) Chronic cholecystitis: Code(s): K81.1 - Chronic cholecystitis Status: Acute Assessment and Plan: CT abdomen with distended gallbladder Right upper quadrant ultrasound with acute acalculous cholecystitis Diet advanced per general surgery General surgery going to treat conservatively
--- NOTE | 2021-05-19 13:07 | WPDUROPN2 ---
Progress Note: A&P Assessment and Plan (1) MARK (acute kidney injury): Code(s): N17.9 - Acute kidney failure, unspecified Status: Acute Assessment and Plan: Creatinine stable at 1.3. (2) Sepsis: Code(s): A41.9 - Sepsis, unspecified organism Status: Acute Assessment and Plan: Improving (3) Bacteremia: Code(s): R78.81 - Bacteremia Status: Acute (4) Hydronephrosis: Code(s): N13.30 - Unspecified hydronephrosis Status: Acute Assessment and Plan: Resolved on repeat JAZMIN. (5) Urinary retention: Code(s): R33.9 - Retention of urine, unspecified Status: Acute Assessment and Plan: Keep mejía in until day of discharge then perform a voiding trial, if PVR is >250cc on bladder scan, re-insert mejía and f/u in our office. Start Tamsulosin and continue it. Subjective Subjective Date/Time Seen: 05/19/21 13:07 Retention, Bilateral hydro and UTI. Catheter draining to gravity with clear yellow urine. Doing well on IV antibiotics to treat sepsis. Review of Systems Cardiovascular: Cardiovascular: Denies chest pain Respiratory: Respiratory: Reports no additional respiratory complaints Gastrointestinal: Gastrointestinal: Reports abdominal pain, Denies nausea and Denies vomiting Genitourinary: Genitourinary: Denies hematuria, Denies dysuria and Denies flank pain Exam Resp: Effort & Inspection: normal respiratory effort Cardio: Rate: regular rate GI: GI Palp: Yes Soft to palpation and Yes Tenderness to palpation present (GI) (bilateral lower quadrants) : General: Yes no CVA tenderness Urinary Catheter: Urinary Catheter: patent and draining and urine clear Extrem: General: edema (pain and edema noted on exam) bilateral Objective Data Vital Signs Vital Signs: Vital Signs - 24 hr 05/18/21 14:00 05/18/21 20:00 05/18/21 21:53 Temperature 97.7 F 97.2 F L Pulse Rate 80 92 Respiratory Rate 18 18 Blood Pressure 126/75 143/79 H Pulse Oximetry 97 95 95 05/18/21 23:05 05/19/21 06:00 05/19/21 09:05 Temperature 96.8 F L Pulse Rate 80 83 84 Respiratory Rate 18 Blood Pressure 112/71 Pulse Oximetry 97 05/19/21 10:05 Temperature Pulse Rate Respiratory Rate Blood Pressure Pulse Oximetry 94 Intake/Output Intake/Output: Intake & Output 05/16/21 05/17/21 05/18/21 05/19/21 23:59 23:59 23:59 23:59 Intake Total 3950 3620 2610 1250 Output Total 4500 4400 2650 1800 Balance -550 -780 -40 -550 Meds/Results Medications: Active Medications Generic Name Dose Route Start Last Admin Trade Name Freq PRN Reason Stop Dose Admin Acetaminophen 650 mg 05/15/21 01:25 05/19/21 06:46 Acetaminophen 325 Mg Tablet PO 650 mg Q6H PRN Administration Mild Pain (1-3) Or Fever Aspirin 81 mg 05/15/21 08:00 05/19/21 09:04 Aspirin 81 Mg Chewable Tablet PO 81 mg DAILY@0800 PADMINI Administration Atorvastatin Calcium 40 mg 05/15/21 09:00 05/19/21 09:05 Atorvastatin 40 Mg Tablet PO 40 mg DAILY PADMINI Administration Buspirone HCl 10 mg 05/15/21 09:00 05/19/21 09:04 Buspirone Hcl 10 Mg Tablet PO 10 mg TID PADMINI Administration Carvedilol 12.5 mg 05/15/21 09:00 05/19/21 09:05 Carvedilol 12.5 Mg Tablet PO 12.5 mg Q12HR PADMINI Administration Diclofenac Sodium 75 mg 05/15/21 08:00 05/19/21 09:05 Diclofenac Sod 75 Mg Tablet.Ec PO 75 mg BIDWM PADMINI Administration Duloxetine HCl 60 mg 05/15/21 09:00 05/19/21 09:04 Duloxetine Hcl 60 Mg Capsule.Dr PO 60 mg DAILY PADMINI Administration Ferrous Sulfate 324 mg 05/15/21 08:00 05/19/21 09:05 Ferrous Sulfate 324 Mg Tablet PO 324 mg DAILY@0800 PADMINI Administration Sodium Chloride 1,000 mls @ 80 mls/hr 05/14/21 17:15 05/19/21 05:46 Normal Saline Iv IV CONT 80 mls/hr .[id number] PADMINI Administration Cefepime HCl 2 gm in 50 mls @ 100 mls/hr 05/17/21 14:53 05/19/21 09:31 Maxipime 2 Gm/D5w 50 Ml IVPB Infused
[2021-05-19] MEDS: oxyCODONE HCL (*CRX) 5 MG TAB IR PO ×2 (13:20→21:03)
[2021-05-19] MEDS: oxyCODONE/ACETAMINOPHEN (*CRX) 5-325 MG TABLET 1 TABLET PO ×2 (13:20→21:04)
[2021-05-19 14:00] VITALS: BP 123/61; PULSE 89; RESP 16; TEMP 36.4; O2SAT 96
[2021-05-19] MEDS: GABAPENTIN 100 MG CAPSULE 200 MG PO (16:45)
[2021-05-19] MEDS: FUROSEMIDE INJ 40 MG/4 ML VIAL IV PUSH (16:45)
[2021-05-19 20:35] VITALS: PULSE 91
[2021-05-19] MEDS: QUEtiapine FUMARATE 100 MG TABLET 200 MG PO (20:35)
[2021-05-19] MEDS: MIRTAZAPINE 30 MG TABLET PO (20:35)
[2021-05-19 22:00] VITALS: BP 150/88; PULSE 90; RESP 16; TEMP 36.4; O2SAT 98
[2021-05-20 06:00] VITALS: BP 141/69; PULSE 88; RESP 18; TEMP 36.6; O2SAT 98
[2021-05-20] MEDS: ACETAMINOPHEN 325 MG TABLET 650 MG PO (06:20)
[2021-05-20 06:39] LABS: Basophils Absolute Auto 0.1 K/mm3 (0.0-0.1); Basophils Percent Auto 0.8 % (0.2-1.2); Eosinophils Absolute Auto 0.3 K/mm3 (0-0.3); Eosinophils Percent Auto 3.3 % (0-4.4); Hematocrit 30.7 % (37.0-47.0); Immature Granulocyte Absolute 0.19 K/mm3 (0.00-0.031); Lymphocytes Absolute Auto 0.94 K/mm3 (0.9-3.2); Lymphocytes Percent Auto 9.9 % (18.3-44.2); Mean Corpuscular HGB Conc 32.6 g/dl (32-36); Mean Corpuscular Hemoglobin 32.7 pg (26-34); Mean Corpuscular Volume 100.3 fl (80-100); Mean Platelet Volume 10.2 fl (7.4-10.4); Monocytes Absolute Auto 0.8 K/mm3 (0.1-0.6); Monocytes Percent Auto 7.9 % (2.6-8.5); Neutrophils Absolute Auto 7.2 K/mm3 (1.3-6.7); Neutrophils Percent Auto 76.1 % (45.5-73.1); Platelet Count Result 184 k/mm3 (150-375); Red Blood Count 3.06 M/mm3 (4.2-5.4); Red Cell Distribution Width 15.1 % (11.5-14.5); White Blood Count 9.5 K/mm3 (4.5-10.0)
[2021-05-20 06:52] LABS: Alanine Aminotransferase 89 U/L (4-35); Albumin Level 2.9 g/dL (3.5-5.1); Alkaline Phosphatase 107 U/L (38-126); Anion Gap 9 mmol/L (8-16); Aspartate Amino Transferase 57 U/L (14-36); Bilirubin,Total 0.5 mg/dL (0.2-1.3); Blood Urea Nitrogen 19 mg/dL (7-17); Calcium 8.6 mg/dL (8.4-10.2); Carbon Dioxide 22 mmol/L (22-30); Chloride 109 mmol/L (98-107); Estimated CRCL calculation 25 ml/min; Estimated Glomerular Filt Rate 32; Glucose 83 mg/dL (65-110); Magnesium 1.6 mg/dL (1.6-2.3); Sodium 140 mmol/L (137-145)
[2021-05-20] MEDS: PREGABALIN (*CRX) 50 MG CAPSULE PO ×3 (09:05→17:39)
[2021-05-20] MEDS: oxyCODONE HCL (*CRX) 5 MG TAB IR PO ×2 (09:05→20:36)
[2021-05-20] MEDS: PANTOPRAZOLE 40 MG TABLET PO (09:05)
[2021-05-20] MEDS: DULoxetine HCL 60 MG CAPSULE.DR PO (09:05)
[2021-05-20] MEDS: oxyCODONE/ACETAMINOPHEN (*CRX) 5-325 MG TABLET 1 TABLET PO (09:06)
[2021-05-20 09:07] VITALS: PULSE 92
[2021-05-20] MEDS: busPIRone HCL 10 MG TABLET PO ×3 (09:07→17:39)
[2021-05-20] MEDS: TAMSULOSIN HCL 0.4 MG CAPSULE PO (09:07)
[2021-05-20] MEDS: QUEtiapine FUMARATE 100 MG TABLET PO (09:07)
[2021-05-20] MEDS: carvediloL 12.5 MG TABLET PO ×2 (09:07→20:42)
[2021-05-20] MEDS: FERROUS SULFATE 324 MG TABLET PO (09:08)
[2021-05-20] MEDS: ATORVASTATIN 40 MG TABLET PO (09:08)
[2021-05-20] MEDS: NABUMETONE 500 MG TABLET PO (09:08)
[2021-05-20] MEDS: polyethylene glycoL 3350 17 GM POWD.PACK PO (09:08)
[2021-05-20] MEDS: LORATADINE 10 MG TABLET PO (09:08)
[2021-05-20] MEDS: ASPIRIN 81 MG CHEWABLE TABLET PO (09:08)
[2021-05-20] MEDS: DICLOFENAC SOD 75 MG TABLET.EC PO ×2 (09:08→18:13)
[2021-05-20] MEDS: CHOLECALCIFEROL 1,000 UNITS TABLET 2000 UNITS PO (09:08)
[2021-05-20] MEDS: GABAPENTIN 100 MG CAPSULE 200 MG PO ×3 (09:08→17:39)
[2021-05-20 14:00] VITALS: BP 141/76; PULSE 85; RESP 18; TEMP 36.3; O2SAT 95
--- NOTE | 2021-05-20 14:00 | PM.IMPN ---
Progress Note: A&P Assessment and Plan (1) Acute UTI: Code(s): N39.0 - Urinary tract infection, site not specified Status: Acute Assessment and Plan: Patient received ceftriaxone in the emergency room Cultures found Ecoli Antibiotics changed to cefepime day 5 Deescalate antibiotics as needed Urine also positive for E coli (2) Acute renal insufficiency: Code(s): N28.9 - Disorder of kidney and ureter, unspecified Status: Acute Assessment and Plan: Likely secondary to hypotensive episode Holding lisinopril Holding Lasix IV fluid resuscitation on as needed Daily intake and output Renal failure continues to improve (3) History of implantable cardioverter-defibrillator (ICD) placement: Code(s): Z95.810 - Presence of automatic (implantable) cardiac defibrillator Status: Acute Assessment and Plan: Unchanged Continue to monitor (4) 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): Code(s): R52 - Pain, unspecified Status: Acute Assessment and Plan: Unchanged Continue to monitor Continue pain pump not loaded with narcotics according to the patient Continue home meds Roxicodone 5mg PO Q8hr, Percocet 5/325 1 tab Q8hr PRn (5) S/P CABG (coronary artery bypass graft): Code(s): Z95.1 - Presence of aortocoronary bypass graft Status: Acute Assessment and Plan: Stable Continue to monitor (6) Hypotension: Code(s): I95.9 - Hypotension, unspecified Status: Acute Assessment and Plan: Current blood pressure 141/76 IV fluid resuscitation to continue Improved from admission Continue to trend Adjust medications as needed. (7) Anemia: Code(s): D64.9 - Anemia, unspecified Status: Acute Assessment and Plan: chronic hemoglobin at baseline noted H/H 10.0/30.7 (8) Hyponatremia: Code(s): E87.1 - Hypo-osmolality and hyponatremia Status: Acute Assessment and Plan: sodium level on admission is 121 baseline 134 Continues to improve 140 today (9) Elevated liver enzymes: Code(s): R74.8 - Abnormal levels of other serum enzymes Status: Acute Assessment and Plan: AST ALT elevated 57/89 CT abdomen with distended gallbladder Right upper quadrant ultrasound with acute acalculous cholecystitis Diet advanced: Low fat diet General surgery going to treat conservatively at this time HIDA scan showed lower side of normal EF of 35% Continue to trend (10) Urinary retention: Code(s): R33.9 - Retention of urine, unspecified Status: Acute Assessment and Plan: status post Mejía catheter placement likely from UTI associated bilateral hydronephrosis mild to moderate right mild left problem from bladder retention Urology consult Renal duplex Voiding trail failed will need to be DC with mejía Patient reports many problems with urination (11) Hydronephrosis: Code(s): N13.30 - Unspecified hydronephrosis Status: Acute Assessment and Plan: recheck renal ultrasound to ensure hydronephrosis resolved (12) Bacteremia: Code(s): R78.81 - Bacteremia Status: Acute Assessment and Plan: Identified as E coli Urine also positive to bacteremia could be related to your tract infection underlying Also has acute acalculous cholecystitis. And/or calculous cholecystitis with passage of gallbladder stone LFT continues to improve Dr Baugh recommends 5 days of IV Cefepime 2gm Daily following 5 days of oral Keflex 500mg for 5 days (13) Chronic cholecystitis: Code(s): K81.1 - Chronic cholecystitis Status: Acute Assessment and Plan: CT abdomen with distended gallbladder Right upper quadrant ultrasound with acute acalculous cholecystitis Diet advanced per general surgery General feliz
--- NOTE | 2021-05-20 14:00 | P.PNIM_ITS ---
Progress Note: A&P Assessment and Plan (1) Acute UTI: Code(s): N39.0 - Urinary tract infection, site not specified Status: Acute Assessment and Plan: * Patient received ceftriaxone in the emergency room * Cultures found Ecoli * Antibiotics changed to cefepime day 5 * Deescalate antibiotics as needed * Urine also positive for E coli (2) Acute renal insufficiency: Code(s): N28.9 - Disorder of kidney and ureter, unspecified Status: Acute Assessment and Plan: * Likely secondary to hypotensive episode * Holding lisinopril * Holding Lasix * IV fluid resuscitation on as needed * Daily intake and output * Renal failure continues to improve (3) History of implantable cardioverter-defibrillator (ICD) placement: Code(s): Z95.810 - Presence of automatic (implantable) cardiac defibrillator Status: Acute Assessment and Plan: Unchanged Continue to monitor (4) 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): Code(s): R52 - Pain, unspecified Status: Acute Assessment and Plan: * Unchanged * Continue to monitor * Continue pain pump not loaded with narcotics according to the patient * Continue home meds * Roxicodone 5mg PO Q8hr, Percocet 5/325 1 tab Q8hr PRn (5) S/P CABG (coronary artery bypass graft): Code(s): Z95.1 - Presence of aortocoronary bypass graft Status: Acute Assessment and Plan: * Stable * Continue to monitor (6) Hypotension: Code(s): I95.9 - Hypotension, unspecified Status: Acute Assessment and Plan: * Current blood pressure 141/76 * IV fluid resuscitation to continue * Improved from admission * Continue to trend * Adjust medications as needed. (7) Anemia: Code(s): D64.9 - Anemia, unspecified Status: Acute Assessment and Plan: * chronic hemoglobin at baseline noted * H/H 10.0/30.7 (8) Hyponatremia: Code(s): E87.1 - Hypo-osmolality and hyponatremia Status: Acute Assessment and Plan: * sodium level on admission is 121 * baseline 134 * Continues to improve 140 today (9) Elevated liver enzymes: Code(s): R74.8 - Abnormal levels of other serum enzymes Status: Acute Assessment and Plan: * AST ALT elevated 57/89 * CT abdomen with distended gallbladder * Right upper quadrant ultrasound with acute acalculous cholecystitis * Diet advanced: Low fat diet * General surgery going to treat conservatively at this time * HIDA scan showed lower side of normal EF of 35% * Continue to trend (10) Urinary retention: Code(s): R33.9 - Retention of urine, unspecified Status: Acute Assessment and Plan: * status post Mejía catheter placement likely from UTI associated bilateral hydronephrosis * mild to moderate right mild left problem from bladder retention * Urology consult * Renal duplex * Voiding trail failed will need to be DC with mejía * Patient reports many problems with urination (11) Hydronephrosis: Code(s): N13.30 - Unspecified hydronephrosis Status: Acute Assessment and Plan: * recheck renal ultrasound to ensure hydronephrosis resolved (12) Bacteremia: Code(s): R78.81 - Bacteremia Status: Acute Assessment and Plan: * [place]
[2021-05-20] MEDS: MAGNESIUM SULF 4 GM/WATER100ML 4 GM/100 ML BAG IVPB (17:40)
[2021-05-20] MEDS: MIRTAZAPINE 30 MG TABLET PO (20:41)
[2021-05-20] MEDS: QUEtiapine FUMARATE 100 MG TABLET 200 MG PO (20:41)
[2021-05-20 20:42] VITALS: PULSE 94
[2021-05-20 22:00] VITALS: BP 145/75; PULSE 85; RESP 18; TEMP 36.6; O2SAT 97
[2021-05-21 06:00] VITALS: BP 151/77; PULSE 76; RESP 18; TEMP 36.2; O2SAT 100
[2021-05-21 08:00] VITALS: O2SAT 98
[2021-05-21] MEDS: ACETAMINOPHEN 325 MG TABLET 650 MG PO (08:32)
[2021-05-21] MEDS: PREGABALIN (*CRX) 50 MG CAPSULE PO ×2 (08:32→12:42)
[2021-05-21] MEDS: GABAPENTIN 100 MG CAPSULE 200 MG PO ×3 (08:33→17:47)
[2021-05-21] MEDS: MAGNESIUM SULF 4 GM/WATER100ML 4 GM/100 ML BAG IVPB (08:33)
[2021-05-21] MEDS: DULoxetine HCL 60 MG CAPSULE.DR PO (08:33)
[2021-05-21] MEDS: CHOLECALCIFEROL 1,000 UNITS TABLET 2000 UNITS PO (08:33)
[2021-05-21] MEDS: FUROSEMIDE INJ 40 MG/4 ML VIAL IV PUSH (08:33)
[2021-05-21] MEDS: POTASSIUM CHLORIDE 20 MEQ TABLET.ER PO (08:34)
[2021-05-21] MEDS: ASPIRIN 81 MG CHEWABLE TABLET PO (08:34)
[2021-05-21] MEDS: ATORVASTATIN 40 MG TABLET PO (08:34)
[2021-05-21] MEDS: busPIRone HCL 10 MG TABLET PO ×3 (08:34→17:47)
[2021-05-21 08:35] VITALS: PULSE 88
[2021-05-21] MEDS: FERROUS SULFATE 324 MG TABLET PO (08:35)
[2021-05-21] MEDS: TAMSULOSIN HCL 0.4 MG CAPSULE PO (08:35)
[2021-05-21] MEDS: LORATADINE 10 MG TABLET PO (08:35)
[2021-05-21] MEDS: carvediloL 12.5 MG TABLET PO (08:35)
[2021-05-21] MEDS: QUEtiapine FUMARATE 100 MG TABLET PO (08:35)
[2021-05-21] MEDS: polyethylene glycoL 3350 17 GM POWD.PACK PO (08:35)
[2021-05-21] MEDS: NABUMETONE 500 MG TABLET PO (08:35)
[2021-05-21] MEDS: DICLOFENAC SOD 75 MG TABLET.EC PO ×2 (08:36→17:47)
[2021-05-21] MEDS: PANTOPRAZOLE 40 MG TABLET PO (10:16)
[2021-05-21] MEDS: oxyCODONE HCL (*CRX) 5 MG TAB IR PO (10:16)
[2021-05-21] MEDS: oxyCODONE/ACETAMINOPHEN (*CRX) 5-325 MG TABLET 1 TABLET PO (10:17)
[2021-05-21] MEDS: CYCLOBENZAPRINE HCL 5 MG TABLET PO (12:43)
--- NOTE | 2021-05-21 13:33 | P.DS_ITS ---
DS: Admitting Diagnosis Discharge Date Date of service 05/21/2021 at 11:25 a.m. Admitting Diagnosis UTI/bacteremia DS: Discharge Diagnosis Discharge Diagnosis (1) Acute UTI: Code(s): N39.0 - Urinary tract infection, site not specified Status: Acute Assessment and Plan: * Patient received ceftriaxone in the emergency room * Cultures found Ecoli * Antibiotics changed to cefepime day 5 * Deescalate antibiotics as needed * Urine also positive for E coli (2) Acute renal insufficiency: Code(s): N28.9 - Disorder of kidney and ureter, unspecified Status: Acute Assessment and Plan: * Likely secondary to hypotensive episode * Holding lisinopril * Holding Lasix * IV fluid resuscitation on as needed * Daily intake and output * Renal failure continues to improve (3) History of implantable cardioverter-defibrillator (ICD) placement: Code(s): Z95.810 - Presence of automatic (implantable) cardiac defibrillator Status: Acute Assessment and Plan: Unchanged Continue to monitor (4) Pain 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 patient-controlled analgesia (JEWEL SETTER): Code(s): R52 - Pain, unspecified Status: Acute Assessment and Plan: * Unchanged * Continue to monitor * Continue pain pump not loaded with narcotics according to the patient * Continue home meds * Roxicodone 5mg PO Q8hr, Percocet 5/325 1 tab Q8hr PRn (5) S/P CABG (coronary artery bypass graft): Code(s): Z95.1 - Presence of aortocoronary bypass graft Status: Acute Assessment and Plan: * Stable * Continue to monitor (6) Hypotension: Code(s): I95.9 - Hypotension, unspecified Status: Acute Assessment and Plan: * Current blood pressure 141/76 * IV fluid resuscitation to continue * Improved from admission * Continue to trend * Adjust medications as needed. (7) Anemia: Code(s): D64.9 - Anemia, unspecified Status: Acute Assessment and Plan: * chronic hemoglobin at baseline noted * H/H 10.0/30.7 (8) Hyponatremia: Code(s): E87.1 - Hypo-osmolality and hyponatremia Status: Acute Assessment and Plan: * sodium level on admission is 121 * baseline 134 * Continues to improve 140 today (9) Elevated liver enzymes: Code(s): R74.8 - Abnormal levels of other serum enzymes Status: Acute Assessment and Plan: * AST ALT elevated 57/89 * CT abdomen with distended gallbladder * Right upper quadrant ultrasound with acute acalculous cholecystitis * Diet advanced: Low fat diet * General surgery going to treat conservatively at this time * HIDA scan showed lower side of normal EF of 35% * Continue to trend (10) Urinary retention: Code(s): R33.9 - Retention of urine, unspecified Status: Acute Assessment and Plan: * status post Mejía catheter placement likely from UTI associated bilateral hydronephrosis * mild to moderate right mild left problem from bladder retention * Urology consult * Renal duplex * Voiding trail failed will need to be DC with mejía * Patient reports many problems with urination (11) Hydronephrosis: Code(s): N13.30 - Unspecified hydronephrosis Status: Acute Assessment and Plan: * recheck renal ultrasound to ensure hydronephrosis resolved
--- NOTE | 2021-05-21 13:33 | PM.DS ---
DS: Admitting Diagnosis Discharge Date Date of service 05/21/2021 at 11:25 a.m. Admitting Diagnosis UTI/bacteremia DS: Discharge Diagnosis Discharge Diagnosis (1) Acute UTI: Code(s): N39.0 - Urinary tract infection, site not specified Status: Acute Assessment and Plan: Patient received ceftriaxone in the emergency room Cultures found Ecoli Antibiotics changed to cefepime day 5 Deescalate antibiotics as needed Urine also positive for E coli (2) Acute renal insufficiency: Code(s): N28.9 - Disorder of kidney and ureter, unspecified Status: Acute Assessment and Plan: Likely secondary to hypotensive episode Holding lisinopril Holding Lasix IV fluid resuscitation on as needed Daily intake and output Renal failure continues to improve (3) History of implantable cardioverter-defibrillator (ICD) placement: Code(s): Z95.810 - Presence of automatic (implantable) cardiac defibrillator Status: Acute Assessment and Plan: Unchanged Continue to monitor (4) Pain 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 patient-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 analgesia (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): Code(s): R52 - Pain, unspecified Status: Acute Assessment and Plan: Unchanged Continue to monitor Continue pain pump not loaded with narcotics according to the patient Continue home meds Roxicodone 5mg PO Q8hr, Percocet 5/325 1 tab Q8hr PRn (5) S/P CABG (coronary artery bypass graft): Code(s): Z95.1 - Presence of aortocoronary bypass graft Status: Acute Assessment and Plan: Stable Continue to monitor (6) Hypotension: Code(s): I95.9 - Hypotension, unspecified Status: Acute Assessment and Plan: Current blood pressure 141/76 IV fluid resuscitation to continue Improved from admission Continue to trend Adjust medications as needed. (7) Anemia: Code(s): D64.9 - Anemia, unspecified Status: Acute Assessment and Plan: chronic hemoglobin at baseline noted H/H 10.0/30.7 (8) Hyponatremia: Code(s): E87.1 - Hypo-osmolality and hyponatremia Status: Acute Assessment and Plan: sodium level on admission is 121 baseline 134 Continues to improve 140 today (9) Elevated liver enzymes: Code(s): R74.8 - Abnormal levels of other serum enzymes Status: Acute Assessment and Plan: AST ALT elevated 57/89 CT abdomen with distended gallbladder Right upper quadrant ultrasound with acute acalculous cholecystitis Diet advanced: Low fat diet General surgery going to treat conservatively at this time HIDA scan showed lower side of normal EF of 35% Continue to trend (10) Urinary retention: Code(s): R33.9 - Retention of urine, unspecified Status: Acute Assessment and Plan: status post Mejía catheter placement likely from UTI associated bilateral hydronephrosis mild to moderate right mild left problem from bladder retention Urology consult Renal duplex Voiding trail failed will need to be DC with mejía Patient reports many problems with urination (11) Hydronephrosis: Code(s): N13.30 - Unspecified hydronephrosis Status: Acute Assessment and Plan: recheck renal ultrasound to ensure hydronephrosis resolved (12) Bacteremia: Code(s): R78.81 - Bacteremia Status: Acute Assessment and Plan: Identified as E coli Urine also positive to bacteremia could be related to your tract infection underlying Also has acute acalculous cholecystitis. And/or calculous cholecystitis with passage of gallbladder stone LFT continues to improve Dr Baugh recommends 5 days of IV Cefepime 2gm Daily following 5 days of oral Keflex 500mg for 5 days (13) Chronic cholecystitis: Code(s): K81.1 - Chronic cholecystitis Status: Acute Assessment and Plan: CT abdomen with distended gallb
[2021-05-21 14:05] VITALS: BP 161/73; PULSE 84; RESP 16; TEMP 36.6; O2SAT 100
[2021-05-21 14:17] VITALS: BP 129/75; PULSE 77; RESP 16; TEMP 36.3; O2SAT 98
--- NOTE | 2021-05-21 14:40 | ECG_ITS ---
Measurements Intervals [place] Rate: 73 P: 48 MA: 181 QRS: 31 QRSD: 114 T: 69 QT: 424 QTc: 470 Interpretive Statements SINUS RHYTHM INTRAVENTRICULAR CONDUCTION DELAY T WAVE ABNORMALITY IN ANTERIOR LEADS- CONSIDER ISCHEMIA BASELINE ARTIFACT- I, II, V4 ABNORMAL ECG Electronically Signed On 05-21-2021 15:01:55 CDT by Marcos Figueroa D.O.
[2021-05-21] MEDS: NITROGLYCERIN SL 0.4 MG TABLET SUBLINGUAL (15:00)
[2021-05-21 15:21] VITALS: BP 124/83
[2021-05-21 16:05] LABS: Troponin I < 0.012 ng/mL (0.000-0.034)
== END 2021-05-21 18:05 | DRG 872 ==
LOC: ANHED 15:06 → ANH3MEDSUR 17:56
PROVIDERS: Internal Medicine; Admitting Provider Internal Medicine; Emergency Provider Emergency Medicine; PCP Internal Medicine; Visit Provider Nurse Practitioner
DX: A41.51 Sepsis due to Escherichia coli [E. coli] (principal); N39.0 Urinary tract infection, site not specified; E87.1 Hypo-osmolality and hyponatremia; K56.7 Ileus, unspecified; N17.9 Acute kidney failure, unspecified; K81.2 Acute cholecystitis with chronic cholecystitis; N13.6 Pyonephrosis; R33.9 Retention of urine, unspecified; E86.0 Dehydration; R74.8 Abnormal levels of other serum enzymes; G89.4 Chronic pain syndrome; Z96.89 Presence of other specified functional implants; D50.9 Iron deficiency anemia, unspecified; K21.9 Gastro-esophageal reflux disease without esophagitis; I10 Essential (primary) hypertension; I25.10 Atherosclerotic heart disease of native coronary artery without angina pectoris; E83.42 Hypomagnesemia; Z79.899 Other long term (current) drug therapy; Z87.891 Personal history of nicotine dependence; Z95.1 Presence of aortocoronary bypass graft; Z95.810 Presence of automatic (implantable) cardiac defibrillator
CPT/HCPCS: 36415; 51701; 71045; 74176; 76705; 76775; 78227; 80053; 80307; 81001; 83605; 83690; 83735; 84484; 85025; 85610; 85730; 87040; 87077; 87086; 87088; 87186; 93005; 96361; 96365; 96366; 96367; 97110; 97162; 97165; 97530; 97535; 99291; A9270; A9537; G0378; J0692; J0696; J1940; J2543; J2805; J3475; J7030; J7040

== ENCOUNTER 2021-06-25 15:38 | Inpatient (IN) | payer MEDICARE, OTHER, SELFPAY ==
[2021-06-25] VITALS (26 sets, daily range): BP systolic 61–97; BP diastolic 30–73; PULSE 90–116; RESP 13–23; TEMP 36.4–37.5; O2SAT 92–100; BMI 22.6
--- NOTE | ~2021-06-25 | XR_ITS ---
EXAMINATION: XR chest 1V portable INDICATION: PICC insertion TECHNIQUE: Portable AP chest at 1313 hours COMPARISON: 0523 hours FINDINGS: A right upper extremity PICC has been inserted which ends with tip in the distal superior v ivana cava. The nasogastric tube is in the stomach. The endotracheal tube ends approximately 4.8 cm abo ve the niels. The cardiomediastinal silhouette is normal. A dual-lead cardiac pacemaker of the left chest wall ends with leads in expected locations. There is no pleural effusion or pneumothorax. Patch y opacities throughout the right lung and in the left lung base are stable. Free intraperitoneal gas is again noted, likely related to recent surgery. IMPRESSION: 1. Right upper extremity PICC inserted ending in the distal superior vena cava, otherwise no signific ant change. Reviewed, dictated and finalized at location A. IPLE DRILL OPERATOR IMPRESSION: 1. Right upper extremity PICC inserted ending in the distal superior vena cava, otherwise no significant change.
--- NOTE | ~2021-06-25 | XR_ITS ---
EXAMINATION: XR chest 1V portable INDICATION: Endotracheal tube insertion TECHNIQUE: Portable AP chest at 2353 hours COMPARISON: 06/25/2021 FINDINGS: An endotracheal tube has been inserted which ends 4.6 cm above the niels. The nasogastric tube ends with its tip at the gastroesophageal junction. Tube has been advanced at the time of interp retation. There are patchy opacities throughout the right lung zone and in the left lung base. The ca rdiomediastinal silhouette is stable. A dual-lead cardiac pacemaker of the left chest wall ends with leads in expected locations. Free intraperitoneal gas is consistent with recent surgery. There are pa rtially imaged changes of fusion in the cervical spine. IMPRESSION: 1. Endotracheal tube 4.6 cm above the niels. 2. Tip of the nasogastric tube at the gastroesophageal junction. Tube has been advanced at the time o f interpretation. 3. Patchy opacities throughout the right lung and in the left lung base, consistent with atelectasis versus pneumonia. Reviewed, dictated and finalized at location A. F OF PARTY IMPRESSION: 1. Endotracheal tube 4.6 cm above the niels. 2. Tip of the nasogastric tube at the gastroesophageal junction. Tube has been advanced at the time of interpretation. 3. Patchy opacities throughout the right lung and in the left lung base, consis tent with atelectasis versus pneumonia.
--- NOTE | ~2021-06-25 | XR_ITS ---
XR chest 1V portable 06/25/2021 21:09 Indication: Femoral line placed. Attempted central line placement. Procedure: AP portable chest Comparison: Comparison to multiple prior studies sequentially, with oldest reviewed study dated 11/08. Findings: There is right upper lobe atelectasis with elevation of the fissure. There are infiltrates of the left mid and lower lung. Pacemaker leads in expected position. Heart size normal. Status post median sternotomy for CABG. There are surgical changes of the cervical thoracic spine. Impression: 1: Bilateral airspace disease of the right upper and left mid and lower lung which may represent atel ectasis and/or pneumonia. 2: No pneumothorax identified. Dr. Stefan Montes discussed with Dr. Lc Bass DO at 06/25/2021 21:13 MOLDING ROOM SUPERVISOR. Reviewed, dictated and finalized at location A. ING ROOM SUPERVISOR Impression: 1: Bilateral airspace disease of the right upper and left mid and lower lung wh ich may represent atelectasis and/or pneumonia. 2: No pneumothorax identified. Dr. Stefan Montes discussed with Dr. Lc Bass DO at 06/25/2021 21:13 MOLDING ROOM SUPERVISOR .
--- NOTE | ~2021-06-25 | XR_ITS ---
EXAMINATION: XR abdomen NG/feed tube insert INDICATION: Nasogastric tube insertion TECHNIQUE: Portable AP KUB-NG at 2352 hours COMPARISON: CT, 06/25/2021 FINDINGS: The tip of the nasogastric tube is in the gastroesophageal junction. Its proximal side port is in the distal esophagus. There are midline surgical stanislaw. A right femoral catheter projects ov er the right sacrum. Free intraperitoneal gas likely relates to recent surgery. There are changes of bilateral hip arthroplasty. A pain pump is implanted in the left abdominal wall. There is mild atelec tasis of the visualized lung bases. IMPRESSION: 1. Tip of the nasogastric tube at the gastroesophageal junction. Tube has been advanced the time of i nterpretation. Reviewed, dictated and finalized at location A. MOGRAPH COMPUTER IMPRESSION: 1. Tip of the nasogastric tube at the gastroesophageal junction. Tube has been advanced the time of interpretation.
--- NOTE | ~2021-06-25 | CT_ITS ---
EXAMINATION: CT abdomen pelvis w con DATE: 06/25/2021 19:02 INDICATION: Abdominal pain, weakness and diarrhea. TECHNIQUE: Computed tomography (CT) of the abdomen and pelvis was performed with 100 cc Omnipaque 350 intravenous contrast. The dose-length product was 467.02 mGy-cm. Automated exposure control and iter ative reconstruction technique were employed. COMPARISON: CT dated 05/14/2021. FINDINGS: There are patchy groundglass opacities in the lung bases, compatible with pneumonia. Heart size normal. There is diffusely dilated colon containing fluid with diffuse abnormal thickening, consistent with c olitis, most likely infectious. No definite obstruction. There is dilation of the gallbladder. The liver, spleen, adrenal glands are unremarkable. There is bi lateral renal atrophy and scarring. The pancreas is atrophic with pancreatic ductal dilation. There i s a cystic pancreatic mass measuring 1.9 x 0.9 cm. There are pancreatic calcifications, consistent wi th chronic pancreatitis. There are bilateral hip arthroplasties creating streak artifact limiting zach luation of the lower pelvis. There is a Cedeno catheter, not completely visualized due to streak artif act. There are chronic fracture deformities of the right superior and inferior pubic rami. There is b one marrow donor site from the left ilium. There is a chronic burst fracture of L3 with vertebroplast y changes. There is mild superior endplate compression deformities of T12 and L1, likely chronic. [place] nahid is likely surgically absent. IMPRESSION: 1. Interval development of diffuse abnormal thickening of the colon and rectum, consistent with colit is, likely infectious. 2: Patchy groundglass opacities in the lower lungs, compatible with pneumonia. Reviewed, dictated and finalized at location A. ULTING SERVICES MANAGER IMPRESSION: 1. Interval development of diffuse abnormal thickening of the colon and rectum, consistent with colitis, likely infectious. 2: Patchy groundglass opacities in the lower lungs, compatible with pneumonia.
--- NOTE | ~2021-06-25 | XR_ITS ---
XR chest 1V portable 06/28/2021 10:34 Indication: Acute respiratory failure Procedure: AP view of the chest Comparison: Comparison to multiple prior studies sequentially, with oldest reviewed study dated 06/01. Findings: Endotracheal tube tip 4.5 cm above the niels. NG tube in the stomach. PICC line tip in the SVC. Persistent diffuse bilateral airspace disease which is not significantly changed from prior mos t recent examination. Small pleural effusions. No pneumothorax. Pacemaker leads are stable. No acute osseous abnormality. Impression: 1: Stable diffuse bilateral airspace disease with pleural effusions, most likely pneumonia. Different ial diagnosis includes edema. Reviewed, dictated and finalized at location B. ER HAND Impression: 1: Stable diffuse bilateral airspace disease with pleural effusions, most likel y pneumonia. Differential diagnosis includes edema.
--- NOTE | ~2021-06-25 | XR_ITS ---
EXAMINATION: XR chest 1V portable INDICATION: Respiratory failure TECHNIQUE: Portable AP chest at 0523 hours COMPARISON: None available FINDINGS: The endotracheal tube ends approximately 4.8 cm above the niels. The nasogastric tube is i n the stomach. There are patchy opacities throughout the right lung and in the left lung base. No ple ural effusion or pneumothorax is identified. The cardiomediastinal silhouette is stable. A dual-lead cardiac pacemaker of the left chest wall ends with leads in expected locations. There are partially i maximo surgical changes of the cervical spine. Three intraperitoneal gas of the abdomen likely relates to recent surgery. IMPRESSION: 1. Patchy opacities throughout the left lung and in the left lung base, consistent with atelectasis v ersus pneumonia. Reviewed, dictated and finalized at location A. TENANCE MECHANIC SUPERVISOR IMPRESSION: 1. Patchy opacities throughout the left lung and in the left lung base, consist ent with atelectasis versus pneumonia.
--- NOTE | ~2021-06-25 | XR_ITS ---
EXAMINATION: XR abdomen NG/feed tube rechec INDICATION: OG placement TECHNIQUE: Portable AP KUB-NG at 0522 hours COMPARISON: 06/26/2021 FINDINGS: The OG tube has been advanced into the stomach. Free intraperitoneal gas likely relates to recent surgery. There are opacities of the visualized lung bases, consistent with atelectasis versus pneumonia. IMPRESSION: 1. OG tube advanced into the stomach. Reviewed, dictated and finalized at location A. NATOR MAKER
--- NOTE | 2021-06-25 15:50 | ED.WEAKNESS ---
HPI - Weakness General Chief complaint: Weakness Stated complaint: WEAKNESS,LETHARGY Time Seen by Provider: 06/25/21 15:45 Source: RN notes reviewed History of Present Illness HPI Narrative: Patient presents to emergency department from [facility] via EMS for weakness. Patient recently recovered from COVID-19 and was cleared on June 07. Per the patient she has been feeling more weak over the past several days and had diarrhea this morning she states she had several episodes of loose bowel movements with abdominal pain described as cramping is diffuse throughout the abdomen. Patient states that she also had had noted low blood pressures at the facility today been on oxygen since being diagnosed with Covid she denies any fevers or chills chest pain shortness of breath or any other symptoms Related Data Home Medications Medication Instructions Recorded Confirmed mirtazapine 30 mg tablet 30 mg PO HS 06/19/19 06/03/21 quetiapine 300 mg tablet 100 mg PO BID 07/04/19 06/03/21 bisacodyl 5 mg PO BID 12/22/20 06/03/21 cetirizine 10 mg PO DAILY 12/22/20 06/03/21 cholecalciferol (vitamin D3) 50 mcg PO DAILY 12/22/20 06/03/21 [Vitamin D3] diclofenac sodium 75 mg PO BID 12/22/20 06/03/21 duloxetine 60 mg PO DAILY 12/22/20 06/03/21 ferrous sulfate 325 mg PO DAILY 12/22/20 06/03/21 furosemide 20 mg PO DAILY 12/22/20 06/03/21 nabumetone 500 mg PO DAILY 12/22/20 06/03/21 buspirone 10 mg PO TID 05/14/21 06/03/21 Allergies Allergy/AdvReac Type Severity Reaction Status Date / Time ciprofloxacin Allergy Severe Unresponsiv Verified 06/02/21 10:13 e Review of Systems Review of Systems: Gen.: Denies fevers or chills ENT: Denies congestion Respiratory: Denies shortness of breath or cough CV: Denies chest pain or palpitations GI: See HPI denies burning, urgency, frequency or hematuria Musculoskeletal: Denies back pain or muscle pain Neuro: Reports weakness Skin: Denies rash Except as documented, all other systems reviewed and negative PMFSH Past Medical History Medical History Anemia, unspecified Anxiety Cervical fusion syndrome Chronic pain Hyperlipidemia Hyponatremia Pain 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 patient-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 analgesia (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) Serum potassium elevated Surgical History Surgical History Cataract extraction status H/O abdominal hysterectomy H/O colonoscopy H/O laminectomy H/O lumbar discectomy H/O Spinal surgery History of bilateral hip arthroplasty I am not sure if they replaced or repaired Hx of cholecystectomy S/P CABG (coronary artery bypass graft) S/P CABG x 3 Family History Family History Mother Depression Cerebrovascular accident Sibling Depression Father Cerebrovascular accident, Onset Age: 83 Family history of coronary artery disease Patient's father is Other Diabetes mellitus Family history of arthritis Hypertension Social History Social History Social History: The patient tells me that she recently quit smoking. She denies any alcohol except she does occasionally have a beer 2. She has 2 sons. She is disabled. She desires to be a full code. She says her sons are the durable power leguillon debeader for healthcare. She is . Smoking packs per day: 0.5 Smoking cigarettes per day: 10.0 Years smoked: 30 Smoking pack-years: 15.00 Smoking status: Former smoker Second hand tobacco smoke exposure: No Alcohol intake: former Substance use: never Substance use type: does not use Gender identity (if verbalized by the patient): Female Spiritual care concerns: No Exam Narrative: APPEARANCE: No acute distress, nontoxic, resting in bed EYES: EOMI HEENT: Normocephalic, atraumatic, OMM RESPIRATORY: No respiratory distress Clear to auscultation bila
[2021-06-25] MEDS: SODIUM CHLORIDE 0.9% IV 1,000 ML 999 ML IV CONT ×2 (16:03→19:24)
--- NOTE | 2021-06-25 17:14 | PC.NURSE ---
Multiple attempts to draw patient's blood. Lab called to attempt blood draw.
[2021-06-25 17:52] LABS: Basophils Absolute Auto 0.1 K/mm3 (0.0-0.1); Basophils Percent Auto 0.4 % (0.2-1.2); Hematocrit 29.2 % (37.0-47.0); Hemoglobin 9.9 g/dL (12.0-15.0); Immature Granulocyte Absolute 0.36 K/mm3 (0.00-0.031); Immature Granulocyte Percent A 1.5 % (0-0.5); Lymphocytes Absolute Auto 0.41 K/mm3 (0.9-3.2); Lymphocytes Percent Auto 1.7 % (18.3-44.2); Mean Corpuscular HGB Conc 33.9 g/dl (32-36); Mean Corpuscular Hemoglobin 31.8 pg (26-34); Mean Corpuscular Volume 93.9 fl (80-100); Mean Platelet Volume 9.2 fl (7.4-10.4); Monocytes Absolute Auto 1.6 K/mm3 (0.1-0.6); Monocytes Percent Auto 6.5 % (2.6-8.5); Neutrophils Absolute Auto 21.3 K/mm3 (1.3-6.7); Neutrophils Percent Auto 89.9 % (45.5-73.1); Platelet Count Result 408 k/mm3 (150-375); Red Blood Count 3.11 M/mm3 (4.2-5.4); Red Cell Distribution Width 13.2 % (11.5-14.5); White Blood Count 23.8 K/mm3 (4.5-10.0)
[2021-06-25 18:01] LABS: Lactic Acid Reflex 1.5 mmol/L (0.7-2.1)
[2021-06-25 18:07] LABS: Add Urine Microscopic? NO; Appearance Urine Clear (Clear); Bilirubin Urine Negative (Negative); Blood Urine Negative (Negative); Color Urine Yellow (Yellow); Glucose Urine UA Negative (Negative); Ketones Urine Negative (Negative); Leukocyte Esterase Ur Negative LEU/UL (Negative); Nitrate Urine Negative (Negative); Protein Urine Negative (Negative); Specific Grav Ur 1.008 (1.001-1.035); Urobilinogen Urine Negative mg/dL (<2.0)
[2021-06-25 18:31] LABS: Ovalocytes 1+ (NORMAL); Platelet Estimate Increased (Adequate)
[2021-06-25 18:32] LABS: INR 1.1; Prothrombin Time 14.5 Seconds (11.1-14.7)
[2021-06-25 18:33] LABS: Partial Thromboplastin Time 31.9 SECONDS (22.3-36.8)
[2021-06-25 18:38] LABS: Alanine Aminotransferase 9 U/L (4-35); Alkaline Phosphatase 92 U/L (38-126); Anion Gap 10 mmol/L (8-16); Aspartate Amino Transferase 15 U/L (14-36); Bilirubin,Total 0.6 mg/dL (0.2-1.3); Blood Urea Nitrogen 31 mg/dL (7-17); Calcium 7.2 mg/dL (8.4-10.2); Carbon Dioxide 22 mmol/L (22-30); Chloride 94 mmol/L (98-107); Estimated CRCL calculation 26 ml/min; Estimated Glomerular Filt Rate 32; Glucose 120 mg/dL (65-110); Potassium 3.4 mmol/L (3.4-5.0); Sodium 126 mmol/L (137-145)
--- NOTE | 2021-06-25 19:07 | PC.NURSE ---
Patient has received 2L total normal saline at this time.
[2021-06-25 19:21] LABS: Lipase < 10 U/L (23-300)
--- NOTE | 2021-06-25 19:32 | PM.IMHP ---
H&P: HPI History of Present Illness Date/Time: 06/25/21 19:33 Chief Complaint: Abdominal pain Narrative: This is a 71-year-old female with past medical history significant for chronic pain, implanted pain pump, cervical fusion, hyperlipidemia, hyponatremia, implanted cardioverter defibrillator, coronary artery disease, cholecystitis. Patient was just recently discharged she had been treated for urinary tract infection according to the son who is at bedside the plan is to get her gallbladder out at some point. She was at rehabilitation facility and she was brought in for evaluation after she complained of extreme weakness in emergency room patient was found to have a blood pressure or of 70/40. Of note patient takes great amounts of opiates for her chronic pain. In emergency room patient was found to have colitis and she is known to have had C difficile in the past. This was found on CT of abdomen and pelvis. A chest x-ray showed area of infiltrates as well. Patient was fluid resuscitated a central line was placed and patient has received broad-spectrum antibiotics. Most of the history was obtained upon review well of medical records emergency room doctor and some who is at bedside. 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) Serum potassium elevated Surgical History Surgical History Cataract extraction status H/O abdominal hysterectomy H/O colonoscopy H/O laminectomy H/O lumbar discectomy H/O Spinal surgery History of bilateral hip arthroplasty I am not sure if they replaced or repaired Hx of cholecystectomy S/P CABG (coronary artery bypass graft) S/P CABG x 3 Family History Family History Mother Depression Cerebrovascular accident Sibling Depression Father Cerebrovascular accident, Onset Age: 83 Family history of coronary artery disease Patient's father is Other Diabetes mellitus Family history of arthritis Hypertension Social History Social History Social History: The patient tells me that she recently quit smoking. She denies any alcohol except she does occasionally have a beer 2. She has 2 sons. She is disabled. She desires to be a full code. She says her sons are the durable power privacy attorney for healthcare. She is . Smoking packs per day: 0.5 Smoking cigarettes per day: 10.0 Years smoked: 30 Smoking pack-years: 15.00 Smoking status: Former smoker Tobacco type: cigarettes Second hand tobacco smoke exposure: No Smoking end date: 06/25/06 Alcohol intake: current Drinks per week: 1 Substance use: never Substance use type: does not use Gender identity (if verbalized by the patient): Female Spiritual care concerns: Yes (confucianist) Meds Home Medications and Allergies Home Medications Medication Instructions Recorded Confirmed Type mirtazapine 30 mg tablet 30 mg PO HS 06/19/19 06/26/21 History quetiapine 300 mg tablet 100 mg PO BID 07/04/19 06/26/21 History potassium chloride 20 mEq 20 meq PO .COMPLEX #45 tablet 07/14/20 06/26/21 Rx tablet,extended release bisacodyl 5 mg PO BID 12/22/20 06/26/21 History cetirizine 10 mg PO DAILY 12/22/20 06/26/21 History cholecalciferol (vitamin D3) 50 mcg PO DAILY 12/22/20 06/26/21 History [Vitamin D3] duloxetine 60 mg PO DAILY 12/22/20 06/26/21 History ferrous sulfate 325 mg PO DAILY 12/22/20 06/26/21 History furosemide 20 mg PO DAILY 12/22/20 06/26/21 History nabumetone 500 mg PO DAILY 12/22/20 06/26/21 History acetaminop
--- NOTE | 2021-06-25 19:53 | PC.NURSE ---
small bm - pt cleaned at this time with soap and water. Pt necklaces x 2 removed, placed in blue hazard bag and given to patient. pt will give to son, but wants to keep her watch on.
--- NOTE | 2021-06-25 20:02 | PC.NURSE ---
VRBO FROM ERP DR SIM FOR MORPHINE 1MG TO BE GIVEN PRIOR TO CENTRAL LINE PLACEMENT.
--- NOTE | 2021-06-25 20:13 | PC.NURSE ---
Per pt in adjoining bed, she reports that whenever pt is alone in room with son, he begins yelling at her that it is her fault he is out of oxys. ED MD and Charge Nurse Bianka notified.
[2021-06-25] MEDS: SODIUM CHLORIDE 0.9% IV 1,000 ML 999 ML (20:30)
--- NOTE | 2021-06-25 20:30 | PC.NURSE ---
Per [facility] per Dr Briceño, give 1L NS bolus IV.
[2021-06-25] MEDS: MORPHINE SULFATE (*CRX) 2 MG/ML INJ 1 MG IV PUSH (20:41)
[2021-06-25] MEDS: NOREPINEPHRINE 8 MG/D5W 250 ML 8 MG/250 ML BAG 9.38 MG IV CONT (21:07)
--- NOTE | 2021-06-25 22:31 | ADMIMU ---
This patient, Domonique Gonzalse, was admitted to ICU status, and placed in Intensive Care Unit-9 at 2150 on 06/25/21. Patient/family oriented to hospital policies and general routines including ID bracelet, bed and alarms, visiting hours, pain management, procedures, bathroom and other care routines, on / personal items, smoking policy, room service/diet, and visiting hours. Information on how to activate the Rapid Response Team has been discussed. Patient/Family are encouraged to report perceived risks to care and to ask questions if they do not understand what they are told or what they should do.
[2021-06-25] MEDS: SODIUM CHLORIDE 0.9% IV 1,000 ML 125 ML IV CONT (22:54)
[2021-06-25] MEDS: HYDROmorphone HCL INJ (*CRX) 1 MG/ML SYR 0.5 MG IV PUSH (22:54)
[2021-06-26] VITALS (29 sets, daily range): BP systolic 60–122; BP diastolic 32–94; PULSE 82–146; RESP 15–29; TEMP 36.1–38.2; O2SAT 88–98
[2021-06-26] MEDS: FIDAXOMICIN 200 MG TABLET PO ×3 (00:39→19:44)
--- NOTE | 2021-06-26 04:01 | ECG_ITS ---
Measurements Intervals [place] Rate: 140 P: 13 OK: 173 QRS: 10 QRSD: 100 T: 107 QT: 347 QTc: 531 Interpretive Statements ATRIAL FLUTTER/TACHYCARDIA WITH RAPID VENTRICULAR RESPONSE CONSIDER INFERIOR INFARCT, AGE INDETERMINATE ST-T WAVE ABNORMALITY IN HIGH LATERAL LEADS- CONSIDER ISCHEMIA BASELINE ARTIFACT- II, III, AVF, V4-V6 ABNORMAL ECG Electronically Signed On 06-29-2021 17:50:03 ESCROW PROCESSOR by Marcos Figueroa D.O.
[2021-06-26] MEDS: HYDROmorphone HCL INJ (*CRX) 1 MG/ML SYR 2 MG IV PUSH (04:31)
[2021-06-26 04:40] LABS: Basophils Absolute Auto 0.1 K/mm3 (0.0-0.1); Basophils Percent Auto 0.5 % (0.2-1.2); Eosinophils Absolute Auto 0.1 K/mm3 (0-0.3); Eosinophils Percent Auto 0.2 % (0-4.4); Hematocrit 36.8 % (37.0-47.0); Hemoglobin 12.5 g/dL (12.0-15.0); Immature Granulocyte Absolute 0.35 K/mm3 (0.00-0.031); Immature Granulocyte Percent A 1.4 % (0-0.5); Lymphocytes Absolute Auto 0.51 K/mm3 (0.9-3.2); Mean Corpuscular Volume 91.3 fl (80-100); Mean Platelet Volume 9.6 fl (7.4-10.4); Monocytes Absolute Auto 2.1 K/mm3 (0.1-0.6); Neutrophils Absolute Auto 22.4 K/mm3 (1.3-6.7); Neutrophils Percent Auto 87.9 % (45.5-73.1); Nucleated Red Blood Cells Perc 0.1 % (0.0-0.2); Platelet Count Result 635 k/mm3 (150-375); Red Blood Count 4.03 M/mm3 (4.2-5.4); Red Cell Distribution Width 13.2 % (11.5-14.5); White Blood Count 25.5 K/mm3 (4.5-10.0)
[2021-06-26 05:00] LABS: Anion Gap 13 mmol/L (8-16); Blood Urea Nitrogen 31 mg/dL (7-17); Calcium 6.6 mg/dL (8.4-10.2); Carbon Dioxide 16 mmol/L (22-30); Chloride 99 mmol/L (98-107); Estimated CRCL calculation 29 ml/min; Estimated Glomerular Filt Rate 37; Glucose 143 mg/dL (65-110); Magnesium 1.2 mg/dL (1.6-2.3); Phosphorus 5.5 mg/dL (2.5-4.5); Potassium 3.6 mmol/L (3.4-5.0); Sodium 128 mmol/L (137-145)
[2021-06-26] MEDS: VASOPRESSIN INJ 100 UNITS in DEXTROSE 5% 95 ML IV CONT (08:06)
[2021-06-26] MEDS: SODIUM CHLORIDE 0.9% IV 1,000 ML 125 ML IV CONT (08:10)
[2021-06-26] MEDS: PANTOPRAZOLE SODIUM IV 40 MG VIAL IV PUSH (08:11)
[2021-06-26] MEDS: SODIUM BICARBONATE 8.4% 150 MEQ in DEXTROSE 5% 1,000 ML 950 ML 100 MEQ IV CONT ×2 (09:15→19:42)
[2021-06-26] MEDS: ALBUTEROL SULFATE (*SP) AEROSOL 1 PUFF INHALATION ×4 (09:18→20:14)
--- NOTE | 2021-06-26 11:33 | PM.CNGS ---
Assessment and Plan Assessment and plan (1) Toxic megacolon due to Clostridioides difficile: Code(s): A04.72 - Enterocolitis due to Clostridium difficile, not specified as recurrent Status: Acute Assessment and Plan: long d/w pt and son, they would like to cont conservative mgmt c abx for now, if no improvement will need total colectomy, ileostomy, cont supportive care for now (2) Sepsis: Code(s): A41.9 - Sepsis, unspecified organism Status: Acute Assessment and Plan: cont abx, po Vanc, Flagyl, Vanc enema, pressors as needed History of Present Illness Consult details Consult date: 06/26/21 Reason for consult: abdominal pain Requesting physician: Benjamín Yates MD Narrative: The patient is a 71-year-old female that presented complaining of severe diffuse abdominal pain, weakness. The patient has been recently discharged and has been on antibiotics for UTI, pneumonia. The patient has multiple medical issues, including chronic pain for which she has a pain pump, coronary artery disease. The patient is quite debilitated at this point and most history is obtained via her son and the chart. The patient was found to be in septic shock in the emergency depart and has been subsequently admitted to the ICU. Imaging in the emergency department is significant for what looks to be a diffuse colitis. 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) Serum potassium elevated Surgical History Surgical History Cataract extraction status H/O abdominal hysterectomy H/O colonoscopy H/O laminectomy H/O lumbar discectomy H/O Spinal surgery History of bilateral hip arthroplasty I am not sure if they replaced or repaired Hx of cholecystectomy S/P CABG (coronary artery bypass graft) S/P CABG x 3 Family History Family History Mother Depression Cerebrovascular accident Sibling Depression Father Cerebrovascular accident, Onset Age: 83 Family history of coronary artery disease Patient's father is Other Diabetes mellitus Family history of arthritis Hypertension Social History Social History Social History: The patient tells me that she recently quit smoking. She denies any alcohol except she does occasionally have a beer 2. She has 2 sons. She is disabled. She desires to be a full code. She says her sons are the durable power contracts attorney for healthcare. She is . Smoking packs per day: 0.5 Smoking cigarettes per day: 10.0 Years smoked: 30 Smoking pack-years: 15.00 Smoking status: Former smoker Tobacco type: cigarettes Second hand tobacco smoke exposure: No Smoking end date: 06/25/06 Alcohol intake: current Drinks per week: 1 Substance use: never Substance use type: does not use Gender identity (if verbalized by the patient): Female Spiritual care concerns: Yes (orthodoxy) Meds Home Medications and Allergies Home Medications Medication Instructions Recorded Confirmed Type mirtazapine 30 mg tablet 30 mg PO HS 06/19/19 06/26/21 History quetiapine 300 mg tablet 100 mg PO BID 07/04/19 06/26/21 History potassium chloride 20 mEq 20 meq PO .COMPLEX #45 tablet 07/14/20 06/26/21 Rx tablet,extended release bisacodyl 5 mg PO BID 12/22/20 06/26/21 History cetirizine 10 mg PO DAILY 12/22/20 06/26/21 History cholecalciferol (vitamin D3) 50 mcg PO DAILY 12/22/20 06/26/21 History [Vitamin D3] duloxetine 60 mg PO DAILY 12/22/20 06/26/21 History ferrous
[2021-06-26] MEDS: VANCOMYCIN ORAL 500 MG/10 ML SYRUP PO ×2 (12:08→17:12)
[2021-06-26] MEDS: fentaNYL CITRATE INJ (*CRX) 100 MCG/2 ML VIAL 25 MCG IV PUSH ×4 (12:08→19:42)
[2021-06-26] MEDS: ALBUMIN HUMAN 25% 25 GM/100 ML 100 ML IVPB ×3 (12:12→20:45)
--- NOTE | 2021-06-26 12:22 | WPDCNINT ---
Assessment and Plan Assessment and plan (1) Septic shock: Code(s): A41.9 - Sepsis, unspecified organism; R65.21 - Severe sepsis with septic shock Status: Acute Assessment and Plan: Patient presented with lethargy, severe diffuse abdominal pain, was found to be hypotensive which was refractory to IV fluids. Central line was inserted his right femoral vein after right IJ was wanted was unsuccessful -patient started on Levophed, was tachycardic, so it was switched to phenylephrine, and vasopressin -maintain mean arterial pressures > 65 mmHg -lactic acid is trending up -likely related toxic megacolon/infectious colitis -discussed with surgery and GI, will discontinue Zosyn. Add p.o. vancomycin, Flagyl, vancomycin enema, patient is already on fidaxomicin -if lactic acid is trending up patient will be taken for surgery (2) Toxic megacolon due to Clostridioides difficile: Code(s): A04.72 - Enterocolitis due to Clostridium difficile, not specified as recurrent Status: Acute Assessment and Plan: Discussed with surgery, conservative management for now with antibiotics, if no improvement will need total colectomy, ileostomy. (3) Acute renal insufficiency: Code(s): N28.9 - Disorder of kidney and ureter, unspecified Status: Acute Assessment and Plan: Acute renal insufficiency likely related to hypotension, septic shock -renal function improving -continue to maintain adequate mean arterial pressures for end organ perfusion -continue to monitor renal function, electrolytes urine -trend lactic acid (4) Hypomagnesemia: Code(s): E83.42 - Hypomagnesemia Status: Acute Assessment and Plan: Will replace magnesium (5) DVT prophylaxis: Code(s): Z29.9 - Encounter for prophylactic measures, unspecified Status: Acute Assessment and Plan: Heparin subQ Additional Plan Discussed with patient, she wants conservative management before now Code status: Full code Critical care time spent: 47 minutes Discussed with GI and surgery This dictation may have been done utilizing a voice recognition system. Attempts have been made to correct errors. However, there may be uncorrected grammatical, spelling, and recognition errors present. Due to a high probability of clinically significant, life threatening deterioration, the patient required my highest level of preparedness to intervene emergently and I personally spent this critical care time directly and personally managing the patient. This critical care time included obtaining a history; examining the patient; pulse oximetry; ordering and review of studies; arranging urgent treatment with development of a management plan; evaluation of patient's response to treatment; frequent reassessment; and discussions with other providers. It was exclusive of separately billable procedures and treating other patients and teaching time. 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 According the records patient has recently recovered from COVID-19 sclera June 07. She has been feeling weak for the past several days and had diarrhea. Patient was also positive for C diff. she also [facility] She denies any fevers or chills. In the ER patient was found to be hypotensive which was refractory to IV fluids. Patient did receive adequate IV fluids, central line was inserted in right femoral vein after right IJ was attempted but
[2021-06-26 12:25] LABS: Reflex Lactic Acid Yes or No Add Lactic
[2021-06-26 13:01] LABS: Lactic Acid 3.6 mmol/L (0.7-2.1)
--- NOTE | 2021-06-26 13:21 | WPDGICN ---
Assessment and Plan Assessment and plan (1) Septic shock: Code(s): A41.9 - Sepsis, unspecified organism; R65.21 - Severe sepsis with septic shock Status: Acute Assessment and Plan: she is acutely ill and on pressors with severe colitis, most likely related to C diff. Started on oral vancomyin/dificid, will give iv flagyl and vanco enema surgery on board, if does not respond to medical treatment most likely will need colectomy will repeat lactic level with renal function again she is quite uncomfortable discussed with icu and surgery team (2) Colitis: Code(s): K52.9 - Noninfective gastroenteritis and colitis, unspecified Status: Acute Assessment and Plan: treatment for severe C diff probably will need total colectomy (3) Toxic megacolon due to Clostridioides difficile: Code(s): A04.72 - Enterocolitis due to Clostridium difficile, not specified as recurrent Status: Acute (4) Acute renal insufficiency: Code(s): N28.9 - Disorder of kidney and ureter, unspecified Status: Acute Assessment and Plan: continue to monitor treatment in icu (5) History of implantable cardioverter-defibrillator (ICD) placement: Code(s): Z95.810 - Presence of automatic (implantable) cardiac defibrillator Status: Acute (6) CAD (coronary artery disease): Code(s): I25.10 - Atherosclerotic heart disease of [place] coronary artery without angina pectoris Status: Acute GI Consult Note Consult date/time: 06/26/21 13:21 Reason for consult: colitis, septic shock HPI: Domonique Gonzales is a 71 year old female with medical history of anemia, cervical fusion with chronic pain on pain pump, hyponatremia with previous hospitalization few weeks ago with uti due to E coli bacteremia and diffuse abdominal pain, also had chronic cholecystitis treated medically, also recently recovered from COVID-19 about 3 weeks ago. She came here yesterday with severe diffuse abdominal pain, weakness and lethargy, also more diarrhea and noted low blood pressures at the alf (she was in rehab after recent hospitalization). In the ER she was found to be hypotensive which was refractory to IV fluids, then central line was inserted and admitted to ICU. She had white blood cell count of 23.8, INR of 1.1, sodium of 126, creatinine of 1.6. Initial lactic was 1.5 but today up to 3.0, magnesium was 1.2. CT scan of the abdomen and pelvis reviewed, showed interval development of diffuse abnormal thickening of the colon and rectum, consistent with colitis, likely infectious. Patchy ground-glass opacities in the lower lungs compatible with pneumonia. She is on pressors, acutely ill with significant abdominal pain. Based on records she had C diff in the past. Review of Systems Constitutional: Constitutional: Reports fatigue and Reports weakness Eyes: Eyes: Denies blurry vision ENT: Reports Normal hearing present Cardiovascular: Cardiovascular: Denies chest pain Respiratory: Respiratory: Denies cough Gastrointestinal: Gastrointestinal: Reports abdominal pain and Reports diarrhea Genitourinary: Genitourinary: Reports no additional female genitourinary complaints Musculoskeletal: Comments: chronic pain Neurologic: Reports system reviewed and no additional complaints, except as documented Psychiatric: Psychiatric: Reports no additional psychiatric complaints PMFSH Past Medical History Medical History Anemia, unspecified Anxiety Cervical fusion syndrome Chronic pain Hyperlipidemia Hyponatremia Pain 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 patient-controlled analgesia (RUG WASHER) Serum potassium elevated Surgical History Surgical History Cataract extraction status H/O abdominal hysterectomy H/O colonoscopy H/O laminectomy H/O lumbar discectomy H/O Spinal surgery History of bilateral hip arthroplasty I am not sure if
--- NOTE | 2021-06-26 13:46 | WPDANESEPP ---
Anes - Eval Pre Procedure Procedure: exploratory laparotomy, poss colectomy, poss ileostomy Date/Time: 06/26/21 13:46 Surgeon: Dr. Lyman Preop Diagnosis: Sepsis, toxic megacolon secondary to Cdiff Pre Op Diagnosis: Septic shock, colitis, acute renal sufficiency Patient Data Age: 71 Gender: F Height: 1.63 m Weight: 59.8 kg Last Vital Signs Temp 100.3 F H 06/26/21 12:25 Pulse 122 H 06/26/21 12:41 Resp 19 06/26/21 06:00 BP 104/77 06/26/21 12:41 Pulse Ox 92 06/26/21 06:00 Allergies Allergy/AdvReac Type Severity Reaction Status Date / Time ciprofloxacin Allergy Severe Unresponsiv Verified 06/02/21 10:13 e Home Medications Medication Instructions Recorded Confirmed Type mirtazapine 30 mg tablet 30 mg PO HS 06/19/19 06/26/21 History quetiapine 300 mg tablet 100 mg PO BID 07/04/19 06/26/21 History potassium chloride 20 mEq 20 meq PO .COMPLEX #45 tablet 07/14/20 06/26/21 Rx tablet,extended release bisacodyl 5 mg PO BID 12/22/20 06/26/21 History cetirizine 10 mg PO DAILY 12/22/20 06/26/21 History cholecalciferol (vitamin D3) 50 mcg PO DAILY 12/22/20 06/26/21 History [Vitamin D3] duloxetine 60 mg PO DAILY 12/22/20 06/26/21 History ferrous sulfate 325 mg PO DAILY 12/22/20 06/26/21 History furosemide 20 mg PO DAILY 12/22/20 06/26/21 History nabumetone 500 mg PO DAILY 12/22/20 06/26/21 History acetaminophen [Mapap 650 mg PO Q6H PRN #30 tablet 12/30/20 06/26/21 Rx (acetaminophen)] aspirin [Children's Aspirin] 81 mg PO DAILY@0800 #30 tablet 12/30/20 06/26/21 Rx atorvastatin 40 mg tablet 40 mg PO DAILY #90 tablet 01/15/21 06/26/21 Rx pantoprazole 40 mg tablet,delayed 40 mg PO DAILY #90 tablet 01/15/21 06/26/21 Rx release quetiapine 200 mg tablet 200 mg PO QHS #30 tablet 01/28/21 06/26/21 Rx buspirone 10 mg PO TID 05/14/21 06/26/21 History tamsulosin 0.4 mg PO QAM #30 cap 05/21/21 06/26/21 Rx nitroglycerin 0.4 mg sublingual 0.4 mg SUBLINGUAL Q5MIN PRN #30 06/21/21 06/26/21 Rx tablet tablet albuterol sulfate [ProAir HFA] 1 puff INHALATION QID 06/26/21 06/26/21 History carvedilol 6.25 mg PO Q12H 06/26/21 06/26/21 History cyclobenzaprine 5 mg PO BID 06/26/21 06/26/21 History docusate sodium 100 mg PO DAILY 06/26/21 06/26/21 History loperamide 2 mg PO Q6H PRN 06/26/21 06/26/21 History naldemedine [Symproic] 0.2 mg PO DAILY 06/26/21 06/26/21 History ondansetron HCl [Zofran] 4 mg PO Q6H PRN 06/26/21 06/26/21 History oxycodone-acetaminophen 1 tablet PO Q4H PRN 06/26/21 06/26/21 History sodium chloride 1 g PO BID 06/26/21 06/26/21 History Laboratory Tests 06/25/21 06/25/21 06/25/21 17:43 17:43 17:48 WBC 23.8 K/mm3 H K/mm3 (4.5-10.0) RBC 3.11 M/mm3 L M/mm3 (4.2-5.4) Hgb 9.9 g/dL L g/dL (12.0-15.0) Hct 29.2 % L % (37.0-47.0) MCV 93.9 fl fl (80-100) MCH 31.8 pg pg (26-34) MCHC 33.9 g/dl g/dl (32-36) RDW 13.2 % % (11.5-14.5) Plt Count 408 k/mm3 H D k/mm3 (150-375) MPV 9.2 fl fl (7.4-10.4) Immature Gran % (Auto) 1.5 % H % (0-0.5) Neut % (Auto) 89.9 % H % (45.5-73.1) Lymph % (Auto) 1.7 % L % (18.3-44.2) [place] % (Auto) 6.5 % % (2.6-8.5) Eos % (Auto) 0.0 % % (0-4.4) Baso % (Auto) 0.4 % % (0.2-1.2) Lymph # (Auto) 0.41 K/mm3 L K/mm3 (0.9-3.2) [place] # (Auto) 1.6 K/mm3 H K/mm3 (0.1-0.6) Eos # (Auto) 0.0 K/mm3 K/mm3 (0-0.3) Baso # (Auto) 0.1 K/mm3 K/mm3 (0.0-0.1) Abs Immat Gran (auto) 0.36 K/mm3 H K/mm3 (0.00-0.031) Absolute Neuts (auto) 21.3 K/mm3 H K/mm3 (1.3-6.7) Absolute Nucleated RBC 0.0 K/mm3 K/mm3 (0.0-0.012) Nucleated RBC % 0.0 % % (0.0-0.2) Platelet Estimate Increased (Adequate) Ovalocytes 1+ (NORMAL) PT INR APTT Sodium Potassium Chl
[2021-06-26] MEDS: HEPARIN SODIUM 5,000 UNITS/ML VIAL 5000 UNITS SUB-Q (14:15)
[2021-06-26] MEDS: metroNIDAZOLE 500 MG/ISO 100ML 500 MG/100 ML BAG 100 MG IVPB ×2 (14:16→17:12)
[2021-06-26] MEDS: VANCOMYCIN ENEMA RECTAL ×2 (14:18→17:12)
[2021-06-26] MEDS: MAGNESIUM SULF 2 GM/WATER 50ML 2 GM/50 ML BAG IVPB (15:21)
[2021-06-26 16:30] LABS: Lactic Acid Reflex 3.2 mmol/L (0.7-2.1)
[2021-06-26 20:16] LABS: Lactic Acid Reflex 5.4 mmol/L (0.7-2.1)
--- NOTE | 2021-06-26 21:16 | WPDHPUPDATE1 ---
History and Physical Update Update Date/Time: 06/26/21 21:16 History and Physical has been reviewed, including an updated exam of the patient. There are NO changes in the patient's condition. Risks, benefits, and alternatives have been discussed and questions answered. Patient agrees to proceed with procedure. Worsening acidosis and pressor requirement despite antibiotic treatment. Long d/w pt and POA and decision to proceed to OR for exploration and likely subtotal colectomy
--- NOTE | 2021-06-26 23:05 | SUR.OPER ---
specimen given to lab by whitney reyna at [id number]
--- NOTE | 2021-06-26 23:24 | W.PM.PROC2 ---
Procedure Note - Detailed Date of Procedure 06/26/21 Pre-op Diagnosis Septic shock, toxic megacolon, intra-abdominal compartment syndrome Post-op Diagnosis same Procedure Performed subtotal colectomy with creation of end ileostomy Surgeon Claudia Lyman MD Anesthesia general Indications 71-year-old female with multiple medical issues presenting with toxic megacolon secondary to C diff colitis. The patient was admitted to the ICU and started on proper antibiotics for C diff colitis, however continued to have worsening sepsis. Given this, decision was made for emergency surgery Findings 2 L of intra-abdominal ascites, diffuse toxic megacolon Description of Procedure The patient was taken to the operating and placed in the supine position. After adequate induction of general anesthesia, the patient was prepped and draped in the normal sterile fashion. A time-out was then done to verify the patient's identity, as well as the procedure being performed. I began by making a generous midline incision and carrying this down into the abdominal cavity. Upon entering the peritoneal cavity, a large amount of ascites was noted. Approximately 2 L of ascites was evacuated from the patient's abdomen. Immediately after evacuation, it was noted that the patient had improved hemodynamics as well as respiratory improvement. I then began in examination of the abdomen. It was noted that the small intestine was completely normal. The colon was diffusely distended and edematous, consistent with toxic megacolon. I then decided to perform a subtotal colectomy. I began by mobilizing the right colon and hepatic flexure. Once this was done, I transected the ileum approximately 10 cm from the ileocecal valve with the 55 FLEX stapler. I then took down the mesenteric attachments of the right colon using the LigaSure device. I then proceed to take down the omental adhesions to the transverse colon and subsequently mobilized the splenic flexure. I then took down the mesenteric attachments of the transverse colon as well as the descending colon using the LigaSure device. I then mobilized the left colon all the way distally to the level of the upper rectum. I then used the LigaSure device to take down the mesenteric attachments to the left colon. I then transected the distal sigmoid colon, upper rectum using a thick tissue contour stapler. The colon was then sent to pathology for further review. Then gained hemostasis by packing the pelvis and holding pressure. I then examined the rest of the abdomen, noting no obvious pathology. I then made an ileostomy site in the right lower quadrant. This was done by making a cruciate incision in the fascia and taking a disc of skin and subcutaneous tissue above. I was then able to bring out the distal ileum through this ileostomy site. Given the amount of ascites, I placed drain in the pelvis coming out through the right lower quadrant. I then closed the incision at the fascial level with looped 0 PDS suture x2. The skin was closed with skin stanislaw. I then matured the ileostomy using interrupted 3-0 Vicryl sutures and a chitimacha fashion. Sterile dressing including ileostomy supplies were placed. The patient will now be transferred back to the ICU in critical condition. Estimated Blood Loss 150 Drains Yes Packing No Pathology yes Complications No immediate complications Condition critical Disposition ICU
[2021-06-27] VITALS (40 sets, daily range): BP systolic 63–112; BP diastolic 48–68; PULSE 81–118; RESP 16–28; TEMP 33.8–37.3; O2SAT 93–99
[2021-06-27 00:03] LABS: Glucose Point of Care 191 mg/dl (65-105)
[2021-06-27] MEDS: metroNIDAZOLE 500 MG/ISO 100ML 500 MG/100 ML BAG 100 MG IVPB ×2 (00:44→06:29)
[2021-06-27 01:44] LABS: Alveolar/Arterial O2 Gradient 429.5 mmHg; Base Excess ABG -10.7 mEq/l (+/-2.0); Carboxyhemoglobin 0.3 % THb (0-2.0); Fractional Inspired Oxygen 80 %; HCO3 ABG 18.9 mEq/l (22.0-26.0); Methemoglobin ABG 0.3 %THb (0-1.5); Oxygen Content ABG 13.7 %vol (16.0-22.0); Oxygen Saturation ABG 90.4 % (95.0-100.0); Oxyhemoglobin 89.6 % THb (90.0-100.0); PO2 ABG 77.7 mmHg (80.0-100.0); PO2 FiO2 Ratio Arterial Blood 0.97 %; Reduced Hemoglobin 9.8 %THb (0-5.0); Total Hemoglobin 10.8 g/dL (12.0-18.0)
[2021-06-27 01:45] LABS: PCO2 ABG 60.2 mmHg (35.0-45.0); pH ABG 7.114 (7.350-7.450)
[2021-06-27 01:46] LABS: Arterial Blood Gas PEEP 5 cmH2O; Arterial Blood Gas Tidal Volume 300 ml; Arterial Blood Gas Vent Mode CMV; Arterial Blood Gas Ventilator rate 16 /MIN; Device VENTILATOR; Site Drawn RIGHT BRACHIAL
[2021-06-27] MEDS: MIDAZOLAM 100MG/NS 100ML(*CRX) 100 MG/100 ML BAG IV CONT (02:24)
[2021-06-27] MEDS: FENTANYL 2,500MCG/NS250ML(*CRX 2,500 MCG/250 ML BAG IV CONT (02:25)
[2021-06-27 03:30] LABS: Reflex Lactic Acid Yes or No Add Lactic
[2021-06-27] MEDS: ALBUMIN HUMAN 25% 25 GM/100 ML 100 ML IVPB ×4 (04:49→20:57)
[2021-06-27 05:19] LABS: Hemoglobin 9.9 g/dL (12.0-15.0); Mean Corpuscular Hemoglobin 31.4 pg (26-34); Mean Corpuscular Volume 95.2 fl (80-100); Mean Platelet Volume 10.2 fl (7.4-10.4); Platelet Count Result 204 k/mm3 (150-375); Red Blood Count 3.15 M/mm3 (4.2-5.4); Red Cell Distribution Width 13.7 % (11.5-14.5); White Blood Count 43.5 K/mm3 (4.5-10.0)
[2021-06-27 05:33] LABS: Alanine Aminotransferase 23 U/L (4-35); Albumin Level 2.2 g/dL (3.5-5.1); Alkaline Phosphatase 219 U/L (38-126); Anion Gap 10 mmol/L (8-16); Aspartate Amino Transferase 93 U/L (14-36); Bilirubin,Total 0.7 mg/dL (0.2-1.3); Blood Urea Nitrogen 35 mg/dL (7-17); Calcium 5.8 mg/dL (8.4-10.2); Carbon Dioxide 24 mmol/L (22-30); Chloride 90 mmol/L (98-107); Estimated CRCL calculation 28 ml/min; Estimated Glomerular Filt Rate 34; Glucose 239 mg/dL (65-110); Magnesium 1.7 mg/dL (1.6-2.3); Phosphorus 6.6 mg/dL (2.5-4.5); Potassium 3.7 mmol/L (3.4-5.0); Sodium 124 mmol/L (137-145)
[2021-06-27 05:49] LABS: Lactic Acid Reflex 5.7 mmol/L (0.7-2.1)
[2021-06-27] MEDS: HEPARIN SODIUM 5,000 UNITS/ML VIAL 5000 UNITS SUB-Q ×2 (06:28→16:02)
[2021-06-27] MEDS: SODIUM BICARBONATE 8.4% 150 MEQ in DEXTROSE 5% 1,000 ML 950 ML 100 MEQ IV CONT ×2 (06:29→16:04)
[2021-06-27 07:15] LABS: HCO3 ABG 20.9 mEq/l (22.0-26.0); PCO2 ABG 41.9 mmHg (35.0-45.0); PO2 ABG 72.6 mmHg (80.0-100.0); pH ABG 7.316 (7.350-7.450)
[2021-06-27 07:16] LABS: Alveolar/Arterial O2 Gradient 453.8 mmHg; Base Excess ABG 4.9 mEq/l (+/-2.0); Carboxyhemoglobin 0.2 % THb (0-2.0); Device VENTILATOR; Fractional Inspired Oxygen 80 %; Methemoglobin ABG 0.2 %THb (0-1.5); Oxygen Content ABG 13.5 %vol (16.0-22.0); Oxygen Saturation ABG 93.4 % (95.0-100.0); Oxyhemoglobin 92.1 % THb (90.0-100.0); PO2 FiO2 Ratio Arterial Blood 0.91 %; Reduced Hemoglobin 7.5 %THb (0-5.0); Site Drawn RIGHT BRACHIAL; Total Hemoglobin 10.4 g/dL (12.0-18.0)
[2021-06-27 07:17] LABS: Arterial Blood Gas PEEP 5 cmH2O; Arterial Blood Gas Tidal Volume 300 ml; Arterial Blood Gas Vent Mode CMV; Arterial Blood Gas Ventilator rate 24 /MIN
--- NOTE | 2021-06-27 08:36 | PM.PNGS ---
Progress Note: A&P Assessment and Plan (1) Toxic megacolon due to Clostridioides difficile: Code(s): A04.72 - Enterocolitis due to Clostridium difficile, not specified as recurrent Status: Acute Assessment and Plan: s/p subtotal colectomy c end ileostomy (2) Septic shock: Code(s): A41.9 - Sepsis, unspecified organism; R65.21 - Severe sepsis with septic shock Status: Acute Assessment and Plan: cont supportive care, abx, wean pressors as caren Subjective Subjective Date/Time Seen: 06/27/21 08:36 intubated, sedated, pressor requirements improving Review of Systems Review of Systems: ROS unobtainable: Yes unobtainable due to medical condition Exam Const: General: ill appearing Other: intubated, sedated Resp: Effort & Inspection: normal respiratory effort Auscultation: diminished lung sounds Cardio: Rate: tachycardic Rhythm: regular rhythm GI: Inspection: normal to inspection and incision GI Palp: Yes Soft to palpation Other: LUZ ELENA c s/s output, ileostomy pink/viable Objective Data Vital Signs Vital Signs: Vital Signs - 24 hr 06/26/21 09:15 06/26/21 09:16 06/26/21 10:00 Temperature 38.2 C H Pulse Rate 128 H 128 H 128 H Respiratory Rate 18 Blood Pressure 74/56 L 74/56 L 94/66 L Pulse Oximetry 94 06/26/21 12:00 06/26/21 12:25 06/26/21 12:41 Temperature 37.9 C H 37.9 C H Pulse Rate 131 H 122 H Respiratory Rate 18 Blood Pressure 103/88 104/77 Pulse Oximetry 92 06/26/21 12:42 06/26/21 14:00 06/26/21 16:00 Temperature 37.7 C H 37.1 C Pulse Rate 117 H 120 H 97 Respiratory Rate 19 29 H Blood Pressure 97/80 L 109/78 115/94 H Pulse Oximetry 90 98 06/26/21 18:00 06/26/21 19:41 06/26/21 20:00 Temperature 36.1 C L Pulse Rate 95 120 H 116 H Respiratory Rate 18 Blood Pressure 122/72 90/73 L Pulse Oximetry 97 95 06/26/21 20:14 06/26/21 20:56 06/26/21 23:50 Temperature 36.6 C Pulse Rate 119 H 120 H 82 Respiratory Rate 23 H Blood Pressure 90/74 L 107/66 Pulse Oximetry 94 95 06/27/21 00:00 06/27/21 00:11 06/27/21 00:26 Temperature 33.8 C L 33.8 C L 33.8 C L Pulse Rate 93 Respiratory Rate 16 Blood Pressure 112/62 Pulse Oximetry 95 06/27/21 00:35 06/27/21 00:41 06/27/21 00:56 Temperature 33.9 C L 34.1 C L Pulse Rate 81 Respiratory Rate Blood Pressure Pulse Oximetry 97 06/27/21 01:11 06/27/21 01:26 06/27/21 01:41 Temperature 34.1 C L 34.3 C L Pulse Rate 87 Respiratory Rate Blood Pressure 107/68 Pulse Oximetry 06/27/21 02:00 06/27/21 02:11 06/27/21 02:23 Temperature 34.2 C L 34.4 C L Pulse Rate 99 Respiratory Rate 18 Blood Pressure 91/65 L 88/68 L Pulse Oximetry 98 06/27/21 02:24 06/27/21 02:25 06/27/21 02:41 Temperature 35 C L Pulse Rate 98 98 Respiratory Rate 28 H 20 Blood Pressure Pulse Oximetry 06/27/21 03:11 06/27/21 03:30 06/27/21 04:00 Temperature 35.2 C L 36.9 C Pulse Rate 101 H 112 H Respiratory Rate 28 H 24 H Blood Pressure 85/62 L Pulse Oximetry 98 06/27/21 05:00 06/27/21 06:00 06/27/21 07:27 Temperature 36.9 C 37.2 C Pulse Rate 109 H 112 H 101 H Respiratory Rate 26 H 28 H Blood Pressure 90/65 L Pulse Oximetry 99 98 Intake/Output Intake/Output: Intake & Output 06/24/21 06/25/21 06/26/21 06/27/21 23:59 23:59 23:59 23:59 Intake Total 2049 3950 1805 Output Total 1075 380 Balance 2049 5615 8995 Meds/Results Medications: Active Medications Generic Name Dose Route Start Last Admin Trade Name Freq PRN Reason Stop Dose Admin Albuterol 1 puff 06/26/21 08:00 06/26/21 20:14 Albuterol Sulfate (*Sp) Aerosol 1 Puff INHALATION 1 puff QIDRT PADMINI Administration Duloxetine HCl 60 mg 06/26/21 09:00 Duloxetine Hcl 60 Mg Capsule.Dr PO DAILY [facility] Fentanyl Citrate 25 mcg 06/26/21 07:21 06/26/21 19:42 Fentanyl Citrate Inj (*Crx) 100 Mcg/2 Ml Vial IV PUSH 25 mcg Q2H PRN Administ
[2021-06-27] MEDS: CALCIUM GLUC 2,000 MG/NS 100ML 2,000 MG/100 ML BAG 100 MG IVPB (09:01)
[2021-06-27] MEDS: PANTOPRAZOLE SODIUM IV 40 MG VIAL IV PUSH (09:09)
--- NOTE | 2021-06-27 10:02 | WPDANESPN ---
Anes - Prog Note Post-Op Date/Time: 06/27/21 10:02 Cardiovascular status: other (systolic 90's) Respiratory status: other (pt remains on mechanical ventilator) Airway patency: other (ETT remains) Mental status: other (pt sedated with versed/fentanyl drips) Vital Signs: Last Vital Signs Temp 98.9 F 06/27/21 06:00 Pulse 101 H 06/27/21 07:27 Resp 28 H 06/27/21 07:27 BP 90/65 L 06/27/21 06:00 Pulse Ox 98 06/27/21 06:00 Pain Score (VAS): 0 I/O: Intake & Output 06/26/21 06/27/21 06/27/21 23:59 07:59 15:59 Intake Total 1705 1805 255 Output Total 350 380 Balance 1355 1425 255 Laboratory Tests 06/27/21 04:58 06/27/21 04:58 06/26/21 06/26/21 06/26/21 12:36 16:10 20:00 WBC RBC Hgb Hct MCV MCH MCHC RDW Plt Count MPV Puncture Site ABG pH ABG pCO2 ABG pO2 ABG PO2/FiO2 Ratio ABG HCO3 ABG O2 Saturation ABG O2 Content ABG Base Excess A-a Gradient Oxyhemoglobin Carboxyhemoglobin Methemoglobin Reduced Hemoglobin Total Hemoglobin O2 Delivery Device O2 Liters/Min Minute Volume Vent Rate Vent Mode FiO2 Tidal Volume PEEP Peak Inspir Pressure Pressure Support Sodium Potassium Chloride Carbon Dioxide Anion Gap BUN Creatinine Estim Creat Clear Calc Estimated GFR Glucose POC Capillary Glucose Lactic Acid 3.6 H 3.2 H 5.4 H* Calcium Phosphorus Magnesium Total Bilirubin AST ALT Alkaline Phosphatase Total Protein Albumin 06/27/21 06/27/21 06/27/21 00:01 00:26 01:28 WBC RBC Hgb Hct MCV MCH MCHC RDW Plt Count MPV Puncture Site Right brachial ABG pH 7.114 L* ABG pCO2 60.2 H* ABG pO2 77.7 L ABG PO2/FiO2 Ratio 0.97 ABG HCO3 18.9 L ABG O2 Saturation 90.4 L ABG O2 Content 13.7 L ABG Base Excess -10.7 A-a Gradient 429.5 Oxyhemoglobin 89.6 L Carboxyhemoglobin 0.3 Methemoglobin 0.3 Reduced Hemoglobin 9.8 H Total Hemoglobin 10.8 L O2 Delivery Device Ventilator O2 Liters/Min Not Reportable Minute Volume Not Reportable Vent Rate 16 Vent Mode Cmv FiO2 80 Tidal Volume 300 PEEP 5 Peak Inspir Pressure Not Reportable Pressure Support Not Reportable Sodium Potassium Chloride Carbon Dioxide Anion Gap BUN Creatinine Estim Creat Clear Calc Estimated GFR Glucose POC Capillary Glucose 191 H Lactic Acid 7.0 H* Calcium Phosphorus Magnesium Total Bilirubin AST ALT Alkaline Phosphatase Total Protein Albumin 06/27/21 06/27/21 06/27/21 04:58 04:58 04:58 WBC 43.5 H RBC 3.15 L Hgb 9.9 L Hct 30.0 L MCV 95.2 MCH 31.4 MCHC 33.0 RDW 13.7 Plt Count 204 D MPV 10.2 Puncture Site ABG pH ABG pCO2 ABG pO2 ABG PO2/FiO2 Ratio ABG HCO3 ABG O2 Saturation ABG O2 Content ABG Base Excess A-a Gradient Oxyhemoglobin Carboxyhemoglobin Methemoglobin Reduced Hemoglobin Total Hemoglobin O2 Delivery Device O2 Liters/Min Minute Volume Vent Rate Vent Mode FiO2 Tidal Volume PEEP Peak Inspir Pressure Pressure Support Sodium 124 L Potassium 3.7 Chloride 90 L Carbon Dioxide 24 Anion Gap 10 BUN 35 H Creatinine 1.50 H Estim Creat Clear Calc 28 Estimated GFR 34 L Glucose 239 H POC Capillary Glucose Lactic Acid 5.7 H* Calcium 5.8 L Phosphorus 6.6 H Magnesium 1.7 Total Bilirubin 0.7 AST 93 H ALT 23 Alkaline Phosphatase 219 H Total Protein 4.0 L Albumin 2.2 L 06/27/21 06:46 WBC RBC Hgb Hct MCV MCH MCHC RDW Plt Count MPV Puncture Site Right brachial ABG pH 7.316 L ABG pCO2 41.9 ABG pO2 72.6 L ABG PO2/FiO2 Ratio 0.91 ABG HCO3 20.9 L ABG
[2021-06-27] MEDS: MINERAL OIL/WHITE PETROLATUM OINTMENT 1 APPLIC EACH EYE ×2 (10:10→21:03)
[2021-06-27 11:03] LABS: Lactic Acid Reflex 3.9 mmol/L (0.7-2.1)
--- NOTE | 2021-06-27 11:09 | WPDGIPROGNO ---
Progress Note: A&P Assessment and Plan (1) Toxic megacolon due to Clostridioides difficile: Code(s): A04.72 - Enterocolitis due to Clostridium difficile, not specified as recurrent Status: Acute Assessment and Plan: s/p subtotal colectomy c end ileostomy by surgery (2) Septic shock: Code(s): A41.9 - Sepsis, unspecified organism; R65.21 - Severe sepsis with septic shock Status: Acute Assessment and Plan: on pressors, significant leukocytosis icu management intubated and sedated critically ill (3) Acute renal insufficiency: Code(s): N28.9 - Disorder of kidney and ureter, unspecified Status: Acute Assessment and Plan: creatinine stable at 1.5 (4) CAD (coronary artery disease): Code(s): I25.10 - Atherosclerotic heart disease of [place] coronary artery without angina pectoris Status: Acute (5) History of implantable cardioverter-defibrillator (ICD) placement: Code(s): Z95.810 - Presence of automatic (implantable) cardiac defibrillator Status: Acute (6) Chronic pain: Code(s): G89.29 - Other chronic pain Status: Chronic (7) Leukocytosis: Code(s): D72.829 - Elevated white blood cell count, unspecified Status: Acute Assessment and Plan: on abx, monitor (8) Hyponatremia: Code(s): E87.1 - Hypo-osmolality and hyponatremia Status: Acute Subjective Date/time seen: 06/27/21 11:09 Interval history: she finally had total colectomy last night because worsening medical status (found to have severe colitis with ascites). Now she is intubated, on pressors. Review of Systems Review of Systems: All systems reviewed & are unremarkable except as noted in HPI and below Exam Const: General: ill appearing Other: intubated, sedated HENMT: General nose exam: Normal nares present Eyes: General: appearance normal, both eyes and all related structures Neck: Neck: supple Resp: Effort & Inspection: normal respiratory effort Auscultation: diminished lung sounds Cardio: Rate: tachycardic Rhythm: regular rhythm GI: Inspection: normal to inspection and incision GI Palp: Yes Soft to palpation Other: LUZ ELENA c s/s output, ileostomy pink/viable Urinary Catheter: Urinary Catheter: patent and draining Skin: General skin exam: no rashes or lesions noted Neuro: Other: sedated Extrem: General: normal to inspection Psych: Other: unable to assess Objective Data Vital Signs Vital Signs: Vital Signs - 24 hr 06/26/21 12:00 06/26/21 12:25 06/26/21 12:41 Temperature 100.2 F H 100.3 F H Pulse Rate 131 H 122 H Respiratory Rate 18 Blood Pressure 103/88 104/77 Pulse Oximetry 92 06/26/21 12:42 06/26/21 14:00 06/26/21 16:00 Temperature 99.8 F H 98.8 F Pulse Rate 117 H 120 H 97 Respiratory Rate 19 29 H Blood Pressure 97/80 L 109/78 115/94 H Pulse Oximetry 90 98 06/26/21 18:00 06/26/21 19:41 06/26/21 20:00 Temperature 97 F L Pulse Rate 95 120 H 116 H Respiratory Rate 18 Blood Pressure 122/72 90/73 L Pulse Oximetry 97 95 06/26/21 20:14 06/26/21 20:56 06/26/21 23:50 Temperature 97.8 F Pulse Rate 119 H 120 H 82 Respiratory Rate 23 H Blood Pressure 90/74 L 107/66 Pulse Oximetry 94 95 06/27/21 00:00 06/27/21 00:11 06/27/21 00:26 Temperature 93 F L 93 F L 93 F L Pulse Rate 93 Respiratory Rate 16 Blood Pressure 112/62 Pulse Oximetry 95 06/27/21 00:35 06/27/21 00:41 06/27/21 00:56 Temperature 93.1 F L 93.3 F L Pulse Rate 81 Respiratory Rate Blood Pressure Pulse Oximetry 97 06/27/21 01:11 06/27/21 01:26 06/27/21 01:41 Temperature 93.3 F L 93.7 F L Pulse Rate 87 Respiratory Rate Blood Pressure 107/68 Pulse Oximetry 06/27/21 02:00 06/27/21 02:11 06/27/21 02:23 Temperature 93.6 F L 94 F L Pulse Rate 99 Respiratory Rate 18 Blood Pressure 91/65 L 88/68 L Pulse Oximetry 98 06/27/21 02:24 06/27/21 02:25 06/27/21
--- NOTE | 2021-06-27 11:19 | PM.IMPN ---
Progress Note: A&P Assessment and Plan (1) Septic shock: Code(s): A41.9 - Sepsis, unspecified organism; R65.21 - Severe sepsis with septic shock Status: Acute Assessment and Plan: Patient presented with lethargy, severe diffuse abdominal pain, was found to be hypotensive which was refractory to IV fluids. Central line was inserted his right femoral vein after right IJ was wanted was unsuccessful -patient started on Levophed, was tachycardic, so it was switched to phenylephrine, and vasopressin -maintain mean arterial pressures > 65 mmHg -lactic acid is trending up -likely related toxic megacolon/infectious colitis -discussed with surgery and GI, will discontinue Zosyn. Add p.o. vancomycin, Flagyl, vancomycin enema, patient is already on fidaxomicin -if lactic acid is trending up patient will be taken for surgery (2) Toxic megacolon due to Clostridioides difficile: Code(s): A04.72 - Enterocolitis due to Clostridium difficile, not specified as recurrent Status: Acute Assessment and Plan: Discussed with surgery, conservative management for now with antibiotics, if no improvement will need total colectomy, ileostomy. (3) Acute renal insufficiency: Code(s): N28.9 - Disorder of kidney and ureter, unspecified Status: Acute Assessment and Plan: Acute renal insufficiency likely related to hypotension, septic shock -renal function improving -continue to maintain adequate mean arterial pressures for end organ perfusion -continue to monitor renal function, electrolytes urine -trend lactic acid (4) Hypomagnesemia: Code(s): E83.42 - Hypomagnesemia Status: Acute Assessment and Plan: Will replace magnesium (5) DVT prophylaxis: Code(s): Z29.9 - Encounter for prophylactic measures, unspecified Status: Acute Assessment and Plan: Heparin subQ Additional Plan 06/27/2021 Patient had total colectomy last night, currently intubated sedated, requiring pressors and antibiotics. Plan is to continue current plan of care and treatment monitor electrolytes hemoglobin WBC count. Continue with vent support for now Code status: Full code Discussed with GI and surgery Case discussed with nursing staff and ICU attending. Subjective Date/time seen: 06/27/21 11:19 Interval history: 06/27/2021 Patient is intubated and sedated present time. Patient requiring pressors and antibiotic. Patient had total colectomy last night because worsening medical status (found to have severe colitis with ascites). Now she is intubated, on pressors. Review of Systems Review of Systems: All systems reviewed & are unremarkable except as noted in HPI and below ROS unobtainable: Yes unobtainable due to medical condition (Severe sepsis) Exam Narrative: General: Patient is uncomfortable, in pain HEENT: Dry oral mucosa, pupils equal and reactive, sclera is clear Neck: Supple, no cervical lymphadenopathy Respiratory: Coarse breath sounds bilaterally, decreased at bases, air entry is adequate Cardiac: Sinus tachycardia, Abdomen: Distended, diffuse tenderness to palpation, positive guarding Extremities: No edema, decreased pedal pulses, extremities are cool, mottling noted on lower extremities Neuro: Patient is awake, alert, answers to questions follows simple command, moves all extremities spontaneously Skin: Cool and dry Psych: Anxious, in pain Const: General: cooperative, comfortable, no acute distress, well developed, alert, awake and ill appearing chronically Nutritional Appearance: thin Orientation/consciousness: oriented to person, oriented to place, oriented to time and patient oriented x3 HENMT: Head: normal to inspection, normocephalic and atraumatic Ears: hearing grossly normal bilaterally and external ears normal General nose exam: Normal external nose present Face and sinus: normal facial exam Mouth: Yes Normal oral and palatal mucosa present and Yes dry mucous m
--- NOTE | 2021-06-27 13:53 | WPDINTPN ---
Progress Note: A&P Assessment and Plan (1) Septic shock: Code(s): A41.9 - Sepsis, unspecified organism; R65.21 - Severe sepsis with septic shock Status: Acute Assessment and Plan: Patient presented with lethargy, severe diffuse abdominal pain, was found to be hypotensive which was refractory to IV fluids. Central line was inserted his right femoral vein after right IJ was wanted was unsuccessful -septic shock likely related to toxic megacolon, infectious colitis -patient on phenylephrine and vasopressin which are being weaned down -maintain mean arterial pressures > 65 mmHg -lactic acid trending down, continue to follow -patient status post subtotal colectomy with end ileostomy -patient was restarted on Zosyn by surgery (2) Toxic megacolon due to Clostridioides difficile: Code(s): A04.72 - Enterocolitis due to Clostridium difficile, not specified as recurrent Status: Acute Assessment and Plan: 06/26/2021: Status post subtotal colectomy with creation of end ileostomy. Patient had 2 L of ascites in her abdomen and her colon was severely distended per discussion with surgeon. She could also have had intra-abdominal hypertension/compartment syndrome -pressor requirements are trending down -LUZ ELENA drain in place -surgery following closely (3) Acute renal insufficiency: Code(s): N28.9 - Disorder of kidney and ureter, unspecified Status: Acute Assessment and Plan: Acute renal insufficiency likely related to hypotension, septic shock -renal function stable -continue to maintain adequate mean arterial pressures for end organ perfusion -continue to monitor renal function, electrolytes urine -lactic acid trending down -will give albumin due to fluid shifts (4) Electrolyte abnormality: Code(s): E87.8 - Other disorders of electrolyte and fluid balance, not elsewhere classified Status: Acute (5) DVT prophylaxis: Code(s): Z29.9 - Encounter for prophylactic measures, unspecified Status: Acute Assessment and Plan: Heparin subQ Additional Plan Code status: Full code Critical care time spent: 33 minutes Discussed with GI and surgery This dictation may have been done utilizing a voice recognition system. Attempts have been made to correct errors. However, there may be uncorrected grammatical, spelling, and recognition errors present. Due to a high probability of clinically significant, life threatening deterioration, the patient required my highest level of preparedness to intervene emergently and I personally spent this critical care time directly and personally managing the patient. This critical care time included obtaining a history; examining the patient; pulse oximetry; ordering and review of studies; arranging urgent treatment with development of a management plan; evaluation of patient's response to treatment; frequent reassessment; and discussions with other providers. It was exclusive of separately billable procedures and treating other patients and teaching time. Please see Assessment and Plan section and the rest of the note for further information on patient assessment and treatment Subjective Date/time seen: 06/27/21 13:53 Interval history: Reason for consult: Septic shock, colitis, acute kidney injury, acidosis. -06/26/2021: Patient was taken for subtotal colectomy with creation of end ileostomy 06/27/2021: Patient was taken for surgery subtotal colectomy with creation of end ileostomy last evening. Patient remains intubated on CMV mode of ventilation, peep of 5 and 40% FiO2. Currently afebrile, adequate urine output. WBC count has bumped up to 43.5. Hemoglobin is down to 9.9. Lactic acid 5.7 this morning from 7.0 overnight. Sedated with fentanyl and Versed infusion, does not open her eyes or follow simple commands. Patient remains on phenylephrine and vasopressin which are being weaned down. On carb infusion Review of Systems Review of System
[2021-06-27 14:56] LABS: Lactic Acid Reflex 3.9 mmol/L (0.7-2.1)
[2021-06-27 17:48] LABS: Reflex Lactic Acid Yes or No Add Lactic
[2021-06-27 18:23] LABS: Lactic Acid 5.3 mmol/L (0.7-2.1)
[2021-06-27] MEDS: hetaSTARCH 6%/NACL 500 ML 250 ML IV CONT (18:28)
[2021-06-27 19:05] LABS: Basophils Absolute Auto 0.2 K/mm3 (0.0-0.1); Basophils Percent Auto 0.4 % (0.2-1.2); Eosinophils Absolute Auto 1.5 K/mm3 (0-0.3); Eosinophils Percent Auto 2.8 % (0-4.4); Immature Granulocyte Absolute 21.94 K/mm3 (0.00-0.031); Immature Granulocyte Percent A 41.5 % (0-0.5); Lymphocytes Absolute Auto 4.31 K/mm3 (0.9-3.2); Lymphocytes Percent Auto 8.2 % (18.3-44.2); Mean Corpuscular HGB Conc 33.5 g/dl (32-36); Mean Corpuscular Hemoglobin 31.5 pg (26-34); Mean Corpuscular Volume 93.9 fl (80-100); Mean Platelet Volume 9.6 fl (7.4-10.4); Monocytes Absolute Auto 2.4 K/mm3 (0.1-0.6); Monocytes Percent Auto 4.6 % (2.6-8.5); Neutrophils Absolute Auto 22.5 K/mm3 (1.3-6.7); Neutrophils Percent Auto 42.5 % (45.5-73.1); Nucleated Red Blood Cells Absolute Auto 3.4 K/mm3 (0.0-0.012); Nucleated Red Blood Cells Perc 6.3 % (0.0-0.2); Platelet Count Result 81 k/mm3 (150-375); Red Blood Count 2.13 M/mm3 (4.2-5.4); Red Cell Distribution Width 13.9 % (11.5-14.5)
[2021-06-27 19:08] LABS: Hemoglobin 6.7 g/dL (12.0-15.0); White Blood Count 52.9 K/mm3 (4.5-10.0)
[2021-06-27 19:32] LABS: Anion Gap 12 mmol/L (8-16); Blood Urea Nitrogen 36 mg/dL (7-17); Calcium 5.3 mg/dL (8.4-10.2); Carbon Dioxide 25 mmol/L (22-30); Chloride 81 mmol/L (98-107); Estimated CRCL calculation 26 ml/min; Estimated Glomerular Filt Rate 32; Glucose 334 mg/dL (65-110); Potassium 3.3 mmol/L (3.4-5.0); Sodium 118 mmol/L (137-145)
[2021-06-27] MEDS: LIDOCAINE HCL 1% PF INJ 5 ML VIAL INFILTRATE (21:36)
[2021-06-27] MEDS: SODIUM CHLORIDE 0.9% IV 250 ML 30 ML IV CONT (23:49)
[2021-06-28] VITALS (42 sets, daily range): BP systolic 72–137; BP diastolic 45–93; PULSE 96–123; RESP 19–30; TEMP 36.9–37.7; O2SAT 91–99; BMI 24.7
[2021-06-28] MEDS: SODIUM BICARBONATE 8.4% 150 MEQ in DEXTROSE 5% 1,000 ML 950 ML 100 MEQ IV CONT ×2 (02:31→12:51)
[2021-06-28 05:43] LABS: Alveolar/Arterial O2 Gradient 301.3 mmHg; Base Excess ABG -5.2 mEq/l (+/-2.0); Carboxyhemoglobin 0.2 % THb (0-2.0); Fractional Inspired Oxygen 55 %; HCO3 ABG 19.7 mEq/l (22.0-26.0); Methemoglobin ABG 0.3 %THb (0-1.5); Oxygen Content ABG 13.4 %vol (16.0-22.0); PO2 ABG 50.8 mmHg (80.0-100.0); PO2 FiO2 Ratio Arterial Blood 0.92 %; Reduced Hemoglobin 13.9 %THb (0-5.0); Total Hemoglobin 11.1 g/dL (12.0-18.0); pH ABG 7.355 (7.350-7.450)
[2021-06-28 05:45] LABS: Device VENTILATOR; Modified Allen's Test Pass; Oxygen Saturation ABG 84.8 % (95.0-100.0); Oxyhemoglobin 85.6 % THb (90.0-100.0); Site Drawn LEFT RADIAL
[2021-06-28 05:46] LABS: Arterial Blood Gas PEEP 5 cmH2O; Arterial Blood Gas Tidal Volume 350 ml; Arterial Blood Gas Vent Mode CMV; Arterial Blood Gas Ventilator rate 20 /MIN
[2021-06-28 05:53] LABS: Hematocrit 29.5 % (37.0-47.0); Hemoglobin 10.1 g/dL (12.0-15.0); Immature Platelet Fraction Pct 7.6 % (0.9-11.2); Mean Corpuscular HGB Conc 34.2 g/dl (32-36); Mean Corpuscular Hemoglobin 31.1 pg (26-34); Mean Corpuscular Volume 90.8 fl (80-100); Mean Platelet Volume 11.3 fl (7.4-10.4); Platelet Count Result 40 k/mm3 (150-375); Red Blood Count 3.25 M/mm3 (4.2-5.4); Red Cell Distribution Width 13.7 % (11.5-14.5)
[2021-06-28 06:08] LABS: Alanine Aminotransferase 54 U/L (4-35); Albumin Level 2.1 g/dL (3.5-5.1); Alkaline Phosphatase 447 U/L (38-126); Anion Gap 15 mmol/L (8-16); Aspartate Amino Transferase 258 U/L (14-36); Bilirubin,Total 0.6 mg/dL (0.2-1.3); Blood Urea Nitrogen 37 mg/dL (7-17); Carbon Dioxide 23 mmol/L (22-30); Chloride 82 mmol/L (98-107); Estimated CRCL calculation 22 ml/min; Estimated Glomerular Filt Rate 26; Glucose 209 mg/dL (65-110); Magnesium 1.6 mg/dL (1.6-2.3); Phosphorus 5.3 mg/dL (2.5-4.5); Potassium 3.9 mmol/L (3.4-5.0); Sodium 120 mmol/L (137-145)
[2021-06-28 06:08] LABS: Lactic Acid Reflex 9.6 mmol/L (0.7-2.1)
[2021-06-28] MEDS: NOREPINEPHRINE 8 MG/D5W 250 ML 8 MG/250 ML BAG 9.4 MG (06:38)
[2021-06-28 06:39] LABS: White Blood Count 57.4 K/mm3 (4.5-10.0)
--- NOTE | 2021-06-28 06:43 | PC.NURSE ---
Dr. Yates informed of critical labs and of hypotension. Orders received.
--- NOTE | 2021-06-28 08:23 | PM.IMPN ---
Progress Note: A&P Assessment and Plan (1) Septic shock: Code(s): A41.9 - Sepsis, unspecified organism; R65.21 - Severe sepsis with septic shock Status: Acute Assessment and Plan: Patient admitted w/ WBC 23 and lactic acid 5.3 noted to have colitis. Toxic megacolon 2/2 to c. diff required subtotal colectomy 06/26. Patient currently on phenylephrine, vasopressin and norepinephrine. -Mangement per ICU (2) Toxic megacolon due to Clostridioides difficile: Code(s): A04.72 - Enterocolitis due to Clostridium difficile, not specified as recurrent Status: Acute Assessment and Plan: 06/26/2021: Status post subtotal colectomy with creation of end ileostomy. (3) Acute renal insufficiency: Code(s): N28.9 - Disorder of kidney and ureter, unspecified Status: Acute Assessment and Plan: Acute renal insufficiency likely related to hypotension, septic shock, abdominal compartment syndrome and pressors. Creatinine increasing and BUN mildly elevated. (4) DVT prophylaxis: Code(s): Z29.9 - Encounter for prophylactic measures, unspecified Status: Acute Assessment and Plan: SCDs, platelet counts have dropped to 40 K (5) DIC (disseminated intravascular coagulation): Code(s): D65 - Disseminated intravascular coagulation [defibrination syndrome] Status: Acute Assessment and Plan: Patient in DIC likely related to septic shock, subtotal colectomy. INR elevated, fibrinogen low w/ thrombocytopenia. -Management per ICU Subjective Date/time seen: Date of Service 06/28/21 08:23 Patient admitted overnight intubated and sedated. Review of Systems Review of Systems: ROS unobtainable: Yes unobtainable due to endotracheal tube and unobtainable due to medical condition Exam Narrative: GENERAL: intubated sedated HEENT: Normocephalic, atraumatic, anicteric NECK: Supple CV: normal rrr, no mrg. RESP: poor air movement. No crackles. FiO2 100% Abdomen: Soft, non-tender, non-distended, +BS EXTREMITIES: Extremities are cold SKIN: cold NEURO:intubated and sedated Objective Data Vital Signs Vital Signs: Vital Signs - 24 hr 06/27/21 10:00 06/27/21 12:00 06/27/21 14:00 Temperature Pulse Rate 111 H 109 H 112 H Respiratory Rate 25 H Blood Pressure Pulse Oximetry 94 97 06/27/21 14:53 06/27/21 16:00 06/27/21 16:08 Temperature Pulse Rate 110 H 118 H 115 H Respiratory Rate 20 Blood Pressure 63/55 L 91/48 L Pulse Oximetry 94 97 06/27/21 16:15 06/27/21 20:00 06/27/21 21:05 Temperature 98.8 F Pulse Rate 115 H 110 H 110 H Respiratory Rate 24 H Blood Pressure 91/48 L 104/65 104/65 Pulse Oximetry 96 06/27/21 22:00 06/27/21 22:37 06/27/21 22:48 Temperature 98.7 F 98.7 F 98.6 F Pulse Rate 110 H 109 H 109 H Respiratory Rate 24 H 20 20 Blood Pressure 109/67 109/67 110/58 L Pulse Oximetry 96 95 95 06/27/21 22:53 06/27/21 23:00 06/27/21 23:10 Temperature 98.6 F 98.6 F Pulse Rate 109 H 111 H 110 H Respiratory Rate 20 20 Blood Pressure 106/65 101/62 Pulse Oximetry 95 96 97 06/27/21 23:34 06/27/21 23:43 06/27/21 23:53 Temperature 98.6 F Pulse Rate 108 H 110 H Respiratory Rate 20 Blood Pressure 91/64 L Pulse Oximetry 96 99 06/28/21 00:00 06/28/21 01:13 06/28/21 01:50 Temperature 98.6 F 98.6 F 98.9 F Pulse Rate 109 H 109 H 111 H Respiratory Rate 20 20 20 Blood Pressure 106/57 L 100/66 94/61 L Pulse Oximetry 99 99 97 06/28/21 02:00 06/28/21 02:15 06/28/21 02:30 Temperature 98.9 F 98.8 F Pulse Rate 110 H 110 H 111 H Respiratory Rate 24 H 20 Blood Pressure 94/64 L 91/64 L 91/64 L Pulse Oximetry 95 96 06/28/21 02:33 06/28/21 02:45 06/28/21 03:15 Temperature 98.9 F 99 F 99.1 F Pulse Rate 111 H 111 H 111 H Respiratory Rate 20 20 20 Blood Pressure 99/64 L 90/69 L 92/56 L Pulse Oximetry 95 95 95 06/28/21 03:48 06/28/21 04:00 06/28/21 04:15 Temperature 99.2 F 99.3 F Pulse Rate 11
[2021-06-28 08:49] LABS: Reflex Lactic Acid Yes or No Add Lactic
[2021-06-28 09:06] LABS: Immature Platelet Fraction Pct 7.2 % (0.9-11.2); Platelet Count Result 33 k/mm3 (150-375)
[2021-06-28] MEDS: MINERAL OIL/WHITE PETROLATUM OINTMENT 1 APPLIC EACH EYE (09:10)
[2021-06-28] MEDS: HYDROCORTISONE SODIUM SUCCINATE 100 MG/2 ML VIAL IV PUSH ×2 (09:10→14:27)
[2021-06-28] MEDS: PANTOPRAZOLE SODIUM IV 40 MG VIAL IV PUSH (09:11)
[2021-06-28 09:17] LABS: Magnesium 1.7 mg/dL (1.6-2.3)
[2021-06-28 09:34] LABS: INR 2.2; Prothrombin Time 23.8 Seconds (11.1-14.7)
[2021-06-28 09:36] LABS: Partial Thromboplastin Time 81.9 SECONDS (22.3-36.8)
[2021-06-28 09:46] LABS: Fibrinogen 77 mg/dl (215-510)
[2021-06-28 09:52] LABS: D Dimer 4.45 ug/mL (<0.48)
--- NOTE | 2021-06-28 11:18 | WPDINTPN ---
Progress Note: A&P Assessment and Plan (1) Septic shock: Code(s): A41.9 - Sepsis, unspecified organism; R65.21 - Severe sepsis with septic shock Status: Acute Assessment and Plan: Patient presented with lethargy, severe diffuse abdominal pain, was found to be hypotensive which was refractory to IV fluids. Central line was inserted his right femoral vein after right IJ was wanted was unsuccessful -patient status post subtotal colectomy with end ileostomy -septic shock likely related to toxic megacolon, infectious colitis, post surgery -currently on Levophed, vasopressin and phenylephrine -maintain mean arterial pressures > 65 mmHg -lactic acid significantly elevated -06/25: Blood cultures negative x2, -patient is on Zosyn ( initiated on 06/26/2021) -leukocytosis with a WBC count of 57.4, infectious disease has been consulted, I called Dr. Baugh, he will evaluate the patient (2) Toxic megacolon due to Clostridioides difficile: Code(s): A04.72 - Enterocolitis due to Clostridium difficile, not specified as recurrent Status: Acute Assessment and Plan: 06/26/2021: Status post subtotal colectomy with creation of end ileostomy. Patient had 2 L of ascites in her abdomen and her colon was severely distended per discussion with surgeon. She could also have had intra-abdominal hypertension/compartment syndrome -increasing pressor requirement -LUZ ELENA drain in place -surgery following closely (3) Acute renal insufficiency: Code(s): N28.9 - Disorder of kidney and ureter, unspecified Status: Acute Assessment and Plan: Acute renal insufficiency likely related to hypotension, septic shock -kidney functions worsening likely related to septic shock, hypotension, multiple vasopressors -continue to maintain adequate mean arterial pressures for end organ perfusion -continue to monitor renal function, electrolytes urine -lactic acid trending up -continue albumin for fluid shift (4) DVT prophylaxis: Code(s): Z29.9 - Encounter for prophylactic measures, unspecified Status: Acute Assessment and Plan: SCDs, platelet counts have dropped to 40 K (5) DIC (disseminated intravascular coagulation): Code(s): D65 - Disseminated intravascular coagulation [defibrination syndrome] Status: Acute Assessment and Plan: Patient in DIC likely related to septic shock, subtotal colectomy -patient was anemic with hemoglobin of 6.7 on 06/27/2021 and received 2 units of packed RBCs -fibrinogen is low, INR is elevated, platelet count is low -will transfuse cryoprecipitate, FFP and platelets Additional Plan Will discuss with family Code status: Full code Critical care time spent: 36 minutes This dictation may have been done utilizing a voice recognition system. Attempts have been made to correct errors. However, there may be uncorrected grammatical, spelling, and recognition errors present. Due to a high probability of clinically significant, life threatening deterioration, the patient required my highest level of preparedness to intervene emergently and I personally spent this critical care time directly and personally managing the patient. This critical care time included obtaining a history; examining the patient; pulse oximetry; ordering and review of studies; arranging urgent treatment with development of a management plan; evaluation of patient's response to treatment; frequent reassessment; and discussions with other providers. It was exclusive of separately billable procedures and treating other patients and teaching time. Please see Assessment and Plan section and the rest of the note for further information on patient assessment and treatment Subjective Date/time seen: 06/28/21 11:18 Interval history: Reason for consult: Septic shock, colitis, acute kidney injury, acidosis. -06/26/2021: Patient was taken for subtotal colectomy with creation of end ileostomy 06/28/2021: Patient
[2021-06-28 12:35] LABS: Lactic Acid Reflex 15.3 mmol/L (0.7-2.1)
[2021-06-28] MEDS: EPINEPHrine INJ 1 MG in DEXTROSE 5% IN WATER 250 ML 75.3 MG IV CONT (12:45)
[2021-06-28 12:46] LABS: Alveolar/Arterial O2 Gradient 606.1 mmHg; Base Excess ABG -7.2 mEq/l (+/-2.0); Fractional Inspired Oxygen 100 %; Oxygen Content ABG 9.5 %vol (16.0-22.0); Oxygen Saturation ABG 90.2 % (95.0-100.0); Oxyhemoglobin 88.3 % THb (90.0-100.0); PCO2 ABG 41.8 mmHg (35.0-45.0); PO2 ABG 65.1 mmHg (80.0-100.0); PO2 FiO2 Ratio Arterial Blood 0.65 %
[2021-06-28] MEDS: SODIUM BICARBONATE 8.4% 50 MEQ/50 ML SYRINGE 100 MEQ IV PUSH (12:47)
[2021-06-28] MEDS: EPINEPHrine INJ 1 MG/10 ML SYRINGE IV PUSH (12:48)
[2021-06-28 12:49] LABS: pH ABG 7.276 (7.350-7.450)
[2021-06-28 12:50] LABS: Device VENTILATOR; Site Drawn ARTLINE; Total Hemoglobin 7.6 g/dL (12.0-18.0)
[2021-06-28] MEDS: VASOPRESSIN INJ 100 UNITS in DEXTROSE 5% 95 ML IV CONT (12:50)
[2021-06-28 12:51] LABS: Arterial Blood Gas PEEP 5 cmH2O; Arterial Blood Gas Tidal Volume 350 ml; Arterial Blood Gas Vent Mode CMV; Arterial Blood Gas Ventilator rate 24 /MIN
--- NOTE | 2021-06-28 13:06 | PM.PNGS ---
Progress Note: A&P Assessment and Plan (1) Toxic megacolon due to Clostridioides difficile: Code(s): A04.72 - Enterocolitis due to Clostridium difficile, not specified as recurrent Status: Acute Assessment and Plan: status post subtotal colectomy, ileostomy, continues to rapidly decline, discussion with the power of agricultural appraiser (son) and reinforced that all further intervention would be futile at this point (2) DIC (disseminated intravascular coagulation): Code(s): D65 - Disseminated intravascular coagulation [defibrination syndrome] Status: Acute Assessment and Plan: oozing from all surgical sites, continue to place factors for now (3) Septic shock: Code(s): A41.9 - Sepsis, unspecified organism; R65.21 - Severe sepsis with septic shock Status: Acute Assessment and Plan: overwhelming at this point, reinforced to family that patient will not survive Subjective Subjective Date/Time Seen: 06/28/21 13:06 Pt seen and examined. Labs reviewed. Cont to decline rapidly and require maximal pressor support. Pt now oozing blood from all incision sites, including drain, ostomy site. Review of Systems Review of Systems: ROS unobtainable: Yes unobtainable due to medical condition Exam Const: Other: intubated, sedated Resp: Auscultation: diminished lung sounds Cardio: Rate: tachycardic GI: Inspection: normal to inspection, distended and incision GI Palp: Yes Soft to palpation Other: bloody drainage from all incision sites, ostomy c some stool Objective Data Vital Signs Vital Signs: Vital Signs - 24 hr 06/27/21 14:00 06/27/21 14:53 06/27/21 16:00 Temperature Pulse Rate 112 H 110 H 118 H Respiratory Rate 20 Blood Pressure 63/55 L Pulse Oximetry 94 97 06/27/21 16:08 06/27/21 16:15 06/27/21 20:00 Temperature 37.1 C Pulse Rate 115 H 115 H 110 H Respiratory Rate 24 H Blood Pressure 91/48 L 91/48 L 104/65 Pulse Oximetry 96 06/27/21 21:05 06/27/21 22:00 06/27/21 22:37 Temperature 37.1 C 37.1 C Pulse Rate 110 H 110 H 109 H Respiratory Rate 24 H 20 Blood Pressure 104/65 109/67 109/67 Pulse Oximetry 96 95 06/27/21 22:48 06/27/21 22:53 06/27/21 23:00 Temperature 37.0 C 37.0 C Pulse Rate 109 H 109 H 111 H Respiratory Rate 20 20 Blood Pressure 110/58 L 106/65 Pulse Oximetry 95 95 96 06/27/21 23:10 06/27/21 23:34 06/27/21 23:43 Temperature 37.0 C Pulse Rate 110 H 108 H Respiratory Rate 20 Blood Pressure 101/62 Pulse Oximetry 97 96 06/27/21 23:53 06/28/21 00:00 06/28/21 01:13 Temperature 37.0 C 37.0 C 37.0 C Pulse Rate 110 H 109 H 109 H Respiratory Rate 20 20 20 Blood Pressure 91/64 L 106/57 L 100/66 Pulse Oximetry 99 99 99 06/28/21 01:50 06/28/21 02:00 06/28/21 02:15 Temperature 37.2 C 37.2 C 37.1 C Pulse Rate 111 H 110 H 110 H Respiratory Rate 20 24 H 20 Blood Pressure 94/61 L 94/64 L 91/64 L Pulse Oximetry 97 95 96 06/28/21 02:30 06/28/21 02:33 06/28/21 02:45 Temperature 37.2 C 37.2 C Pulse Rate 111 H 111 H 111 H Respiratory Rate 20 20 Blood Pressure 91/64 L 99/64 L 90/69 L Pulse Oximetry 95 95 06/28/21 03:15 06/28/21 03:48 06/28/21 04:00 Temperature 37.3 C 37.3 C Pulse Rate 111 H 112 H 112 H Respiratory Rate 20 24 H Blood Pressure 92/56 L 95/67 L Pulse Oximetry 95 94 06/28/21 04:15 06/28/21 05:14 06/28/21 06:00 Temperature 37.4 C 37.7 C H Pulse Rate 112 H 114 H 108 H Respiratory Rate 24 H 24 H Blood Pressure 104/81 81/64 L Pulse Oximetry 95 94 06/28/21 06:38 06/28/21 07:27 06/28/21 08:00 Temperature 37.7 C H Pulse Rate 108 H 115 H 117 H Respiratory Rate 24 H Blood Pressure 90/68 L 104/93 H 119/87 Pulse Oximetry 95 06/28/21 08:05 06/28/21 10:00 06/28/21 11:59 Temperature Pulse Rate 114 H 120 H 112 H Respiratory Rate 30 H Blood Pressure 130/60 Pulse Oximetry 95 94 06/28/21 12:00 Temperature Pulse Rate 111 H Respiratory Rate Blood Press
[2021-06-28] MEDS: NOREPINEPHRINE 8 MG/D5W 250 ML 8 MG/250 ML BAG 56.25 MG IV CONT (13:19)
[2021-06-28] MEDS: ALBUMIN HUMAN 25% 25 GM/100 ML 100 ML IVPB (14:02)
[2021-06-28] MEDS: EPINEPHrine INJ 4 MG in DEXTROSE 5% IN WATER 250 ML 19.05 MG IV CONT (15:04)
--- NOTE | 2021-06-28 16:29 | WPDINFPN2 ---
Progress Note: A&P Assessment and Plan (1) Septic shock: Code(s): A41.9 - Sepsis, unspecified organism; R65.21 - Severe sepsis with septic shock Status: Acute Assessment and Plan: Septic shock and leukemoid reaction due to toxic megacolon and (probably) C diff infection. POD #2. REC Meropenem #1 empirically, adjust for her renal insufficiency. Histopath from OR is in process. Poor prognosis. Subjective Date/time seen: 06/28/21 16:29 Objective Data Vital Signs Vital Signs: Vital Signs - 24 hr 06/27/21 20:00 06/27/21 21:05 06/27/21 22:00 Temperature 37.1 C 37.1 C Pulse Rate 110 H 110 H 110 H Respiratory Rate 24 H 24 H Blood Pressure 104/65 104/65 109/67 Pulse Oximetry 96 96 06/27/21 22:37 06/27/21 22:48 06/27/21 22:53 Temperature 37.1 C 37.0 C 37.0 C Pulse Rate 109 H 109 H 109 H Respiratory Rate 20 20 20 Blood Pressure 109/67 110/58 L 106/65 Pulse Oximetry 95 95 95 06/27/21 23:00 06/27/21 23:10 06/27/21 23:34 Temperature 37.0 C Pulse Rate 111 H 110 H 108 H Respiratory Rate 20 Blood Pressure 101/62 Pulse Oximetry 96 97 06/27/21 23:43 06/27/21 23:53 06/28/21 00:00 Temperature 37.0 C 37.0 C Pulse Rate 110 H 109 H Respiratory Rate 20 20 Blood Pressure 91/64 L 106/57 L Pulse Oximetry 96 99 99 06/28/21 01:13 06/28/21 01:50 06/28/21 02:00 Temperature 37.0 C 37.2 C 37.2 C Pulse Rate 109 H 111 H 110 H Respiratory Rate 20 20 24 H Blood Pressure 100/66 94/61 L 94/64 L Pulse Oximetry 99 97 95 06/28/21 02:15 06/28/21 02:30 06/28/21 02:33 Temperature 37.1 C 37.2 C Pulse Rate 110 H 111 H 111 H Respiratory Rate 20 20 Blood Pressure 91/64 L 91/64 L 99/64 L Pulse Oximetry 96 95 06/28/21 02:45 06/28/21 03:15 06/28/21 03:48 Temperature 37.2 C 37.3 C Pulse Rate 111 H 111 H 112 H Respiratory Rate 20 20 Blood Pressure 90/69 L 92/56 L Pulse Oximetry 95 95 06/28/21 04:00 06/28/21 04:15 06/28/21 05:14 Temperature 37.3 C 37.4 C Pulse Rate 112 H 112 H 114 H Respiratory Rate 24 H 24 H Blood Pressure 95/67 L 104/81 Pulse Oximetry 94 95 94 06/28/21 06:00 06/28/21 06:38 06/28/21 07:27 Temperature 37.7 C H Pulse Rate 108 H 108 H 115 H Respiratory Rate 24 H Blood Pressure 81/64 L 90/68 L 104/93 H Pulse Oximetry 06/28/21 08:00 06/28/21 08:05 06/28/21 10:00 Temperature 37.7 C H Pulse Rate 117 H 114 H 120 H Respiratory Rate 24 H 30 H Blood Pressure 119/87 130/60 Pulse Oximetry 95 06/28/21 11:59 06/28/21 12:00 06/28/21 12:45 Temperature Pulse Rate 112 H 111 H 116 H Respiratory Rate Blood Pressure 86/52 L Pulse Oximetry 06/28/21 13:17 06/28/21 13:19 06/28/21 13:22 Temperature 37.3 C Pulse Rate 116 H 115 H 113 H Respiratory Rate 23 H Blood Pressure 89/52 L 98/55 L 96/54 L Pulse Oximetry 06/28/21 13:23 06/28/21 13:24 06/28/21 13:41 Temperature 37.1 C Pulse Rate 112 H 112 H 110 H Respiratory Rate 25 H 19 Blood Pressure 137/65 Pulse Oximetry 98 06/28/21 14:05 06/28/21 14:34 06/28/21 15:04 Temperature 36.9 C Pulse Rate 108 H 104 H 104 H Respiratory Rate 22 H Blood Pressure 131/64 124/59 L Pulse Oximetry 91 06/28/21 16:09 Temperature Pulse Rate 102 H Respiratory Rate Blood Pressure 114/58 L Pulse Oximetry Intake/Output Intake/Output: Intake & Output 06/25/21 06/26/21 06/27/21 06/28/21 23:59 23:59 23:59 23:59 Intake Total 2050 1284 2304 4949 Output Total 1075 680 200 Balance 2049 4260 3798 6324 Meds/Results Medications: Active Medications Generic Name Dose Route Start Last Admin Trade Name Freq PRN Reason Stop Dose Admin Albuterol 1 puff 06/26/21 08:00 06/28/21 04:24 Albuterol Sulfate (*Sp) Aerosol 1 Puff INHALATION Not Given QIDRT [facility] Fentanyl Citrate 25 mcg 06/26/21 07:21 06/26/21 19:42 Fentanyl Citrate Inj (*Crx) 100 Mcg/2 Ml Vial IV PUSH 25 mcg Q2H PRN Administration Pain Rated 7-10 Hydrocortisone Sodium Succinate
[2021-06-28 17:40] LABS: Lactic Acid Reflex > 24.0 mmol/L (0.7-2.1)
[2021-06-28 17:41] LABS: Hematocrit 13.8 % (37.0-47.0); Hemoglobin 4.4 g/dL (12.0-15.0)
[2021-06-28] MEDS: NOREPINEPHRINE 8 MG/D5W 250 ML 8 MG/250 ML BAG 75 MG IV CONT (17:47)
--- NOTE | 2021-06-28 18:17 | WPDGIPROGNO ---
Progress Note: A&P Assessment and Plan (1) Septic shock: Code(s): A41.9 - Sepsis, unspecified organism; R65.21 - Severe sepsis with septic shock Status: Acute Assessment and Plan: she is doing worse, significant elevated WBC more hypotensive despite pressors and also DIC prognosis is guarded (2) DIC (disseminated intravascular coagulation): Code(s): D65 - Disseminated intravascular coagulation [defibrination syndrome] Status: Acute Assessment and Plan: blood products by ICU team (3) Toxic megacolon due to Clostridioides difficile: Code(s): A04.72 - Enterocolitis due to Clostridium difficile, not specified as recurrent Status: Acute Assessment and Plan: s/p colectomy (4) Leukocytosis: Code(s): D72.829 - Elevated white blood cell count, unspecified Status: Acute Assessment and Plan: ID on board (5) MARK (acute kidney injury): Code(s): N17.9 - Acute kidney failure, unspecified Status: Acute Subjective Date/time seen: 06/28/21 18:17 Interval history: unfortunately she is doing worse, on more pressors and now DIC Review of Systems Review of Systems: All systems reviewed & are unremarkable except as noted in HPI and below Exam Const: Other: critically ill, intubated and sedated HENMT: General nose exam: Normal nares present Neck: Neck: supple Resp: Other: coarse BS Cardio: Rate: regular rate GI: GI Palp: Yes Soft to palpation Other: bloody drainage from all incision sites, ostomy c some stool Urinary Catheter: Urinary Catheter: patent and draining Neuro: Other: sedated Extrem: General: pedal edema Psych: Other: unable to assess Objective Data Vital Signs Vital Signs: Vital Signs - 24 hr 06/27/21 20:00 06/27/21 21:05 06/27/21 22:00 Temperature 98.8 F 98.7 F Pulse Rate 110 H 110 H 110 H Respiratory Rate 24 H 24 H Blood Pressure 104/65 104/65 109/67 Pulse Oximetry 96 96 06/27/21 22:37 06/27/21 22:48 06/27/21 22:53 Temperature 98.7 F 98.6 F 98.6 F Pulse Rate 109 H 109 H 109 H Respiratory Rate 20 20 20 Blood Pressure 109/67 110/58 L 106/65 Pulse Oximetry 95 95 95 11/28/21 23:00 06/27/21 23:10 06/27/21 23:34 Temperature 98.6 F Pulse Rate 111 H 110 H 108 H Respiratory Rate 20 Blood Pressure 101/62 Pulse Oximetry 96 97 06/27/21 23:43 06/27/21 23:53 06/28/21 00:00 Temperature 98.6 F 98.6 F Pulse Rate 110 H 109 H Respiratory Rate 20 20 Blood Pressure 91/64 L 106/57 L Pulse Oximetry 96 99 99 06/28/21 01:13 06/28/21 01:50 06/28/21 02:00 Temperature 98.6 F 98.9 F 98.9 F Pulse Rate 109 H 111 H 110 H Respiratory Rate 20 20 24 H Blood Pressure 100/66 94/61 L 94/64 L Pulse Oximetry 99 97 95 06/28/21 02:15 06/28/21 02:30 06/28/21 02:33 Temperature 98.8 F 98.9 F Pulse Rate 110 H 111 H 111 H Respiratory Rate 20 20 Blood Pressure 91/64 L 91/64 L 99/64 L Pulse Oximetry 96 95 06/28/21 02:45 06/28/21 03:15 06/28/21 03:48 Temperature 99 F 99.1 F Pulse Rate 111 H 111 H 112 H Respiratory Rate 20 20 Blood Pressure 90/69 L 92/56 L Pulse Oximetry 95 95 06/28/21 04:00 06/28/21 04:15 06/28/21 05:14 Temperature 99.2 F 99.3 F Pulse Rate 112 H 112 H 114 H Respiratory Rate 24 H 24 H Blood Pressure 95/67 L 104/81 Pulse Oximetry 94 95 94 06/28/21 06:00 06/28/21 06:38 06/28/21 07:27 Temperature 99.8 F H Pulse Rate 108 H 108 H 115 H Respiratory Rate 24 H Blood Pressure 81/64 L 90/68 L 104/93 H Pulse Oximetry 06/28/21 08:00 06/28/21 08:05 06/28/21 10:00 Temperature 99.8 F H Pulse Rate 117 H 114 H 120 H Respiratory Rate 24 H 30 H Blood Pressure 119/87 130/60 Pulse Oximetry 95 06/28/21 11:59 06/28/21 12:00 06/28/21 12:45 Temperature Pulse Rate 112 H 123 H 116 H Respiratory Rate 22 H Blood Pressure 72/45 L 86/52 L Pulse Oximetry 06/28/21 13:17 06/28/21 13:19 06/28/21 13:22 Temperature 99.1 F Pulse Rate 116 H 115 H 11
--- NOTE | 2021-06-28 20:24 | PC.NURSE ---
1920 Awaiting arrival of sisters before comfort care measures are implemented per family request. 1930 Sisters here to see patient, questions asked and answered. 2000 Patient extubated and all medications discontinued as requested by family. 2006 Family at bedside with patient. 2011 Asystole noted to per monitor. No heart sounds heard. Verified x 2 RNs
--- NOTE | 2021-06-28 22:21 | CONS_ITS ---
DATE OF CONSULTATION: 06/28/2021 REASON FOR CONSULTATION: Septic shock. HISTORY OF PRESENT ILLNESS: A 71-year-old female, known to me from the past. She has an analgesic pump in her left abdominal wall as well as an AICD in the left upper chest. She had a Staphylococcus bacteremia in November of this year, 1 set only, not further identified by the lab. She was here in the hospital last month with suspected UTI due to ESBL producing E. coli and was a given IV followed by oral antibiotic. She was seen by her home health nurse on the day of admission when her blood pressure was noted to be systolic of 70, along with marked generalized weakness. She was directed to the emergency room and admitted on the . She had been treated for septic shock with piperacillin, tazobactam. She was taken to the operating room the following day due to worsening clinical status despite empiric metronidazole, oral vancomycin, oral fidaxomicin and vancomycin enema. At the time of her operation, she had 2 L of ascites, diffuse toxic megacolon with normal small intestine. 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 She is on piperacillin postop and consult requested. She cannot provide any additional history. ALLERGIES: CIPROFLOXACIN CAUSED DECREASED LEVEL OF CONSCIOUSNESS. PRESENT MEDICATIONS: List reviewed. No immunosuppressants prior to admission. Here she is on hydrocortisone for her septic shock as an adjunctive treatment. HABITS: Recently quit smoking. Rare alcohol. PAST MEDICAL HISTORY: In addition to the above, anemia, anxiety, cervical fusion, hyperlipidemia, cataract extractions, hysterectomy, lumbar diskectomy, bilateral hip arthroplasties, removal of gallbladder, also CABG. SOCIAL HISTORY: She is . Two children. One of her sons at the bedside. Disabled. Lives locally. FAMILY HISTORY: Stroke, CAD, depression, diabetes, hypertension. REVIEW OF SYSTEMS: 14-point review otherwise as per record, not obtainable from the patient due to intubated and sedated status. PHYSICAL EXAMINATION: GENERAL: This is an elderly female, who appears older than her actual age. Appears acutely ill. She is on 3 pressors and also sedation. VITAL SIGNS: T-max 37.7 last 24 hours. Shortly after arrival, she had a temperature up to 38.2 and became hypothermic early the following morning. Pulse 102, BP 114/58, 100% FiO2, respirations 22. SKIN: Pale. Her feet and fingers are cool to the touch, not cold. No other skin changes. No mottling. NODES: No cervical adenopathy. EENT: Pupils are mildly dilated. Conjunctivae are normal. No icterus. Edentulous, orally intubated. Dry mucous membranes. No thrush. NECK: No masses, thyromegaly. CHEST: She has a PICC in the right upper extremity. Also AICD left upper chest. The latter is without hematoma, skin breakdown. Arterial line also present are in the left femoral. LUNGS: Diminished breath sounds, otherwise clear to auscultation and percussion. CARDIAC: Tachycardic, regular. No murmurs or gallops. ABDOMEN: Distended. No tenderness is apparent. Abdomen is firm. Analgesic pump without skin breakdown or hematoma. EXTREMITIES: 1+ pitting edema in the ankles. LABORATORY DATA: Blood cultures no growth after 3 days incubation. No other microbiology obtained and there is no C. diff assay available for review. White blood cell count 23.8 on admission, 52.9 yesterday, 57.4 today, hemoglobin 10.1, platelets are 33,000 down from 408. Left shift is demonstrated, which is marked. Lactate persistently high. Prothrombin time 23.8, PTT also prolonged. Blood gases show metabolic acidosis with partial respiratory compensation. She has hyponatremia. BUN 37, creatinine 1.9. AST 258, ALT 54, alkaline phosphatase 447 is little higher, alb
--- NOTE | 2021-06-30 08:35 | P.DN_ITS ---
Discharge Summary Date and Time Date of : 06/28/21 Time of : 20:12 Provider Pronounced By: maribell acevedo Probable Cause of Probable Cause of : Septic Shock due to clostridiodes difficile colitis. Summary Hospital Course: Patient presented to the ED from a rehabilitation facility due to weakness and was found to be significantly hypotensive. The patient as found to be in septic shock and was intubated. General surgery was consulted and the patient was taken to the operating room for subtotal colectomy with an end ileostomy. Patient continued to require vasopressors for support. Patient developed renal failure and disseminated intravascular coagulation with a worsening leukocytosis. ID was consulted and recommended meropenem. After discussion with the family, comfort care mesaures were started and the patient was extubated at 1999. The patient at 2011.. Additional Data Confirmation of as documented by pronouncing clinician: Pupillary Reflex, Palpable Pulses, Response to Stimuli, Heart Tones and Breath Sounds Family: at bedside Name of Provider Notified: wilfrid jhaveri Time Provider Notified: 20:23 Was code activated?: No Provider Requests Autopsy: No Family Requests Autopsy: No Outpatient Program Coordinator Notified: Yes Date [facility] Notified of : 06/28/21 Time [facility] Notified of : 20:34 Hospice patient?: No
== END 2021-06-28 20:12 | disposition expired | DRG 853 ==
LOC: ANHED 16:10 → ANHICU 19:58
PROVIDERS: Internal Medicine; Surgery; Admitting Provider Internal Medicine; Emergency Provider Emergency Medicine; PCP Internal Medicine; Visit Provider Family Medicine
PROC: 0D1B0Z4 Bypass Ileum to Cutaneous, Open Approach (ICD-10-PCS; CPT 49000; principal; 2021-06-26 22:00)
DX: A41.9 Sepsis, unspecified organism (principal); R65.21 Severe sepsis with septic shock; D65 Disseminated intravascular coagulation [defibrination syndrome]; A04.72 Enterocolitis due to Clostridium difficile, not specified as recurrent; E87.1 Hypo-osmolality and hyponatremia; E44.0 Moderate protein-calorie malnutrition; N17.9 Acute kidney failure, unspecified; D64.9 Anemia, unspecified; F41.9 Anxiety disorder, unspecified; K21.9 Gastro-esophageal reflux disease without esophagitis; N28.9 Disorder of kidney and ureter, unspecified; I25.10 Atherosclerotic heart disease of native coronary artery without angina pectoris; I73.9 Peripheral vascular disease, unspecified; E78.5 Hyperlipidemia, unspecified; I10 Essential (primary) hypertension; K59.03 Drug induced constipation; K81.1 Chronic cholecystitis; D72.823 Leukemoid reaction; E83.42 Hypomagnesemia; T40.2X5A Adverse effect of other opioids, initial encounter; Z96.643 Presence of artificial hip joint, bilateral; Z86.16 Personal history of COVID-19; Z98.1 Arthrodesis status; Z98.42 Cataract extraction status, left eye; Z98.41 Cataract extraction status, right eye; Z90.49 Acquired absence of other specified parts of digestive tract; Z95.1 Presence of aortocoronary bypass graft; Z87.891 Personal history of nicotine dependence; Z68.24 Body mass index [BMI] 24.0-24.9, adult; Z95.810 Presence of automatic (implantable) cardiac defibrillator
CPT/HCPCS: 36415; 36430; 36556; 36569; 36600; 71045; 74018; 74177; 80048; 80053; 81003; 82375; 82805; 82948; 83050; 83605; 83690; 83735; 84100; 85014; 85018; 85025; 85027; 85049; 85055; 85380; 85384; 85610; 85730; 86850; 86900; 86901; 86920; 87040; 88307; 93005; 94003; 94640; 96361; 96365; 96366; 96367; 96375; 96376; 99291; A9270; C1751; C9113; G0378; J0131; J0171; J0610; J1170; J1644; J1720; J1940; J2250; J2270; J2370; J2543; J2704; J3010; J3475; J7030; J7050; J7060; J7070; P9012; P9016; P9017; P9034; P9047; Q9967